=== PATIENT | female | born 1940 | race Caucasian/White ===

== ENCOUNTER 2018-03-27 13:47 | Emergency (ER) | payer OTHER ==
[2018-03-27 16:05] LABS: Urine Blood 3+ (NEG); Urine Glucose NEGATIVE (NEG); Urine Protein 2+ (NEG); Urine Specific Gravity 1.015 (1.005-1.030); Urine pH 6.5 (5.0-7.0)
[2018-03-27 16:10] LABS: Urine Bacteria 20-50 /HPF (<20)
[2018-03-27 16:11] LABS: Urine Amorphous Sediment 1+ /HPF (NONE SEEN); Urine Culture Reflex Order REFLEXED; Urine Mucus 1+ /HPF (NONE SEEN)
--- NOTE | 2018-03-27 16:11 | ER ---
Nurse's Notes [facility] Name: Francie Cota Age: 77 yrs Sex: Female : 1940 Arrival Date: 03/27/2018 Time: 13:51 Bed 30 Private MD: Todd Moore Diagnosis: Urinary tract infection, site not specified Presentation: 03/27 13:56 Presenting complaint: Patient states: Urinary frequency, urgency, and lower abdominal hb pain x 2 days. Pt reports incontinent episode x 1 and passed 2 small blood clots this morning. Transition of care: patient was not received from another setting of care. Onset of symptoms was March 26, 2018. Risk Assessment: Do you want to hurt yourself or someone else? Patient reports no desire to harm self or others. Care prior to arrival: Medication(s) given: Advil x 2 and Eure 1 hr REMODELER. 13:56 Method Of Arrival: Ambulatory hb 13:56 Acuity: CHAD 3 hb 15:38 Initial Sepsis Screen: Does the patient meet any 2 criteria? No. Patient's initial rk2 sepsis screen is negative. Does the patient have a suspected source of infection? Yes: Dysuria/Frequency/Urgency/UTI. Triage Assessment: 15:33 General: Appears in no apparent distress. well developed, well nourished, Behavior is rk2 calm, cooperative. Pain:. Neuro: Level of Consciousness is alert, obeys commands, Oriented to person, place, time, situation. Respiratory: Airway is patent Respiratory effort is even, unlabored, Respiratory pattern is regular, symmetrical. Derm: Skin is pink, warm \T\ dry. Historical: - Allergies: 13:59 Sulfa (Sulfonamide Antibiotics); hb 13:59 Tape; hb - PMHx: 13:59 Depression; Hyperlipidemia; Hypothyroidism; hb - PSHx: 13:59 Hysterectomy; hb - Immunization history:: Adult Immunizations up to date. - Social history:: Smoking status: Patient/guardian denies using tobacco. - Ebola Screening: : No symptoms or risks identified at this time. Screenin:32 Abuse screen: Denies threats or abuse. Nutritional screening: No deficits noted. rk2 Tuberculosis screening: No symptoms or risk factors identified. Fall Risk None identified. Vital Signs: 13:58 BP 157 / 86; Pulse 79; Resp 16; Temp 98.5; Pulse Ox 96% on R/A; Weight 81.65 kg (R); hb Height 5 ft. 2 in. (157.48 cm); Pain 2/10; 16:25 BP 156 / 77; Pulse 67; Resp 16; Pulse Ox 97% on R/A; rk2 13:58 Body Mass Index 32.92 (81.65 kg, 157.48 cm) hb ED Course: 13:51 Patient arrived in ED. mr 13:51 Todd Moore MD is Private Physician. mr 13:58 Triage completed. hb 13:58 Arm band placed on right wrist. hb 14:47 Patient's name was called from ER lobby. No response. hb 14:59 Amira Noonan, ABY is Primary Nurse. rk2 15:03 Natanael Butler PA is PHCP. [facility] 15:03 Franko Greer MD is Attending Physician. jmm 15:38 Patient has correct armband on for positive identification. Bed in low position. Call rk2 light in reach. 16:10 Todd Moore MD is Referral Physician. [facility] 16:26 No provider procedures requiring assistance completed. Patient did not have IV access rk2 during this emergency room visit. Administered Medications: No medications were administered Outcome: 16:10 Discharge ordered by MD. [facility] 16:26 Discharged to home ambulatory. rk2 16:26 Condition: good 16:26 Discharge instructions given to patient, Prescriptions given X 2. 16:27 Patient left the ED. rk2 Signatures: Natanael Butler PA PA jmm Rivera, Maria YuenIrene RN RN Amira Noonan RN RN rk2 Corrections: (The following items were deleted from the chart) 15:57 15:54 URINALYSIS+U.LAB.BRZ drawn and sent. rk2 EDMS
--- NOTE | 2018-03-27 16:11 | EDPHYS ---
Physician Documentation [facility] Name: Francie Cota Age: 77 yrs Sex: Female : 1940 Arrival Date: 03/27/2018 Time: 13:51 Bed 30 Private MD: Todd Moore ED Physician Franko Greer HPI: 03/27 15:13 This 77 yrs old Female presents to ER via Ambulatory with complaints of jmm Urinary Problem. 15:13 Onset: The symptoms/episode began/occurred gradually, today. Associated signs and jmm symptoms: Pertinent positives:. 15:13 The patient presents with urinary symptoms, dysuria. Onset: The symptoms/episode jmm began/occurred acutely. This is a 77 year old female with a history of HLP, depression that presents to the ED with dysuria, urinary frequency, hematuria beginning today. Patient denies fever or abdominal pain. . Historical: - Allergies: 13:59 Sulfa (Sulfonamide Antibiotics); hb 13:59 Tape; hb - PMHx: 13:59 Depression; Hyperlipidemia; Hypothyroidism; hb - PSHx: 13:59 Hysterectomy; hb - Immunization history:: Adult Immunizations up to date. - Social history:: Smoking status: Patient/guardian denies using tobacco. - Ebola Screening: : No symptoms or risks identified at this time. ROS: 15:13 Constitutional: Negative for fever, chills, and weight loss, Cardiovascular: Negative jmm for chest pain, palpitations, and edema, Respiratory: Negative for shortness of breath, cough, wheezing, and pleuritic chest pain, Abdomen/GI: Negative for abdominal pain, nausea, vomiting, diarrhea, and constipation. 15:13 MS/Extremity: Negative for injury and deformity, Skin: Negative for injury, rash, and discoloration, Neuro: Negative for headache, weakness, numbness, tingling, and seizure. 15:13 : Positive for urinary symptoms, urinary frequency, burning with urination. 15:13 All other systems are negative. Exam: 15:13 Head/Face: atraumatic. Cardiovascular: Regular rate and rhythm. No gallops, murmurs, jmm or rubs. Full/Equal distal pulses. Respiratory: Lungs have equal breath sounds bilaterally, clear to auscultation. No rales, rhonchi or wheezes noted. No increased work of breathing, no retractions or nasal flaring. Abdomen/GI: Soft, non-tender, with normal bowel sounds. No distension or tympany. No guarding or rebound. No evidence of tenderness throughout. 15:13 Constitutional: The patient appears in no acute distress, alert, awake. 15:13 Musculoskeletal/extremity: ROM: intact in all extremities. 15:13 Skin: Appearance: Color: normal in color. 15:13 Neuro: Orientation: is normal, Mentation: is normal, Memory: is normal, Gait: is steady. Vital Signs: 13:58 BP 157 / 86; Pulse 79; Resp 16; Temp 98.5; Pulse Ox 96% on R/A; Weight 81.65 kg (R); hb Height 5 ft. 2 in. (157.48 cm); Pain 2/10; 16:25 BP 156 / 77; Pulse 67; Resp 16; Pulse Ox 97% on R/A; rk2 13:58 Body Mass Index 32.92 (81.65 kg, 157.48 cm) hb MDM: 15:11 Patient medically screened. [facility] 15:13 Data reviewed: vital signs, nurses notes. [facility] 18:02 Differential diagnosis: hemorrhagic cystitis, UTI. Counseling: I had a detailed [facility] discussion with the patient and/or guardian regarding: the presence of at least one elevated blood pressure reading (>120/80) during this emergency department visit. ED course: Patient's abdomen is soft, patient is non toxic in appearance, afebrile. I do not currently suspect an acute intraabdominal process or urinary tract infection. Patient will be prescribed oral antibiotics and is advised to follow up with PCP. patient given strict return precautions. patient understood and agrees with the plan of care. . 03/27 14:58 Order name: Urine Dipstick--Ancillary (enter results); Complete Time: 16:19 bd 03/27 16:04 Order name: Urine Microscopic Only; Complete Time: 16:19 EDMS Administered Medications: No medications were administered Disposition: 03/27/18 16:10 Discharged to Home. Impression: Urinary tract infection, site not specified. - Condition is Stable. - Discharge Instructions: Urinary Tract Infection. - Prescriptions for Cephalexin 500 mg Oral Capsule - take 1 capsule by ORAL route every 12 hours for 10 days; 20 capsule. Pyridium 200 mg Oral Tablet - take 1 tablet by ORAL route every 8 hours for 3 days; 9 tablet. - Medication Reconciliation Form, Thank You Letter, Antibiotic Education, Prescription Opioid Use form. - Follow up: Todd Moore MD; When: 1 - 2 days; Reason: Continuance of care. - Notes: Please follow up with your primary care provider in 1 to 2 days for reevaluation. Please return to the ED if you develop vomiting, fever, back pain or any other concerning symptoms. Addendum: 03/29/2018 09:00 Co-signature as Attending Physician, Franko Greer MD I agree with the assessment and c shaffer plan of care. Signatures: Dispatcher [employer] [facility] Franko Greer MD MD cha Mickail, Joel, PA PA jmm Baxter, Heather, RN RN Amira Alex RN RN rk2 Corrections: (The following items were deleted from the chart) 03/27 15:57 15:24 URINALYSIS+U.LAB.BRZ ordered. [facility] 16:27 16:10 03/27/2018 16:10 Discharged to Home. Impression: Urinary tract infection, site rk2 not specified. Condition is Stable. Forms are Medication Reconciliation Form, Thank You Letter, Antibiotic Education, Prescription Opioid Use. Follow up: Todd Moore; When: 1 - 2 days; Reason: Continuance of care. geremias
== END 2018-03-27 16:27 | disposition home or self-care (01) ==
LOC: ER 13:47
DX: N39.0 Urinary tract infection, site not specified (principal); E78.5 Hyperlipidemia, unspecified; E03.9 Hypothyroidism, unspecified; Z88.2 Allergy status to sulfonamides; Z91.048 Other nonmedicinal substance allergy status
CPT/HCPCS: 81003; 81015; 99282

== ENCOUNTER 2018-08-14 09:26 | Emergency (ER) | payer OTHER ==
--- NOTE | 2018-08-14 11:31 | ER ---
Nurse's Notes [facility] Name: Francie Cota Age: 77 yrs Sex: Female : 1940 Arrival Date: 08/14/2018 Time: 09:30 Bed 14 Private MD: Todd Moore Diagnosis: Acute bronchitis Presentation: 08/14 09:54 Presenting complaint: Patient states: Cough and congestion for 6 days. Transition of aj care: patient was not received from another setting of care. Onset of symptoms was August 09, 2018. Risk Assessment: Do you want to hurt yourself or someone else? Patient reports no desire to harm self or others. Initial Sepsis Screen: Does the patient meet any 2 criteria? No. Patient's initial sepsis screen is negative. Does the patient have a suspected source of infection? No. Patient's initial sepsis screen is negative. Care prior to arrival: None. 09:54 Method Of Arrival: Ambulatory 09:54 Acuity: CHAD 3 aj Triage Assessment: 09:55 General: Appears in no apparent distress. comfortable, Behavior is calm, cooperative, aj appropriate for age. Pain: Denies pain. EENT: Reports nasal congestion nasal discharge. Neuro: Level of Consciousness is awake, alert, obeys commands, Oriented to person, place, time, situation, Appropriate for age. Respiratory: Reports cough that is productive. Derm: Skin is intact, is healthy with good turgor, Skin is pink, warm \T\ dry. normal. Historical: - Allergies: 09:55 Sulfa (Sulfonamide Antibiotics); aj 09:55 Tape; aj - PMHx: 09:55 Depression; Hyperlipidemia; Hypothyroidism; aj - PSHx: 09:55 Hysterectomy; aj - Immunization history:: Adult Immunizations up to date. - Social history:: Smoking status: Patient/guardian denies using tobacco. - Ebola Screening: : Patient negative for fever greater than or equal to 101.5 degrees Fahrenheit, and additional compatible Ebola Virus Disease symptoms Patient denies exposure to infectious person Patient denies travel to an Ebola-affected area in the 21 days before illness onset No symptoms or risks identified at this time. Screenin:20 Abuse screen: Denies threats or abuse. Nutritional screening: No deficits noted. em Tuberculosis screening: No symptoms or risk factors identified. Fall Risk None identified. Assessment: 10:30 General: Appears in no apparent distress. comfortable, Behavior is calm, cooperative, em Denies fever. Pain: Denies pain. Neuro: Level of Consciousness is awake, alert, obeys commands, Oriented to person, place, time, situation. Cardiovascular: Denies chest pain, Capillary refill < 3 seconds Patient's skin is warm and dry. Respiratory: Reports cough that is productive, pain with cough Airway is patent Respiratory effort is even, unlabored, Respiratory pattern is regular, symmetrical, Breath sounds are clear bilaterally. GI: Abdomen is flat. : No signs and/or symptoms were reported regarding the genitourinary system. EENT: No signs and/or symptoms were reported regarding the EENT system. Derm: Skin is intact, Skin is pink, warm \T\ dry. Musculoskeletal: Range of motion: intact in all extremities. 10:30 Reassessment: I agree with assessment completed by Go Estrada LVN . aa5 11:40 Reassessment: Patient appears in no apparent distress at this time. Patient and/or em family updated on plan of care and expected duration. Pain level reassessed. Patient is alert, oriented x 3, equal unlabored respirations, skin warm/dry/pink. Vital Signs: 09:55 BP 150 / 73; Pulse 94; Resp 19; Temp 98.2; Pulse Ox 96% on R/A; Weight 81.65 kg; Height aj 5 ft. 2 in. (157.48 cm); 11:42 BP 135 / 93; Pulse 81; Resp 18; Pulse Ox 98% on R/A; Pain 0/10; em 09:55 Body Mass Index 32.92 (81.65 kg, 157.48 cm) ED Course: 09:30 Patient arrived in ED. mr 09:30 Todd Moore MD is Private Physician. mr 09:54 Triage completed. aj 09:55 Arm band placed on right wrist. Patient placed in an exam room. aj 10:02 Natanael Butler PA is PHCP. [facility] 10:02 Rudy Winkler MD is Attending Physician. [facility] 10:03 Natanael Butler PA is PHCP. [facility] 10:03 Rudy Winkler MD is Attending Physician. [facility] 10:16 Influenza Screen (A Sent. [facility] 10:17 Influenza Screen (a \T\ B) Sent. [facility] 10:17 Flu and/or RSV swab sent to lab. [facility] 10:20 Go Estrada LVN is Primary Nurse. em 10:21 Patient has correct armband on for positive identification. Bed in low position. Call em light in reach. 10:26 Chest Pa And Lat (2 Views) XRAY In Process Unspecified. EDMS 11:30 Todd Moore MD is Referral Physician. [facility] 11:43 No provider procedures requiring assistance completed. Patient did not have IV access em during this emergency room visit. Administered Medications: No medications were administered Outcome: 11:30 Discharge ordered by MD. m 11:43 Discharged to home ambulatory. em 11:43 Condition: good 11:43 Discharge instructions given to patient, Instructed on discharge instructions, follow up and referral plans. medication usage, Demonstrated understanding of instructions, follow-up care, medications, Prescriptions given X 3. 11:43 Patient left the ED. em Signatures: Dispatcher [employer] EDMS Nayeli Llamas, Natanael Thomas RN, PA PA [facility] Francie Garcia mr Go Estrada LVN MARBLE RUBBER Arti Delatorre RN RN Deandra Day 1 Diane Cancino [facility] Corrections: (The following items were deleted from the chart) 10:21 07:30 Patient has correct armband on for positive identification. Placed in gown. Bed em in low position. Call light in reach. em 10:26 10:23 Patient moved to radiology via wheelchair. ag1 ag1 10:27 10:23 Patient moved to radiology via wheelchair. ag1 ag1
--- NOTE | 2018-08-14 11:31 | EDPHYS ---
Physician Documentation [facility] Name: Francie Cota Age: 77 yrs Sex: Female : 1940 Arrival Date: 08/14/2018 Time: 09:30 Bed 14 Private MD: Todd Moore ED Physician Rudy Winkler HPI: 08/14 10:11 This 77 yrs old Female presents to ER via Ambulatory with complaints of jmm Cough, Congestion. 10:11 The patient or guardian reports cough, that is constant. Onset: The symptoms/episode jmm began/occurred gradually, 6 day(s) ago. Associated signs and symptoms: Pertinent positives:. This is a 77 year old female with a history of HLP that presents to the ED with productive cough after returning from a trip to [place]. Patient also complains of sinus pressure. Denies fever. . Historical: - Allergies: 09:55 Sulfa (Sulfonamide Antibiotics); aj 09:55 Tape; aj - PMHx: 09:55 Depression; Hyperlipidemia; Hypothyroidism; aj - PSHx: 09:55 Hysterectomy; aj - Immunization history:: Adult Immunizations up to date. - Social history:: Smoking status: Patient/guardian denies using tobacco. - Ebola Screening: : Patient negative for fever greater than or equal to 101.5 degrees Fahrenheit, and additional compatible Ebola Virus Disease symptoms Patient denies exposure to infectious person Patient denies travel to an Ebola-affected area in the 21 days before illness onset No symptoms or risks identified at this time. ROS: 10:11 Eyes: Negative for injury, pain, redness, and discharge, ENT: Negative for injury, jmm pain, and discharge, Cardiovascular: Negative for chest pain, palpitations, and edema. 10:11 Abdomen/GI: Negative for abdominal pain, nausea, vomiting, diarrhea, and constipation, Back: Negative for injury and pain, MS/Extremity: Negative for injury and deformity, Skin: Negative for injury, rash, and discoloration, Neuro: Negative for headache, weakness, numbness, tingling, and seizure. 10:11 Constitutional: Positive for malaise. 10:11 Respiratory: Positive for cough, with green sputum. 10:11 All other systems are negative. Exam: 10:11 Head/Face: atraumatic. Chest/axilla: Normal chest wall appearance and motion. jmm Cardiovascular: Regular rate and rhythm. No edema appreciated Respiratory: Normal respirations, no respiratory distress appreciated 10:11 Abdomen/GI: Non distended, soft Back: Normal ROM Skin: General appearance color normal MS/ Extremity: Moves all extremities, no obvious deformities appreciated, no edema noted to the lower extremities Neuro: Awake and alert, normal gait Psych: Behavior is normal, Mood is normal, Patient is cooperative and pleasant 10:11 Constitutional: The patient appears in no acute distress, alert, awake. 10:11 ENT: TM's: are normal, Posterior pharynx: is normal. 10:11 Neck: ROM/movement: is normal. Vital Signs: 09:55 BP 150 / 73; Pulse 94; Resp 19; Temp 98.2; Pulse Ox 96% on R/A; Weight 81.65 kg; Height aj 5 ft. 2 in. (157.48 cm); 11:42 BP 135 / 93; Pulse 81; Resp 18; Pulse Ox 98% on R/A; Pain 0/10; em 09:55 Body Mass Index 32.92 (81.65 kg, 157.48 cm) aj MDM: 10:08 Patient medically screened. [facility] 10:11 Data reviewed: vital signs, nurses notes. Data interpreted: Pulse oximetry: on room air [facility] is 96 %. Interpretation: normal. Counseling: I had a detailed discussion with the patient and/or guardian regarding:. 11:30 Counseling: I had a detailed discussion with the patient and/or guardian regarding: the [facility] historical points, exam findings, and any diagnostic results supporting the discharge/admit diagnosis, lab results, radiology results, the need for outpatient follow up, to return to the emergency department if symptoms worsen or persist or if there are any questions or concerns that arise at home. 08/14 10:08 Order name: Influenza Screen (a \T\ B) [facility] 08/14 10:09 Order name: Influenza Screen (A ; Complete Time: 10:42 EDMS 08/14 10:08 Order name: Chest Pa And Lat (2 Views) XRAY [facility] Administered Medications: No medications were administered Disposition: 18:01 Co-signature as Attending Physician, Rudy Winkler MD. Disposition: 08/14/18 11:30 Discharged to Home. Impression: Acute bronchitis. - Condition is Stable. - Discharge Instructions: Acute Bronchitis, Adult. - Prescriptions for Prednisone 20 mg Oral Tablet - take 3 tablet by ORAL route once daily for 5 days; 15 tablet. Zithromax Z- Jerardo 250 mg Oral Tablet - take 1 tablet by ORAL route as directed for 5 days Day 1 - take two (2) tablets one time. Day 2, 3, 4 , 5 take one (1) tablet once daily.; 6 tablet. Albuterol Sulfate 90 mcg/actuation - inhale 1-2 puff by INHALATION route every 4-6 hours; 1 Inhaler. - Medication Reconciliation Form, Thank You Letter, Antibiotic Education, Prescription Opioid Use form. - Follow up: Todd Moore MD; When: 2 - 3 days; Reason: Recheck today's complaints, Continuance of care, Re-evaluation by your physician. Signatures: Dispatcher [employer] Nayeli Alcantara, Natanael Thomas RN, PA PA Go Diaz, SIGNAL CIRCUIT DESIGNER SIGNAL CIRCUIT DESIGNER em Rudy Winkler MD MD gs Corrections: (The following items were deleted from the chart) 11:43 11:30 08/14/2018 11:30 Discharged to Home. Impression: Acute bronchitis. Condition is em Stable. Forms are Medication Reconciliation Form, Thank You Letter, Antibiotic Education, Prescription Opioid Use. Follow up: Todd Moore; When: 2 - 3 days; Reason: Recheck today's complaints, Continuance of care, Re-evaluation by your physician. caroline
--- NOTE | 2018-08-14 12:32 | RAD REPORT ---
EXAM DESCRIPTION: Elmira Huerta (2 Views)08/14/2018 10:28 am CLINICAL HISTORY: Cough COMPARISON: 2017 FINDINGS: The lungs appear clear of acute infiltrate. The heart is normal size. A small to moderate hiatal hernia is seen. IMPRESSION: No acute abnormalities displayed
== END 2018-08-14 11:43 | disposition home or self-care (01) ==
LOC: ER 09:26
DX: J20.9 Acute bronchitis, unspecified (principal); Z88.2 Allergy status to sulfonamides; Z91.048 Other nonmedicinal substance allergy status
CPT/HCPCS: 71046; 87804; 99283

== ENCOUNTER 2019-03-16 15:38 | Emergency (ER) | payer OTHER ==
--- NOTE | 2019-03-16 17:24 | ER ---
Nurse's Notes [facility] Name: Francie Cota Age: 78 yrs Sex: Female : 1940 Arrival Date: 03/16/2019 Time: 15:39 Bed 4 Private MD: oTdd Moore Diagnosis: Superficial injury of head;Abrasion of unspecified part of head Presentation: 03/16 15:40 Presenting complaint: Patient states: "I lost balance trying to greens picker a rock and I aa5 went down the hill". Unknown LOC. Abrasions noted to left side of face. Pt also c/o numbness to right side of face and headache that began Thursday. Precision Devices Inspector/Tester are equal and no drift noted. 15:40 Transition of care: patient was not received from another setting of care. Onset of aa5 symptoms was March 16, 2019. Risk Assessment: Do you want to hurt yourself or someone else? Patient reports no desire to harm self or others. Care prior to arrival: None. 15:40 Acuity: CHAD 2 aa5 15:40 Method Of Arrival: Wheelchair aa5 Historical: - Allergies: 15:40 Sulfa (Sulfonamide Antibiotics); aa5 15:40 Tape; aa5 - PMHx: 15:40 Depression; Hyperlipidemia; Hypothyroidism; Broken skull to right frontral side; aa5 - PSHx: 15:40 Hysterectomy; back sx; aa5 - Ebola Screening: : No symptoms or risks identified at this time. Vital Signs: 15:40 BP 147 / 94; Pulse 77; Resp 18 S; Temp 97.5(TE); Pulse Ox 98% on R/A; aa5 ED Course: 15:39 Patient arrived in ED. rg4 15:39 Todd Moore MD is Private Physician. rg4 15:40 Arm band placed on Patient placed in an exam room, on a stretcher. aa5 15:47 Vikas Rodriguez, ABY is Primary Nurse. sg 15:49 Triage completed. aa5 15:50 Yovany Avalos PA is PHCP. jr8 15:50 Franko Greer MD is Attending Physician. jr8 16:27 CT Head Brain wo Cont In Process Unspecified. EDMS 17:23 Todd Moore MD is Referral Physician. jr8 Administered Medications: No medications were administered Outcome: 17:23 Discharge ordered by MD. العلي 17:57 Patient left the ED. iw Signatures: Dispatcher [employer] EDMS Vikas Rodriguez RN Brea Giang RN RN iw Calderon, Audri, RN RN aa5 Yovany Avalos PA PA jr8 Garcia, Rubi 4
--- NOTE | 2019-03-16 17:24 | EDPHYS ---
Physician Documentation [facility] Name: Francie Cota Age: 78 yrs Sex: Female : 1940 Arrival Date: 03/16/2019 Time: 15:39 Bed 4 Private MD: Todd Moore ED Physician Franko Greer HPI: 03/16 17:17 This 78 yrs old Female presents to ER via Wheelchair with complaints of Fall jr8 Injury. 17:17 Details of fall: The patient fell from an upright position, while standing. Onset: The jr8 symptoms/episode began/occurred acutely, today. Associated injuries: The patient sustained injury to the head, abrasion, hematoma, pain, tenderness. Severity of symptoms: At their worst the symptoms were moderate, in the emergency department the symptoms have improved. It is unknown whether or not the patient has had similar symptoms in the past. The patient has not recently seen a physician. Patient stated that she has also had a mild headache since this past Thursday and noted numbness to right side of face. Denies any other symptoms . 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 ROS: 17:17 Eyes: Negative for injury, pain, redness, and discharge, ENT: Negative for injury, jr8 pain, and discharge, Neck: Negative for injury, pain, and swelling, Cardiovascular: Negative for chest pain, palpitations, and edema, Respiratory: Negative for shortness of breath, cough, wheezing, and pleuritic chest pain, Abdomen/GI: Negative for abdominal pain, nausea, vomiting, diarrhea, and constipation, Back: Negative for injury and pain, MS/Extremity: Negative for injury and deformity. 17:17 Skin: Positive for avulsion, ecchymosis, hematoma, of the face. 17:17 Neuro: Positive for headache, numbness. Exam: 17:17 Eyes: Pupils equal round and reactive to light, extra-ocular motions intact. Lids and jr8 lashes normal. Conjunctiva and sclera are non-icteric and not injected. Cornea within normal limits. Periorbital areas with no swelling, redness, or edema. ENT: Nares patent. No nasal discharge, no septal abnormalities noted. Tympanic membranes are normal and external auditory canals are clear. Oropharynx with no redness, swelling, or masses, exudates, or evidence of obstruction, uvula midline. Mucous membranes moist. Neck: Trachea midline, no thyromegaly or masses palpated, and no cervical lymphadenopathy. Supple, full range of motion without nuchal rigidity, or vertebral point tenderness. No Meningismus. Cardiovascular: Regular rate and rhythm with a normal S1 and S2. No gallops, murmurs, or rubs. Normal PMI, no JVD. No pulse deficits. Respiratory: Lungs have equal breath sounds bilaterally, clear to auscultation and percussion. No rales, rhonchi or wheezes noted. No increased work of breathing, no retractions or nasal flaring. Abdomen/GI: Soft, non-tender, with normal bowel sounds. No distension or tympany. No guarding or rebound. No evidence of tenderness throughout. Back: No spinal tenderness. No costovertebral tenderness. Full range of motion. Skin: Warm, dry with normal turgor. Normal color with no rashes, no lesions, and no evidence of cellulitis. MS/ Extremity: Pulses equal, no cyanosis. Neurovascular intact. Full, normal range of motion. Neuro: Awake and alert, GCS 15, oriented to person, place, time, and situation. Cranial nerves II-XII grossly intact. Motor strength 5/5 in all extremities. Sensory grossly intact. Cerebellar exam normal. Normal gait. 17:17 Head/face: Noted is abrasion(s), that are mild, of the forehead and left cheek, hematoma, that is moderate, of the forehead left side just above and into supraorbital region . Vital Signs: 15:40 BP 147 / 94; Pulse 77; Resp 18 S; Temp 97.5(TE); Pulse Ox 98% on R/A; aa5 MDM: 15:56 Patient medically screened. jr8 17:17 Data reviewed: vital signs, nurses notes, radiologic studies, CT scan, and as a result, jr8 I will discharge patient. Data interpreted: Pulse oximetry: on room air is 98 %. Interpretation: normal. Counseling: I had a detailed discussion with the patient and/or guardian regarding: the historical points, exam findings, and any diagnostic results supporting the discharge/admit diagnosis, radiology results, the need for outpatient follow up, a family practitioner, to return to the emergency department if symptoms worsen or persist or if there are any questions or concerns that arise at home. ED course: Discussed with patient and family there there are no focal neurologic deficits on physical exam. CT does not reveal any ischemic lesion, mass, bleed, or cranial fracture. Would f/u with the headache and numbness. could be something else manifesting but has not presented itself yet such as zoster infection or carmichael's palsy. Migraines can also cause this. To monitor closely over the next couple of days. If worse to come back. Otherwise ice on/off for acute injury. Family and patient good with this . 03/16 16:01 Order name: CT Head Brain wo Cont jr8 Administered Medications: No medications were administered Disposition: 03/17 07:06 Co-signature as Attending Physician, Franko Greer MD I agree with the assessment and temo plan of care. Disposition: 03/16/19 17:23 Discharged to Home. Impression: Superficial injury of head, Abrasion of unspecified part of head. - Condition is Stable. - Discharge Instructions: Head Injury, Adult, Hematoma. - Medication Reconciliation Form, Thank You Letter, Antibiotic Education, Prescription Opioid Use form. - Follow up: Todd Moore MD; When: 2 - 3 days; Reason: Recheck today's complaints, Continuance of care, Re-evaluation by your physician. - Problem is new. - Symptoms have improved. Signatures: Dispatcher [employer] EDFranko Grace MD MD cha Williams, Irene RN Arti Quiñonez RN RN aa5 Yovany Avalos PA PA jr8 Corrections: (The following items were deleted from the chart) 03/16 17:57 17:23 03/16/2019 17:23 Discharged to Home. Impression: Superficial injury of head; iw Abrasion of unspecified part of head. Condition is Stable. Forms are Medication Reconciliation Form, Thank You Letter, Antibiotic Education, Prescription Opioid Use. Follow up: Todd Moore; When: 2 - 3 days; Reason: Recheck today's complaints, Continuance of care, Re-evaluation by your physician. Problem is new. Symptoms have improved. jr8
--- NOTE | 2019-03-17 12:08 | RAD REPORT ---
EXAM DESCRIPTION: CT - Head Brain Wo Cont - 03/17/2019 11:34 am CLINICAL HISTORY: Head injury status post fall COMPARISON: None. TECHNIQUE: Computed axial tomography of the head was obtained. IV contrast was not requested. All CT scans are performed using dose optimization technique as appropriate and may include automated exposure control or mA/KV adjustment according to patient size. FINDINGS: Left frontal scalp hematoma. An intracranial bleed is not seen . The ventricles are normal in caliber. No extra-axial fluid collection is noted. Moderate bilateral low-density areas within periventricular , deep and subcortical white matter probably ischemic changes secondary to small vessel disease Fluid within the sinuses/ mastoids is not seen. IMPRESSION: No acute intracranial abnormality is seen. If patient's symptoms persist MRI of the bra in would be recommended.
== END 2019-03-16 17:57 | disposition home or self-care (01) ==
LOC: ER 15:38
DX: S00.91XA Abrasion of unspecified part of head, initial encounter (principal); S00.90XA Unspecified superficial injury of unspecified part of head, initial encounter; W18.30XA Fall on same level, unspecified, initial encounter; F32.9 Major depressive disorder, single episode, unspecified; E78.5 Hyperlipidemia, unspecified; E03.9 Hypothyroidism, unspecified; Z88.2 Allergy status to sulfonamides
CPT/HCPCS: 70450; 99282

== ENCOUNTER 2019-07-28 10:51 | Emergency (ER) | payer OTHER ==
[2019-07-28 12:17] LABS: Absolute Lymphocytes (CBC) 3.3 K/uL (0.7-4.9); Basophils % 0.4 % (0-1.3); MPV 10.2 fL (7.6-11.3); RBC Red Blood Cell Count 4.31 M/uL (3.86-4.86)
[2019-07-28 12:37] LABS: Albumin 4.3 g/dL (3.4-5.0); Bilirubin Direct 0.2 mg/dL (0-0.2); Bilirubin Total 0.5 mg/dL (0.2-1.0)
--- NOTE | 2019-07-28 13:35 | RAD REPORT ---
EXAM DESCRIPTION: CTAbdomen Pelvis W Contrast - 07/28/2019 1:24 pm CLINICAL HISTORY: Abdominal pain. left sided abdominal pain COMPARISON: No comparisons TECHNIQUE: Biphasic CT imaging of the abdomen and pelvis was performed with 100 ml non-ionic IV cont rast. All CT scans are performed using dose optimization technique as appropriate and may include automated exposure control or mA/KV adjustment according to patient size. FINDINGS: The lung bases are clear. Moderate axial hiatal hernia. The liver, spleen, pancreas, adrenal glands and kidneys are within normal limits. No bowel obstruction, free air, free fluid or abscess. Scattered colonic diverticula. The appendix is normal. No evidence of significant lymphadenopathy. Postsurgical changes lower lumbar spine with hardware in place. IMPRESSION: No acute intra-abdominal or pelvic finding. Moderate spondylosis lower lumbar spine with hardware in place. Moderate axial hiatal hernia.
[2019-07-28 15:49] LABS: Urine Bacteria <20 /HPF (<20); Urine Culture Reflex Order NOT NEEDED
--- NOTE | 2019-07-28 15:55 | EDPHYS ---
Physician Documentation [facility] Name: Francie Cota Age: 78 yrs Sex: Female : 1940 Arrival Date: 07/28/2019 Time: 10:54 Bed 14 Private MD: Todd Moore ED Physician Rudy Winkler HPI: 07/28 11:40 This 78 yrs old Female presents to ER via Ambulatory with complaints of Back jmm Pain. 11:40 The patient presents with pain that is acute. The symptoms are located in the left jmm flank and right flank. Onset: The symptoms/episode began/occurred gradually, 1 week(s) ago. The pain radiates to the abdomen. Associated signs and symptoms: Pertinent positives: abdominal pain, Pertinent negatives:. This is a 78 year old female with a history of HTN, HLP that presents to the ED with complaints of bilaterally flank pain beginning 1 week ago. patient has taken Macrobid without relief. also complains of left sided abdominal pain. Denies vomiting or diarrhea. Complains of subjective fever. . 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 - Social history:: Smoking status: Patient/guardian denies using tobacco, Patient/guardian denies using alcohol, street drugs. - Ebola Screening: : Patient negative for fever greater than or equal to 101.5 degrees Fahrenheit, and additional compatible Ebola Virus Disease symptoms Patient denies exposure to infectious person Patient denies travel to an Ebola-affected area in the 21 days before illness onset No symptoms or risks identified at this time. ROS: 11:40 Cardiovascular: Negative for chest pain, palpitations, and edema, Respiratory: Negative jmm for shortness of breath, cough, wheezing, and pleuritic chest pain. 11:40 Constitutional: Positive for body aches, chills, malaise. 11:40 Abdomen/GI: Positive for abdominal pain. 11:40 Back: Positive for flank pain, bilaterally. 11:40 MS/extremity: Positive for 11:40 Skin: 11:40 All other systems are negative. Exam: 11:40 Constitutional: This is a well developed, well nourished patient who is awake, alert, jmm and in no acute distress. Head/Face: atraumatic. Eyes: EOMI, no conjunctival erythema appreciated ENT: Moist Mucus Membranes Neck: Trachea midline, Supple Chest/axilla: Normal chest wall appearance and motion. Cardiovascular: Regular rate and rhythm. No edema appreciated Respiratory: Normal respirations, no respiratory distress appreciated 11:40 Abdomen/GI: Inspection: abdomen appears normal, Bowel sounds: normal, Palpation: soft, moderate abdominal tenderness, in the left lower quadrant. 11:40 : CVA tenderness, noted bilaterally. 11:40 Musculoskeletal/extremity: ROM: intact in all extremities. 11:40 Skin: Appearance: Color: normal in color. 11:40 Neuro: Orientation: is normal, Mentation: is normal, Memory: is normal. 11:40 Psych: Behavior/mood is pleasant, cooperative. Vital Signs: 11:13 BP 128 / 91; Pulse 91; Resp 16; Temp 98.3; Pulse Ox 99% on R/A; Weight 83.91 kg; Height ch 5 ft. 2 in. (157.48 cm); Pain 8/10; 12:13 BP 132 / 75; Pulse 74; Resp 17; Pulse Ox 96% on R/A; Pain 8/10; rb1 13:30 BP 126 / 85; Pulse 77; Resp 16; Pulse Ox 98% on R/A; rb1 14:30 BP 166 / 68; Pulse 74; Resp 16; Pulse Ox 99% on R/A; rb1 15:30 BP 155 / 86; Pulse 85; Resp 17; Pulse Ox 98% on R/A; Pain 6/10; rb1 11:13 Body Mass Index 33.84 (83.91 kg, 157.48 cm) ch 13:[address] rb1 MDM: 11:30 Patient medically screened. [facility] 15:53 Data reviewed: vital signs, nurses notes. Counseling: I had a detailed discussion with caroline the patient and/or guardian regarding: the historical points, exam findings, and any diagnostic results supporting the discharge/admit diagnosis, lab results, radiology results, the need for outpatient follow up, to return to the emergency department if symptoms worsen or persist or if there are any questions or concerns that arise at home. ED course: Patient is alert and non toxic in appearance in the ED. Patient advised to follow up with Urology or PCP for reevaluation. Patient is otherwise given strict return precautions. Patient understood and agrees with the plan of care. . 07/28 11:37 Order name: Basic Metabolic Panel; Complete Time: 12:57 [facility] 07/28 11:37 Order name: CBC with Diff; Complete Time: 12:57 [facility] 07/28 11:37 Order name: Creatinine for Radiology; Complete Time: 12:57 [facility] 07/28 11:37 Order name: Hepatic Function; Complete Time: 12:57 [facility] 07/28 11:37 Order name: Lipase; Complete Time: 12:57 [facility] 07/28 11:37 Order name: Lactate; Complete Time: 12:57 [facility] 07/28 11:37 Order name: IV Saline Lock; Complete Time: 12:13 [facility] 07/28 11:37 Order name: Labs collected and sent; Complete Time: 12:13 [facility] 07/28 11:37 Order name: Blood Culture Adult (2) [facility] 07/28 11:37 Order name: Procalcitonin; Complete Time: 14:08 [facility] 07/28 11:40 Order name: CT Abd/Pelvis - IV Contrast Only; Complete Time: 13:42 [facility] 07/28 13:43 Order name: Urine Dipstick-Ancillary (obtain specimen); Complete Time: 15:30 [facility] 07/28 13:43 Order name: Urine Culture [facility] 07/28 13:43 Order name: Urine Microscopic Only; Complete Time: 15:52 jmm Administered Medications: No medications were administered Disposition: 17:25 Co-signature as Attending Physician, Rudy Winkler MD. Disposition: 07/28/19 15:54 Discharged to Home. Impression: Urinary tract infection, site not specified. - Condition is Stable. - Discharge Instructions: Urinary Tract Infection, Adult. - Prescriptions for Cephalexin 500 mg Oral Capsule - take 1 capsule by ORAL route every 12 hours for 10 days; 20 capsule. - Medication Reconciliation Form, Thank You Letter, Antibiotic Education, Prescription Opioid Use form. - Follow up: Joan Sage MD; When: 2 - 3 days; Reason: Recheck today's complaints, Continuance of care, Re-evaluation by your physician. Signatures: Dispatcher [employer] EDMS Carina James, RN RN ch Natanael Butler PA PA jmm Barber, Rebecca, RN RN rb1 Rudy Winkler MD MD gs Corrections: (The following items were deleted from the chart) 16:09 15:54 07/28/2019 15:54 Discharged to Home. Impression: Urinary tract infection, site rb1 not specified. Condition is Stable. Forms are Medication Reconciliation Form, Thank You Letter, Antibiotic Education, Prescription Opioid Use. Follow up: Joan Sage; When: 2 - 3 days; Reason: Recheck today's complaints, Continuance of care, Re-evaluation by your physician. caroline
--- NOTE | 2019-07-28 15:55 | ER ---
Nurse's Notes [facility] Name: Francie Cota Age: 78 yrs Sex: Female : 1940 Arrival Date: 07/28/2019 Time: 10:54 Bed 14 Private MD: Todd Moore Diagnosis: Urinary tract infection, site not specified Presentation: 07/28 11:11 Presenting complaint: Patient states: lower back R side pain. being treated for UTI ch since 07/20, took macrobid but still feeling bad. Transition of care: patient was not received from another setting of care. Onset of symptoms was July 19, 2019. Risk Assessment: Do you want to hurt yourself or someone else? Patient reports no desire to harm self or others. Initial Sepsis Screen: Does the patient meet any 2 criteria? No. Patient's initial sepsis screen is negative. Does the patient have a suspected source of infection? No. Patient's initial sepsis screen is negative. 11:11 Method Of Arrival: Ambulatory 11:11 Acuity: CHAD 3 11:20 Care prior to arrival: None. rb1 Triage Assessment: 11:13 General: Appears in no apparent distress. uncomfortable, Behavior is calm, cooperative, ch appropriate for age. Pain: Complains of pain in low back area and right low back Pain currently is 8 out of 10 on a pain scale. Respiratory: No deficits noted. Musculoskeletal: Circulation, motion, and sensation intact. Capillary refill < 3 seconds. 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 - Social history:: Smoking status: Patient/guardian denies using tobacco, Patient/guardian denies using alcohol, street drugs. - Ebola Screening: : Patient negative for fever greater than or equal to 101.5 degrees Fahrenheit, and additional compatible Ebola Virus Disease symptoms Patient denies exposure to infectious person Patient denies travel to an Ebola-affected area in the 21 days before illness onset No symptoms or risks identified at this time. Screenin:20 Abuse screen: Denies threats or abuse. Nutritional screening: No deficits noted. rb1 Tuberculosis screening: No symptoms or risk factors identified. Fall Risk None identified. Assessment: 11:20 General: Appears uncomfortable, Behavior is calm, cooperative, Denies fever. Pain: rb1 Complains of pain in right low back Pain currently is 8 out of 10 on a pain scale. Pain began 1 day ago. Neuro: Level of Consciousness is awake, alert, obeys commands, Oriented to person, place, time, situation. Cardiovascular: Capillary refill < 3 seconds is brisk in bilateral fingers. Respiratory: Airway is patent Respiratory effort is even, unlabored, Respiratory pattern is regular, symmetrical. GI: No signs and/or symptoms were reported involving the gastrointestinal system. : No signs and/or symptoms were reported regarding the genitourinary system. Derm: Skin is pink, warm \T\ dry. Musculoskeletal: Range of motion: intact in all extremities. 12:20 Reassessment: Patient appears in no apparent distress at this time. No changes from rb1 previously documented assessment. 13:11 Reassessment: Pt. went to CT. rb1 13:31 Reassessment: Patient appears in no apparent distress at this time. Patient and/or rb1 family updated on plan of care and expected duration. Pain level reassessed. Patient is alert, oriented x 3, equal unlabored respirations, skin warm/dry/pink. 14:27 Reassessment: Patient appears in no apparent distress at this time. No changes from rb1 previously documented assessment. 15:27 Reassessment: Patient appears in no apparent distress at this time. Patient and/or rb1 family updated on plan of care and expected duration. Pain level reassessed. Patient is alert, oriented x 3, equal unlabored respirations, skin warm/dry/pink. Provider at bedside. Vital Signs: 11:13 BP 128 / 91; Pulse 91; Resp 16; Temp 98.3; Pulse Ox 99% on R/A; Weight 83.91 kg; Height ch 5 ft. 2 in. (157.48 cm); Pain 8/10; 12:13 BP 132 / 75; Pulse 74; Resp 17; Pulse Ox 96% on R/A; Pain 8/10; rb1 13:30 BP 126 / 85; Pulse 77; Resp 16; Pulse Ox 98% on R/A; rb1 14:30 BP 166 / 68; Pulse 74; Resp 16; Pulse Ox 99% on R/A; rb1 15:30 BP 155 / 86; Pulse 85; Resp 17; Pulse Ox 98% on R/A; Pain 6/10; rb1 11:13 Body Mass Index 33.84 (83.91 kg, 157.48 cm) 13:[address] rb1 ED Course: 10:54 Patient arrived in ED. as 10:55 Todd Moore MD is Private Physician. as 11:12 Triage completed. 11:13 Arm band placed on left wrist. Patient placed in an exam room, on a stretcher. 11:19 Sylvia Workman, RN is Primary Nurse. rb1 11:20 Patient has correct armband on for positive identification. Bed in low position. Call [facility] light in reach. Side rails up X 1. Pulse ox on. NIBP on. Warm blanket given. 11:25 Natanael Butler PA is PHCP. [facility] 11:25 Rudy Winkler MD is Attending Physician. [facility] 11:55 Inserted saline lock: 22 gauge in right antecubital area, using aseptic technique. rb1 Blood collected. 12:26 Second set of blood cultures drawn by wi. kj1 13:24 CT Abd/Pelvis - IV Contrast Only In Process Unspecified. EDMS 15:54 Joan Sage MD is Referral Physician. [facility] 16:08 No provider procedures requiring assistance completed. IV discontinued, intact, rb1 bleeding controlled, No redness/swelling at site. Pressure dressing applied. Administered Medications: No medications were administered Outcome: 15:54 Discharge ordered by . [facility] 16:08 Discharged to home ambulatory. [facility] 16:08 Condition: stable 16:08 Discharge instructions given to patient, Instructed on discharge instructions, follow up and referral plans. medication usage, Demonstrated understanding of instructions, follow-up care, medications, Prescriptions given X 1. 16:09 Patient left the ED. rb1 Addendum: 07/31/2019 08:25 Addendum: Culture Results: Positive urine culture. No further action required. Bacteria i w sensitive to prescribed antibiotic. Signatures: Dispatcher [employer] EDMS Carina James, RN ABY Natanael Butler PA PA Tamara Stanton as Brea Anderson RN RN Sylvia Workman, ABY RN [facility] Ana Elizondo kj1
[2019-07-28 17:26] VITALS: TEMP 98.3
[2019-07-28 17:31] VITALS: BP 155/86; O2SAT 98
== END 2019-07-28 16:09 | disposition home or self-care (01) ==
LOC: ER 10:51
DX: N39.0 Urinary tract infection, site not specified (principal); I10 Essential (primary) hypertension; Z88.2 Allergy status to sulfonamides; Z91.048 Other nonmedicinal substance allergy status
CPT/HCPCS: 87040 ×2; 87088; 85025; 87086; 80048; 36415; 80076; 83605; 87077; 87186; 81015; 83690; 84145; 74177; 99284; Q9967

== ENCOUNTER 2019-11-19 12:57 | Emergency (ER) | payer OTHER ==
--- NOTE | 2019-11-19 14:18 | ER ---
Nurse's Notes [facility] Name: Francie Cota Age: 79 yrs Sex: Female : 1940 Arrival Date: 11/19/2019 Time: 13:00 Bed 16 Private MD: Diagnosis: Left distal fibula fracture;Sprain of ankle Presentation: 11/19 13:01 Presenting complaint: Right ankle pain after mechanical fall from standing 1 week ago. hb Transition of care: patient was not received from another setting of care. Onset of symptoms was November 13, 2019. Risk Assessment: Do you want to hurt yourself or someone else? Patient reports no desire to harm self or others. Initial Sepsis Screen: Does the patient meet any 2 criteria? No. Patient's initial sepsis screen is negative. Does the patient have a suspected source of infection? No. Patient's initial sepsis screen is negative. Care prior to arrival: None. 13:01 Method Of Arrival: Ambulatory hb 13:01 Acuity: CHAD 4 hb Historical: - Allergies: 13:03 Sulfa (Sulfonamide Antibiotics); hb 13:03 Tape; hb - PMHx: 13:03 Broken skull to right frontral side; Depression; Hyperlipidemia; Hypothyroidism; hb - PSHx: 13:03 Hysterectomy; hb - Immunization history:: Adult Immunizations up to date. - Coronavirus screen:: The patient has NOT traveled to [place], [place], or [place] in the past 14 days. The patient has NOT had contact with known/suspected case of Coronavirus? Proceed with normal triage procedures. - Social history:: Smoking status: Patient denies any tobacco usage or history of. - Ebola Screening: : No symptoms or risks identified at this time. Screenin:16 Abuse screen: Denies threats or abuse. Denies injuries from another. Nutritional aj1 screening: No deficits noted. Tuberculosis screening: No symptoms or risk factors identified. 15:01 Fall Risk None identified. aj1 Assessment: 13:16 General: Appears in no apparent distress. comfortable, Behavior is calm, cooperative, aj1 appropriate for age. Pain: Complains of pain in right ankle. Neuro: Level of Consciousness is awake, alert, obeys commands, Oriented to person, place, time, situation. Cardiovascular: Patient's skin is warm and dry. Respiratory: Airway is patent Respiratory effort is even, unlabored, Respiratory pattern is regular, symmetrical. GI: No signs and/or symptoms were reported involving the gastrointestinal system. : No signs and/or symptoms were reported regarding the genitourinary system. EENT: No signs and/or symptoms were reported regarding the EENT system. Derm: No signs and/or symptoms reported regarding the dermatologic system. Skin is pink, warm \T\ dry. normal. Musculoskeletal: Range of motion: limited in right ankle. 14:15 Reassessment: Patient appears in no apparent distress at this time. No changes from aj1 previously documented assessment. Patient and/or family updated on plan of care and expected duration. Pain level reassessed. Patient is alert, oriented x 3, equal unlabored respirations, skin warm/dry/pink. Vital Signs: 13:03 BP 127 / 97; Pulse 81; Resp 16; Temp 97.2; Pulse Ox 96% on R/A; Weight 81.65 kg; Height hb 5 ft. 2 in. (157.48 cm); Pain 5/10; 15:00 BP 122 / 85; Pulse 78; Resp 18; Pulse Ox 97% on R/A; aj1 13:03 Body Mass Index 32.92 (81.65 kg, 157.48 cm) ED Course: 13:00 Patient arrived in ED. mr 13:02 Triage completed. hb 13:03 Arm band placed on. hb 13:04 Natanael Butler PA is PHCP. [facility] 13:04 Franko Greer MD is Attending Physician. [facility] 13:13 PHCP role handed off by Natanael Butler PA sn 13:13 Maral Roberts FNP-C is PHCP. snw 13:16 Emerald Sosa, ABY is Primary Nurse. aj1 13:16 Patient has correct armband on for positive identification. Bed in low position. Call aj1 light in reach. 13:16 No provider procedures requiring assistance completed. aj1 13:55 Ankle Right 3 View XRAY In Process Unspecified. EDMS 15:00 Patient did not have IV access during this emergency room visit. aj1 15:01 walking boot applied per orders. aj1 Administered Medications: No medications were administered Outcome: 14:17 Discharge ordered by . snw 15:01 Discharged to home ambulatory, via wheelchair. aj1 15:01 Condition: good 15:01 Discharge instructions given to patient, Instructed on discharge instructions, follow up and referral plans. medication usage, Demonstrated understanding of instructions, follow-up care, medications, Prescriptions given X 1. 15:02 Patient left the ED. aj1 Signatures: Dispatcher [employer] Emerald Constantino, ABY RN aj1 Maral Roberts, DAYCARE PROVIDER-C DAYCARE PROVIDER-Csnw Natanael Butler PA PA jmm Rivera, Mary mr Baxter, Heather, RN RN
--- NOTE | 2019-11-19 14:18 | EDPHYS ---
Physician Documentation [facility] Name: Francie Cota Age: 79 yrs Sex: Female : 1940 Arrival Date: 11/19/2019 Time: 13:00 Bed 16 Private MD: LAURA Physician Franko Greer HPI: 11/19 13:38 This 79 yrs old Female presents to ER via Ambulatory with complaints of Ankle snw Injury. 13:38 The patient presents with pain, that is acute. The complaints affect the right ankle. snw Onset: The symptoms/episode began/occurred suddenly, 1 week(s) ago, and became persistent. Context: The problem was sustained at home, resulted from a mis-step by the patient, on a carpet edge, The mechanism of injury is unknown. The patient can partially bear weight on the affected extremity. the patient is able to ambulate. Associated signs and symptoms: The patient has no apparent associated signs or symptoms. Severity of symptoms: At their worst the symptoms were moderate. It is unknown whether or not the patient has had similar symptoms in the past. The patient has not recently seen a physician. Historical: - Allergies: 13:03 Sulfa (Sulfonamide Antibiotics); hb 13:03 Tape; hb - PMHx: 13:03 Broken skull to right frontral side; Depression; Hyperlipidemia; Hypothyroidism; hb - PSHx: 13:03 Hysterectomy; hb - Immunization history:: Adult Immunizations up to date. - Coronavirus screen:: The patient has NOT traveled to [place], [place], or [place] in the past 14 days. The patient has NOT had contact with known/suspected case of Coronavirus? Proceed with normal triage procedures. - Social history:: Smoking status: Patient denies any tobacco usage or history of. - Ebola Screening: : No symptoms or risks identified at this time. ROS: 13:38 Constitutional: Negative for fever, chills, and weight loss, Eyes: Negative for injury, snw pain, redness, and discharge, ENT: Negative for injury, pain, and discharge, Neck: Negative for injury, pain, and swelling, Cardiovascular: Negative for chest pain, palpitations, and edema, Respiratory: Negative for shortness of breath, cough, wheezing, and pleuritic chest pain, Abdomen/GI: Negative for abdominal pain, nausea, vomiting, diarrhea, and constipation, Back: Negative for injury and pain, : Negative for injury, bleeding, discharge, and swelling, Skin: Negative for injury, rash, and discoloration, Neuro: Negative for headache, weakness, numbness, tingling, and seizure, Psych: Negative for depression, anxiety, suicide ideation, homicidal ideation, and hallucinations, Allergy/Immunology: Negative for hives, rash, and allergies. 13:38 MS/extremity: Positive for injury or acute deformity, tenderness, of the right ankle. Exam: 13:36 Constitutional: This is a well developed, well nourished patient who is awake, alert, snw and in no acute distress. Head/Face: Normocephalic, atraumatic. Eyes: Pupils equal round and reactive to light, extra-ocular motions intact. Lids and lashes normal. Conjunctiva and sclera are non-icteric and not injected. Cornea within normal limits. Periorbital areas with no swelling, redness, or edema. ENT: Nares patent. No nasal discharge, no septal abnormalities noted. Tympanic membranes are normal and external auditory canals are clear. Oropharynx with no redness, swelling, or masses, exudates, or evidence of obstruction, uvula midline. Mucous membranes moist. Neck: Trachea midline, no thyromegaly or masses palpated, and no cervical lymphadenopathy. Supple, full range of motion without nuchal rigidity, or vertebral point tenderness. No Meningismus. Chest/axilla: Normal chest wall appearance and motion. Nontender with no deformity. No lesions are appreciated. Cardiovascular: Regular rate and rhythm with a normal S1 and S2. No gallops, murmurs, or rubs. Normal PMI, no JVD. No pulse deficits. Respiratory: Lungs have equal breath sounds bilaterally, clear to auscultation and percussion. No rales, rhonchi or wheezes noted. No increased work of breathing, no retractions or nasal flaring. Abdomen/GI: Soft, non-tender, with normal bowel sounds. No distension or tympany. No guarding or rebound. No evidence of tenderness throughout. Back: No spinal tenderness. No costovertebral tenderness. Full range of motion. Neuro: Awake and alert, GCS 15, oriented to person, place, time, and situation. Cranial nerves II-XII grossly intact. Motor strength 5/5 in all extremities. Sensory grossly intact. Cerebellar exam normal. Normal gait. Psych: Awake, alert, with orientation to person, place and time. Behavior, mood, and affect are within normal limits. 13:36 Musculoskeletal/extremity: Extremities: grossly normal except: noted in the right ankle: tenderness, ecchymosis, ROM: no acute changes, Circulation is intact in all extremities. Sensation intact. 13:36 Skin: yellowed ecchymosis to right lateral ankle and foot. Vital Signs: 13:03 BP 127 / 97; Pulse 81; Resp 16; Temp 97.2; Pulse Ox 96% on R/A; Weight 81.65 kg; Height hb 5 ft. 2 in. (157.48 cm); Pain 5/10; 15:00 BP 122 / 85; Pulse 78; Resp 18; Pulse Ox 97% on R/A; aj1 13:03 Body Mass Index 32.92 (81.65 kg, 157.48 cm) hb MDM: 13:08 Patient medically screened. [facility] 14:19 Data reviewed: vital signs, nurses notes. Data interpreted: Pulse oximetry: on room air snw is 96 %. Interpretation: acceptable. Counseling: I had a detailed discussion with the patient and/or guardian regarding: the historical points, exam findings, and any diagnostic results supporting the discharge/admit diagnosis, radiology results, the need for outpatient follow up, to return to the emergency department if symptoms worsen or persist or if there are any questions or concerns that arise at home. Special discussion: I have referred the patient to see his PCP for further evaluation of high blood pressure. Based on the history and exam findings, there is no indication for further emergent testing or inpatient evaluation. I discussed with the patient/guardian the need to see the orthopedic surgeon for further evaluation of the symptoms. I discussed with the patient/guardian the need to see the primary care provider for further evaluation of the symptoms. 11/19 13:10 Order name: Ankle Right 3 View XRAY; Complete Time: 14:47 snw 11/19 14:15 Order name: Walking boot; Complete Time: 14:50 snw Administered Medications: No medications were administered Disposition: 11/19/19 14:17 Discharged to Home. Impression: Left distal fibula fracture, Sprain of ankle. - Condition is Stable. - Discharge Instructions: Ankle Sprain, RICE for Routine Care of Injuries, Cryotherapy, Heat Therapy, Walking Boot. - Prescriptions for Mobic 7.5 mg Oral Tablet - take 1 tablet by ORAL route once daily take with food; 20 tablet. - Medication Reconciliation Form, Thank You Letter, Antibiotic Education, Prescription Opioid Use form. - Follow up: Emergency Department; When: As needed; Reason: Worsening of condition. Follow up: Private Physician; When: 2 - 3 days; Reason: Recheck today's complaints, Continuance of care, Re-evaluation by your physician. Addendum: 11/21/2019 07:09 Co-signature as Attending Physician, Franko Gerer MD I agree with the assessment and c shaffer plan of care. Signatures: Dispatcher [employer] EDEmerald Zhang RN RN aj1 Franko Greer MD MD cha Therrien, Shelly, GABRIEL-C DATASTAGE CONSULTANT-Csnw Irene Yuen, RN RN Corrections: (The following items were deleted from the chart) 11/19 15:02 14:17 11/19/2019 14:17 Discharged to Home. Impression: Left distal fibula fracture; aj1 Sprain of ankle. Condition is Stable. Forms are Medication Reconciliation Form, Thank You Letter, Antibiotic Education, Prescription Opioid Use. Follow up: Emergency Department; When: As needed; Reason: Worsening of condition. Follow up: Private Physician; When: 2 - 3 days; Reason: Recheck today's complaints, Continuance of care, Re-evaluation by your physician. snw
--- NOTE | 2019-11-19 14:45 | RAD REPORT ---
EXAM DESCRIPTION: RAD - Ankle Right 3 View - 11/19/2019 1:54 pm CLINICAL HISTORY: PAIN COMPARISON: Ankle Left 3 View dated 01/12/2015 FINDINGS: Mild soft tissue swelling is seen about the ankle. Nondisplaced oblique lucency is suspect ed in the distal fibula likely representing a fracture. Mild osteoarthritis is present. IMPRESSION: Nondisplaced fracture of the distal fibula suspected.
[2019-11-19 15:10] VITALS: TEMP 97.2
[2019-11-19 15:11] VITALS: BP 122/85; O2SAT 97
== END 2019-11-19 15:02 | disposition home or self-care (01) ==
LOC: ER 12:57
DX: S82.832A Other fracture of upper and lower end of left fibula, initial encounter for closed fracture (principal); S93.402A Sprain of unspecified ligament of left ankle, initial encounter; W18.09XA Striking against other object with subsequent fall, initial encounter; Y93.89 Activity, other specified; Y92.009 Unspecified place in unspecified non-institutional (private) residence as the place of occurrence of the external cause; Z88.2 Allergy status to sulfonamides; Z91.048 Other nonmedicinal substance allergy status
CPT/HCPCS: 99283

== ENCOUNTER 2022-11-17 10:26 | Emergency (ER) | payer OTHER ==
--- OUTSIDE RECORDS SUMMARY | 2022-11-17 10:29 | XMS REPORT | Continuity of Care Document ---
:1940 Author Organization [facility] t Address [address] [place] [address] Care Team Providers Name Role Phone TIMSHERLY CarterLUCINA Primary Care Physician Unavailable ANU VILLANUEVA Attending Clinician Unavailable Anu Villanueva PA-C Attending Clinician Doctor Unassigned, [place] Attending Clinician Unavailable ANU VILLANUEVA Admitting Clinician Unavailable Payers Payer Name Policy Type Policy Number Effective Date Expiration Date S ource HUMANA 53 [id number] [facility] HUMANA CHOICE [id number] 2021 00:00:00 Problems Condition Condition Condition Status Onset Resolution Last Treating Co mments Source Name Details Category Date Date Treatment Clinician Date [id number] Lower Problem Common urinary Spirit tract - [facility] symptoms (LUTS) [facility] [id number] Incomplete Problem Co mmon emptying Spirit of bladder [facility] [id number] 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 stricture Medical type [place] [id number] Urinary Problem Commo n incontinen Spirit ce, - [facility] unspecifie [facility] [id number] Mixed Problem Common incontinen Spirit ce [facility] [id number] Recurrent Problem Com mon UTI [facility] [id number] Pyuria Problem Common [facility] Allergies, Adverse Reactions, Alerts Allergy Allergy Status Severity Reaction(s) Onset Inactive Treating Comm ents Source Name Type Date Date Clinician ADHESIVE DRUG Active Other-Cmnt Univ ers TAPE-GHULAM 7-25 ity of ICONES 00:00: [place] 00 Medical Branch PENICILL Drug Active Rash Univers INS Class 7-25 ity of 00:00: [place] 00 Medical Branch SULFA Drug Active Rash Univers (SULFONA Class 7-25 ity of MIDE 00:00: [place] ANTIBIOT 00 Medical ICS) Branch Adhesive Propensi Active Other - See Breaks U nivers Tape-Ghulam ty to comments 7-25 skin ity of icones adverse 00:00: [place] reaction 00 Medical s Branch Penicill Propensi Active Rash Univer s ins ty to 7-25 ity of adverse 00:00: [place] reaction Medical s Branch Sulfa Propensi Active Rash Univers (Sulfona ty to 7-25 ity of mide adverse 00:00: [place] Antibiot reaction 00 Medica l ics) s Branch Social History Social Habit Start Date Stop Date Quantity Comments Source History of [facility] - Tobacco Use [facility] Alcohol intake 2018-05-14 2018-05-14 Current University of 00:00:00 00:00:00 non-drinker of [facility] alcohol (finding) [place] Tobacco use and 2018-05-12 2018-05-12 Smokeless tobacco Un iversity of exposure 00:00:00 00:00:00 non-user [facility] Sex Assigned At [birth year] Universit y of 00:00:00 00:00:00 [facility] Smoking Status Start Date Stop Date Source Never Smoker [facility] - [facility] Medications Ordered Filled Start Stop Current Ordering Indication Dosage Frequency Signature Comments Components Source Medication Medication Date Date Medication? Clinician (SIG) Name Name Alfuzosin Alfuzosin 2021-10- No 1{table QD Alfuzosin HCl ER 10 HCl ER 10 12-16 t_at_be HCl ER 10 MG MG 00:00: 00:00 dtime} MG 00 :00 Clotrimazol Clotrimazol 2021-10- No 1{appli BID Clotrimazo e-Betametha e-Betametha 12-16 03-22 cation} le-Betamet sone 1-0.05 sone 1-0.05 00:00: 00:00 hasone % % 00 :00 1-0.05 % Nitrofurant Nitrofurant 2021-10- No QD Nitrofuran oin oin 12-16 toin Macrocrysta Macrocrysta 00:00: 00:00 Macrocryst l 50 MG l 50 MG 00 :00 al 50 MG Cephalexin Cephalexin 2021-10- No 1{capsu TID Cephalexin 250 MG 250 MG 11-30 le} 250 MG 00:00: 00:00 00 :00 levothyroxi Yes 50ug Take 50 Uni vers ne 50 mcg 7-26 mcg by ity of tablet 13:30: mouth [place] 25 every Medical morning. Branch escitalopra Yes 10mg Take 10 mg Univers m oxalate 7-26 by mouth ity of 10 mg 13:30: daily. [place] tablet 25 Medical Branch buPROPion Yes 150mg Take 150 Uni vers SR 150 mg 7-26 mg by ity of SR tablet 13:30: mouth [place] 25 daily. Medical Branch omeprazole Yes 40mg Take 40 mg U nivers 40 mg 7-26 by mouth ity of capsule 13:30: daily. [place] [address] Medical Branch diclofenac Yes 1{dose} Apply 1 U nivers sodium 7-26 Dose to ity of (DICLO GEL) 13:30: area(s) 4 [place] 1 % Kit 25 (four) Medical times Branch daily as needed. rosuvastati Yes 40mg Take 40 mg Univers n 40 mg 7-26 by mouth ity of tablet 13:30: at [place] [address] bedtime. Medical Branch temazepam Yes 15mg Take 15 mg Un stef (RESTORIL) 7-26 by mouth ity o f 15 mg 13:30: daily. [place] capsule 25 Medical Branch HYDROcodone Yes 2{tbl} Take 2 Un stef -acetaminop 7-26 tablets by it y of hen 7.5-325 13:30: mouth [place] mg per 25 every 6 Medical tablet (six) Branch hours as needed for Pain. diphenhydrA Yes 25mg Take 25 mg Univers MINE 7-26 by mouth ity of (BENADRYL 13:30: at [place] ALLERGY) 25 25 bedtime. Medi [place] mg tablet Branch cetirizine Yes 10mg Take 10 mg U nivers (ZYRTEC) 10 7-26 by mouth ity of mg tablet 13:30: daily. [place] [address] Medical Branch levothyroxi Yes 50ug Take 50 Uni vers ne 50 mcg 7-26 mcg by ity of tablet 13:30: mouth [place] 25 every Medical morning. Branch escitalopra Yes 10mg Take 10 mg Univers m oxalate 7-26 by mouth ity of 10 mg 13:30: daily. [place] tablet Medical Branch buPROPion Yes 150mg Take 150 Uni vers SR 150 mg 7-26 mg by ity of SR tablet 13:30: mouth [place] 25 daily. Medical Branch omeprazole Yes 40mg Take 40 mg U nivers 40 mg 7-26 by mouth ity of capsule 13:30: daily. [place] [address] Medical Branch diclofenac Yes 1{dose} Apply 1 U nivers sodium 7-26 Dose to ity of (DICLO GEL) 13:30: area(s) 4 [place] 1 % Kit 25 (four) Medical times Branch daily as needed. rosuvastati Yes 40mg Take 40 mg Univers n 40 mg 7-26 by mouth ity of tablet 13:30: at [place] [address] bedtime. Medical Branch temazepam Yes 15mg Take 15 mg Un stef (RESTORIL) 7-26 by mouth ity o f 15 mg 13:30: daily. [place] capsule [address] [place] [address] HYDROcodone Yes 2{tbl} Take 2 Un stef -acetaminop 7-26 tablets by it y of hen 7.5-325 13:30: mouth [place] mg per 25 every 6 Medical tablet (six) Branch hours as needed for Pain. diphenhydrA Yes 25mg Take 25 mg Univers MINE 7-26 by mouth ity of (BENADRYL 13:30: at [place] ALLERGY) 25 bedtime. Medi [place]sey mg tablet Branch cetirizine Yes 10mg Take 10 mg U nivers (ZYRTEC) 10 7-26 by mouth ity of mg tablet 13:30: daily. [place] [address] Medical [place] Temazepam Temazepam No Temazepam Levothyroxi Levothyroxi No Levothyrox ne Sodium ne Sodium ine Sodium Omeprazole Omeprazole No Omeprazole Rosuvastati Rosuvastati No Rosuvastat n Calcium n Calcium in Calcium Benadryl Benadryl No Benadryl [place] No [place] buPROPion buPROPion No buPROPion HCl HCl HCl Ezetimibe Ezetimibe No Ezetimibe Temazepam Temazepam No Temazepam Rosuvastati Rosuvastati No Rosuvastat n Calcium n Calcium in Calcium Omeprazole Omeprazole No Omeprazole buPROPion buPROPion No buPROPion HCl HCl HCl Ezetimibe Ezetimibe No Ezetimibe Benadryl Benadryl No Benadryl [place] No [place] Levothyroxi Levothyroxi No Levothyrox ne Sodium ne Sodium ine Sodium Omeprazole Omeprazole No Omeprazole Temazepam Temazepam No Temazepam [place] No [place] Benadryl Benadryl No Benadryl buPROPion buPROPion No buPROPion HCl HCl HCl Levothyroxi Levothyroxi No Levothyrox ne Sodium ne Sodium ine Sodium Ezetimibe Ezetimibe No Ezetimibe Rosuvastati Rosuvastati No Rosuvastat n Calcium n Calcium in Calcium Vital Signs Vital Name Observation Time Observation Value Comments Source height 2022-10-15 15:45:00 62 [in_i] [facility] weight 2022-10-15 15:45:00 198 [lb_av] [facility] temperature 2022-10-15 15:45:00 97.3 [degF] [facility] bmi 2022-10-15 15:45:00 36.21 kg/m2 [facility] oximetry 2022-10-15 15:45:00 96 % [facility] blood pressure 2022-10-15 15:45:00 140 mm[Hg] [facility] - systolic [facility] blood pressure 2022-10-15 15:45:00 86 mm[Hg] [facility] - diastolic [facility] height 2022-09-24 16:45:00 62 [in_i] Common S pirit [facility] weight 2022-09-24 16:45:00 197.4 [lb_av] Common [facility] temperature 2022-09-24 16:45:00 97.2 [degF] [facility] bmi 2022-09-24 16:45:00 36.1 kg/m2 [facility] oximetry 2022-09-24 16:45:00 97 % [facility] respiratory rate 2022-09-24 16:45:00 18 /min Comm on [facility] blood pressure 2022-09-24 16:45:00 139 mm[Hg] Common [facility] systolic [facility] blood pressure 2022-09-24 16:45:00 62 mm[Hg] Common [facility] diastolic [facility] Procedures Procedure Date / Time Performed Performing Clinician Sourc e XR HIPS 2 VW LEFT 2022-10-06 18:32:14 Anu Villanueva [facility] ASSIGNMENT OF BENEFITS 2022-10-06 17:45:53 Doctor Unassigned, No [facility] Encounters Start End Encounter Admission Attending Care Care Encounter Source Date/Time Date/Time Type Type Clinicians Facility Department ID 2022-09-24 Outpatient STLMLC STLMLC [id number] Common 16:00:03 15930 [facility] 2022-10-15 2022-10-15 OFFICE STLMLC STLMLC [id number] Co mmon 00:00:00 00:00:00 VISIT [facility] PT [facility] LEVEL 4 [facility] 2022-10-06 2022-10-06 Outpatient R ANU VILLANUEVA [facility] [id number] Univers 11:47:42 23:59:00 ity of [facility] 2022-10-06 2022-10-06 [facility] Anu Villanueva [facility] [id number] Univers 11:45:00 23:59:00 Encounter [place] [id number] ity [facility] [id number] [facility] [id number] [facility] 807 Branch 2022-10-062022-10-06 Orders Doctor FERDINAND [id number] Univers 00:00:00 00:00:00 Only Unassigned, JUNE [id number] ity of [place] [facility] [id number] Hammad as [id number] [place] [address] Branch 2022-09-30 2022-09-30 (TEL) STLMLC STLMLC [id number] Co mmon 00:00:00 00:00:00 [facility] 2022-09-24 2022-09-24 OFFICE STLC STLMLC [id number] Co mmon 00:00:00 00:00:00 VISIT [facility] it PT LEVEL 3 - [facility] Results This patient has no known results.
--- NOTE | 2022-11-17 11:31 | RAD REPORT ---
EXAM DESCRIPTION: RAD - Chest Single View - 11/17/2022 11:20 am CLINICAL HISTORY: cough, fever Chest pain. COMPARISON: Chest Pa And Lat (2 Views) dated 08/01/2021; Chest Pa And Lat (2 Views) dated 08/14/2018 ; Chest Pa And Lat (2 Views) dated 12/10/2016; Chest Single View dated 10/16/2016 FINDINGS: Portable technique limits examination quality. The lungs are grossly clear. The heart is normal in size. No displaced fractures.Moderate hiatal hanh ia. IMPRESSION: No acute intrathoracic process suspected.
[2022-11-17 12:32] LABS: SARS-COV-2 RT PCR POSITIVE (NEGATIVE)
--- NOTE | 2022-11-17 13:10 | ER ---
Nurse's Notes [facility] Name: Francie Cota Age: 82 yrs Sex: Female : 1940 Arrival Date: 11/17/2022 Time: 10:29 Bed 11 Private MD: Michael Finch Diagnosis: Coronavirus infection, unspecified Presentation: 11/17 10:47 Acuity: CHAD 3 jl7 11:17 Chief complaint: Patient states: nausea, body aches and cough since Thursday evening, kr3 pain in lungs since after choking on Chicken. Coronavirus screen: Vaccine status: Patient reports receiving the 2nd dose of the covid vaccine. Ebola Screen: Patient denies travel to an Ebola-affected area in the 21 days before illness onset. Initial Sepsis Screen: Does the patient meet any 2 criteria? No. Patient's initial sepsis screen is negative. Does the patient have a suspected source of infection? No. Patient's initial sepsis screen is negative. Risk Assessment: Do you want to hurt yourself or someone else? Patient reports no desire to harm self or others. Onset of symptoms was November 15, 2022. 11:17 Method Of Arrival: Wheelchair kr3 Triage Assessment: 11:21 General: Appears in no apparent distress. comfortable, Behavior is calm, cooperative, kr3 appropriate for age. Pain: Complains of pain in chest. Historical: - Allergies: 11:20 Sulfa (Sulfonamide Antibiotics); kr3 11:20 Tape; kr3 - PMHx: 11:20 Broken skull to right frontral side; Depression; Hyperlipidemia; Hypothyroidism; kr3 - Immunization history:: Adult Immunizations up to date. - Social history:: Smoking status: Patient denies any tobacco usage or history of. Screenin:24 Abuse screen: Denies threats or abuse. Nutritional screening: No deficits noted. ap3 Tuberculosis screening: No symptoms or risk factors identified. 13:16 [facility] ED Fall Risk Assessment (Adult) History of falling in the last 3 months, ap3 including since admission No falls in past 3 months (0 pts) Confusion or Disorientation No (0 pts) Intoxicated or Sedated No (0 pts) Impaired Gait Yes (1 pt) Mobility Assist Device Used No (0 pt) Altered Elimination No (0 pt) Score/Fall Risk Level 0 - 2 = Low Risk. Vital Signs: 11:17 BP 121 / 70; Pulse 80; Resp 18; Temp 98.8; Pulse Ox 98% on R/A; Weight 88 kg; Height 5 kr3 ft. 2 in. (157.48 cm); Pain 4/10; 11:17 Body Mass Index 35.48 (88.00 kg, 157.48 cm) kr3 ED Course: 10:29 Patient arrived in ED. as 10:29 Michael Finch is Private Physician. as 10: Natanael Butler PA is PHCP. [facility] 10:31 Ja Merino MD is Attending Physician. [facility] 10:49 Triage completed. jl7 11:14 Ani Hansen, RN is Primary Nurse. kr3 11:21 Arm band placed on right wrist. Patient placed in an exam room, on a stretcher. kr3 11:22 Chest Single View XRAY In Process Unspecified. EDMS 11:36 COVID-19/FLU A+B Sent. kr3 12:05 Primary Nurse role handed off by Ani Hansen, ABY ap3 12:05 Nayeli Dean, ABY is Primary Nurse. ap3 12:24 Patient has correct armband on for positive identification. Bed in low position. Call ap3 light in reach. Side rails up X 1. Adult w/ patient. Pulse ox on. NIBP on. Door closed. Noise minimized. 13:16 No provider procedures requiring assistance completed. Patient did not have IV access ap3 during this emergency room visit. Administered Medications: No medications were administered Medication: 12:24 VIS not applicable for this client. ap3 Outcome: 13:10 Discharge ordered by . [facility] 13:16 Discharged to home via wheelchair. ap3 13:16 Condition: good 13:16 Discharge instructions given to patient, family, Instructed on discharge instructions, follow up and referral plans. medication usage, Demonstrated understanding of instructions, follow-up care, medications, Prescriptions given X 2. 13:17 Patient left the ED. ap3 Signatures: Dispatcher [employer] EDMS Natanael Butler PA PA jmm Martinez, Amelia as Leal, Jahala, RN RN jl7 Nayeli Dean RN RN ap3 Ani Hansen RN RN kr3 Corrections: (The following items were deleted from the chart) 10:53 10:47 Chief complaint: Patient states: N/V/D x 1 week [place] [id number] 10:47 Coronavirus screen: Vaccine status: Patient reports receiving the 2nd dose of the [facility] covid vaccine. diarrhea, nausea, vomiting. Client presents with at least one sign or symptom that may indicate coronavirus-19. [facility] 10:47 Ebola Screen: No symptoms or risks identified at this time. [place] [address] 10:47 Initial Sepsis Screen: Does the patient meet any 2 criteria? No. Patient's [facility] initial sepsis screen is negative. Does the patient have a suspected source of infection? No. Patient's initial sepsis screen is negative. [facility] 10:47 Risk Assessment: Do you want to hurt yourself or someone else? Patient reports no [facility] desire to harm self or others. [facility] 10:47 Onset of symptoms was November 10, 2022 [place] [address] 10:47 Method Of Arrival: Wheelchair [place] [address] 10:47 BP 110 / 65; Pulse 84bpm; Resp 17bpm; Spontaneous; Pulse Ox 99% RA; Temp 97.4F [facility] Oral; 63.96 kg Reported; Height 5 ft. 7 in.; BMI: 22.0; Pain 0/10; [facility]
--- NOTE | 2022-11-17 13:10 | EDPHYS ---
Physician Documentation [facility] Name: Francie Cota Age: 82 yrs Sex: Female : 1940 Arrival Date: 11/17/2022 Time: 10:29 Bed 11 Private MD: Michael Finch ED Physician Ja Merino HPI: 11/17 11:04 This 82 yrs old Female presents to ER via Wheelchair with complaints of Flu Symptoms, jmm lung pain. 11:04 The patient has shortness of breath at rest. Onset: The symptoms/episode began/occurred jmm gradually, 4 day(s) ago. Duration: The symptoms are continuous, and are steadily getting worse. Is an 82-year-old female that presents emerged part with complaints of cough, pleuritic chest pain beginning this past . Daughter states that she has similar symptoms. Seen in urgent care and advised to go to the ED due to to concerns for chest pain.. Historical: - Allergies: 11:20 Sulfa (Sulfonamide Antibiotics); kr3 11:20 Tape; kr3 - PMHx: 11:20 Broken skull to right frontral side; Depression; Hyperlipidemia; Hypothyroidism; kr3 - Immunization history:: Adult Immunizations up to date. - Social history:: Smoking status: Patient denies any tobacco usage or history of. ROS: 11:04 Constitutional: Positive for body aches, chills. jmm 11:04 Cardiovascular: Positive for chest pain, with cough. 11:04 Respiratory: Positive for cough. 11:04 All other systems are negative. Exam: 11:04 Constitutional: This is a well developed, well nourished patient who is awake, alert, jmm and in no acute distress. Head/Face: atraumatic. Eyes: EOMI, no conjunctival erythema appreciated ENT: Moist Mucus Membranes Neck: Trachea midline, Supple Chest/axilla: Normal chest wall appearance and motion. Cardiovascular: Regular rate and rhythm. No edema appreciated Respiratory: Normal respirations, no respiratory distress appreciated Abdomen/GI: Non distended Back: Normal ROM Skin: General appearance color normal MS/ Extremity: Moves all extremities, no obvious deformities appreciated, no edema noted to the lower extremities Neuro: Awake and alert Psych: Behavior is normal, Mood is normal, Patient is cooperative and pleasant Vital Signs: 11:17 BP 121 / 70; Pulse 80; Resp 18; Temp 98.8; Pulse Ox 98% on R/A; Weight 88 kg; Height 5 kr3 ft. 2 in. (157.48 cm); Pain 4/10; 11:17 Body Mass Index 35.48 (88.00 kg, 157.48 cm) kr3 MDM: 11:04 Patient medically screened. [facility] 11:08 Data reviewed: vital signs, nurses notes. [facility] 13:08 Differential diagnosis: Pneumonia, coronavirus, influenza, viral syndrome. ED course: [facility] Patient is alert nontoxic in appearance in the ED. No signs respiratory distress. Chest x-ray was negative. Patient vies follow-up PCP and otherwise given strict return precautions. Patient understood agrees plan of care.. 11/17 11:04 Order name: COVID-19/FLU A+B; Complete Time: 12:35 [facility] 11/17 11:04 Order name: Chest Single View XRAY; Complete Time: 11:34 [facility] Administered Medications: No medications were administered Disposition: 16:25 Co-signature as Attending Physician, Ja Merino MD. rn Disposition Summary: 11/17/22 13:10 Discharge Ordered Location: Home [facility] Condition: Stable [facility] Diagnosis - Coronavirus infection, unspecified [facility] Followup: [facility] - With: Private Physician - When: 2 - 3 days - Reason: Recheck today's complaints, Continuance of care, Re-evaluation by your physician Discharge Instructions: - Discharge Summary Sheet [facility] - COVID-19 [facility] Forms: - Medication Reconciliation Form [facility] - Thank You Letter [facility] - Antibiotic Education [facility] - Prescription Opioid Use [facility] Prescriptions: - albuterol sulfate 90 mcg/actuation Inhalation HFA aerosol inhaler - inhale 2 puff by INHALATION route every 4 hours; 1 Pump; Refills: 0, Product [facility] Selection Permitted - Zithromax Z-Jerardo 250 mg Oral Tablet - take 1 tablet by ORAL route as directed for 5 days Day 1 - take two (2) tablets [facility] one time. Day 2, 3, 4 , 5 take one (1) tablet once daily.; 6 tablet; Refills: 0, Product Selection Permitted Signatures: Dispatcher [employer] EDMS Mickail, Natanael, PA PA jmm Merino, Ja, MD MD rn Tyrone, Ani, RN RN kr3
[2022-11-17 13:27] VITALS: BP 121/70; TEMP 98.8; O2SAT 98
== END 2022-11-17 13:17 | disposition home or self-care (01) ==
LOC: ER 10:26
DX: U07.1 COVID-19 (principal); Z88.2 Allergy status to sulfonamides; Z91.048 Other nonmedicinal substance allergy status
CPT/HCPCS: 0240U; 71045; 99284

== ENCOUNTER 2023-08-24 10:08 | Emergency (ER) | payer OTHER ==
--- OUTSIDE RECORDS SUMMARY | 2023-08-24 10:11 | XMS REPORT | Continuity of Care Document ---
:1940 Author Organization [facility] t Address [address] [facility] [address] [place] [address] Care Team Providers Name Role Phone MENDEZ DUMONT Primary Care Physician Unavailable Ashok Fontana Attending Clinician Unavailable Eleno Sheridan Attending Clinician Unavailable SONU BORRERO Attending Clinician Unavailable MARIAA GALVEZ Attending Clinician Unavailable ANU CULVER Attending Clinician Unavailable Anu Culver PA-C Attending Clinician Doctor Unassigned, [place] Attending Clinician Unavailable ANU CULVER Admitting Clinician Unavailable Payers Payer Name Policy Type Policy Number Effective Date Expiration Date S martin HUMANA 53 [id number] [facility] HUMANA CHOICE [id number] 2021 00:00:00 Problems Condition Condition Condition Status Onset Resolution Last Treating Co mments Source Name Details Category Date Date Treatment Clinician Date [id number] Lower Problem Common urinary [facility] tract - [facility] symptoms [facility] ([facility] [id number] Incomplete Problem Co mmon emptying Spirit of bladder - [facility] [id number] 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 [facility] [id number] 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, - [facility] unspecifie [facility] stricture Medical type Center [id number] Urinary Problem Commo n incontinen Spirit ce, - [facility] unspecifie [facility] [id number] Mixed Problem Common incontinen Spirit ce - [facility] [id number] Recurrent Problem Com mon UTI Spirit - [facility] [id number] Pyuria Problem [facility] Allergies, Adverse Reactions, Alerts Allergy Allergy Status [...] Start Date Stop Date Quantity Comments Source Sexual orientation [facility] History of Tobacco [facility] - Use [facility] Alcohol intake 2018-05-14 2018-05-14 Current University of 00:00:00 00:00:00 non-drinker of [facility] alcohol Branch (finding) Tobacco use and 2018-05-12 2018-05-12 Smokeless Universit y of exposure 00:00:00 00:00:00 tobacco non-user [facility] dical [place] Sex Assigned At [birth year] [employer] 00:00:00 00:00:00 Hospital Smoking Status Start Date Stop Date Source Tobacco smoking consumption [facility] unknown Never Smoker [facility] Medications Ordered Filled Start Stop Current Ordering Indication Dosage Frequency Signature Comments Components Source Medication Medication Date Date Medication? Clinician (SIG) Name Name Alfuzosin Alfuzosin 2021-10- No 1{table QD Alfuzosin HCl ER 10 HCl ER 10 12-16 t_at_be HCl ER 10 MG MG 00:00: 00:00 dtime} MG 00 :00 Clotrimazol Clotrimazol 2021-10- No 1{appli BID Clotrimazo e-Betametha e-Betametha 12-16 cation} le-Betamet sone 1-0.05 sone 1-0.05 00:00: 00:00 hasone % % 00 :00 1-0.05 % Nitrofurant Nitrofurant 2021-10- No QD Nitrofuran oin oin 12-16 toin Macrocrysta Macrocrysta 00:00: 00:00 Macrocryst l 50 MG l 50 MG 00 :00 al 50 MG Cephalexin Cephalexin 2021-10- No 1{capsu TID Cephalexin 250 MG 250 MG 11-30 le} 250 MG 00:00: 00:00 00 :00 diclofenac Yes 1{dose} Apply 1 U nivers sodium 7-26 Dose to ity of (DICLO GEL) 13:30: area(s) 4 [place] 1 % Kit 25 (four) Medical times Branch daily as needed. rosuvastati Yes 40mg Take 40 mg Univers n 40 mg 7-26 by mouth ity of tablet 13:30: at [place] [address] bedtime. Medical Branch temazepam Yes 15mg Take 15 mg Un stef (RESTORIL) 7-26 by mouth ity o f 15 mg 13:30: daily. [place] capsule Medical Branch HYDROcodone Yes 2{tbl} Take 2 Un stef -acetaminop 7-26 tablets by it y of hen 7.5-325 13:30: mouth [place] mg per 25 every 6 Medical tablet (six) Branch hours as needed for Pain. diphenhydrA Yes 25mg Take 25 mg Univers MINE 7-26 by mouth ity of (BENADRYL 13:30: at [place] ALLERGY) [facility] bedtime. Medi kinsey mg tablet Branch cetirizine Yes 10mg Take 10 mg U nivers (ZYRTEC) 10 7-26 by mouth ity of mg tablet 13:30: daily. [place] [address] Medical Branch levothyroxi Yes 50ug Take 50 Uni vers ne 50 mcg 7-26 mcg by ity of tablet 13:30: mouth [place] [address] every Medical morning. Branch escitalopra Yes 10mg Take 10 mg Univers m oxalate 7- by mouth ity of 10 mg 13:30: daily. [place] tablet Medical Branch buPROPion Yes 150mg Take 150 Uni vers SR 150 mg 7-26 mg by ity of SR tablet 13:30: mouth [place] 25 daily. Medical Branch omeprazole Yes 40mg Take 40 mg U nivers 40 mg 7-26 by mouth ity of capsule 13:30: daily. [place] [address] Medical Branch diclofenac Yes 1{dose} Apply 1 U nivers sodium 7-26 Dose to ity of (DICLO GEL) 13:30: area(s) 4 [place] 1 % Kit 25 (four) Medical times Branch daily as needed. rosuvastati Yes 40mg Take 40 mg Univers n 40 mg 7-26 by mouth ity of tablet 13:30: at [place] [address] bedtime. Medical Branch temazepam Yes 15mg Take 15 mg Un stef (RESTORIL) 7-26 by mouth ity o f 15 mg 13:30: daily. [place] capsule Medical Branch HYDROcodone Yes 2{tbl} Take 2 Un stef -acetaminop 7-26 tablets by it y of hen 7.5-325 13:30: mouth [place] mg per 25 every 6 Medical tablet (six) Branch hours as needed for Pain. diphenhydrA Yes 25mg Take 25 mg Univers MINE - by mouth ity of (BENADRYL 13:30: at [place] ALLERGY) 25 bedtime. Medi kinsey mg tablet Branch cetirizine Yes 10mg Take 10 mg U nivers (ZYRTEC) 10 7-26 by mouth ity of mg tablet 13:30: daily. [place] [address] Medical Branch levothyroxi Yes 50ug Take 50 Uni vers ne 50 mcg 7-26 mcg by ity of tablet 13:30: mouth [place] [address] every Medical morning. Branch escitalopra Yes 10mg Take 10 mg Univers m oxalate 7-26 by mouth ity of 10 mg 13:30: daily. [place] tablet Medical Branch buPROPion Yes 150mg Take 150 Uni vers SR 150 mg 7-26 mg by ity of SR tablet 13:30: mouth [place] 25 daily. Medical Branch omeprazole 2018-0 Yes 40mg Take 40 mg U nivers 40 mg 7-26 by mouth ity of capsule 13:30: daily. [address] Temazepam Temazepam No Temazepam Levothyroxi Levothyroxi No Levothyrox ne Sodium ne Sodium ine Sodium Omeprazole Omeprazole No Omeprazole Rosuvastati Rosuvastati No Rosuvastat n Calcium n Calcium in Calcium Benadryl Benadryl No Benadryl [place] buPROPion buPROPion No buPROPion HCl HCl HCl Ezetimibe Ezetimibe No Ezetimibe Temazepam Temazepam No Temazepam Rosuvastati Rosuvastati No Rosuvastat n Calcium n Calcium in Calcium Omeprazole Omeprazole No Omeprazole buPROPion buPROPion No buPROPion HCl HCl HCl Ezetimibe Ezetimibe No Ezetimibe Benadryl Benadryl No Benadryl [place] No [place] Levothyroxi Levothyroxi No Levothyrox ne Sodium ne Sodium ine Sodium Omeprazole Omeprazole No Omeprazole Temazepam Temazepam No Temazepam [place] No [place] Benadryl Benadryl No Benadryl buPROPion buPROPion No buPROPion HCl HCl HCl Levothyroxi Levothyroxi No Levothyrox ne Sodium ne Sodium ine Sodium Ezetimibe Ezetimibe No Ezetimibe Rosuvastati Rosuvastati No Rosuvastat n Calcium n Calcium in Calcium Vital Signs Vital Name Observation Time Observation Value Comments Source height 2022-10-15 15:45:00 62 [in_i] [facility] weight 2022-10-15 15:45:00 198 [lb_av] [facility] temperature 2022-10-15 15:45:00 97.3 [degF] [facility] bmi 2022-10-15 15:45:00 36.21 kg/m2 [facility] oximetry 2022-10-15 15:45:00 96 % [facility] blood pressure 2022-10-15 15:45:00 140 mm[Hg] [facility] - systolic [facility] blood pressure 2022-10-15 15:45:00 86 mm[Hg] [facility] - diastolic [facility] height 2022-09-24 16:45:00 62 [in_i] [facility] weight 2022-09-24 16:45:00 197.4 [lb_av] [facility] temperature 2022-09-24 16:45:00 97.2 [degF] [facility] bmi 2022-09-24 16:45:00 36.1 kg/m2 [facility] oximetry 2022-09-24 16:45:00 97 % [facility] respiratory rate 2022-09-24 16:45:00 18 /min Comm on [facility] blood pressure 2022-09-24 16:45:00 139 mm[Hg] [facility] - systolic [facility] blood pressure 2022-09-24 16:45:00 62 mm[Hg] [facility] diastolic [facility] Procedures Procedure Date / Time Performed Performing Clinician [facility] e MRI LUMBAR SPINE WO 2023-04-28 12:45:00 Sonu Borrero [facility] CONTRAST Martinez XR HIPS 2 VW LEFT 2022-10-06 18:32:14 Anu Culver [facility] ASSIGNMENT OF BENEFITS 2022-10-06 17:45:53 Doctor Unassigned, No [facility] Plan of Care Planned Activity Planned Date Details Comments Source Future Scheduled 2023-08-13 INFLUENZA VACCINE (#1) M [facility] Test 18:17:24 [code = INFLUENZA VACCINE (#1)] Future Scheduled 2023-08-13 COVID-19 VACCINE (#1) Me [facility] Test 18:17:24 [code = COVID-19 VACCINE (#1)] Future Scheduled 2023-08-13 SHINGLES VACCINES (1 Met [facility] Test 18:17:24 of 2) [code = SHINGLES VACCINES (1 of 2)] Future Scheduled 2023-08-13 65+ PNEUMOCOCCAL [facility] Test 18:17:24 VACCINE (1 - PCV) [code = 65+ PNEUMOCOCCAL VACCINE (1 - PCV)] Encounters Start End Encounter Admission Attending Care Care Encounter Source Date/Time Date/Time Type Type Clinicians Facility Department ID 2023-03-23 Outpatient Ashok Fontana [facility] [id number] - Common 14:39:01 [id number] [facility] 2023-03-20 Outpatient Arvin [facility] [id number] Common 11:41:01 [facility] [id number] [facility] 2022-12-04 Outpatient Arvin [facility] [id number] Common 10:49:02 [facility] [id number] [facility] 2022-09-24 Outpatient STNATHALIELC ST[facility] [id number] Common 16:00:03 [id number] [facility] 2023-04-28 2023-04-28 Outpatient GISSELL, [facility] [id number] [place] 00:00:00 00:00:00 SONU [address] 2023-04-22 2023-04-22 Transcribe Gissell [id number] Methodi 00:00:00 00:00:00 Orders Sonu [id number] [place] [id number] Hospit [id number] l .8 2022-12-10 2022-12-10 Outpatient GAYLA GALVEZ [id number] Gayla 14:30:00 14:30:00 MARIAA gilliland 2022-10-15 2022-10-15 [facility] [id number] Co mmon 00:00:00 00:00:00 VISIT [facility] LEVEL 4 [facility] 2022-10-06 2022-10-06 Outpatient ANU WEBBER [facility] [id number] Univers 11:47:42 23:59:00 ity [facility] 2022-10-06 2022-10-06 [facility] Anu Culver [facility] [id number] Univers 11:45:00 23:59:00 Encounter BENJAMÍN [id number] ity [facility] [id number] [facility] [id number] [facility] 807 Branch 2022-10-06 2022-10-06 Orders Doctor FERDINAND [id number] Univers 00:00:00 00:00:00 Only Unassigned, JUNE [id number] ity of [place] [facility] [id number] Hammad [id number] [facility] 009 Branch 2022-09-30 2022-09-30 (TEL) [facility] [id number] Co mmon 00:00:00 00:00:00 [facility] 2022-09-24 2022-09-24 [facility] [id number] Co mmon 00:00:00 00:00:00 VISIT [facility] PT LEVEL 3 [facility] Results This patient has no known results.
[2023-08-24 10:46] LABS: Absolute Lymphocytes (CBC) 2.9 K/uL (0.7-4.9); Lymphocytes % 34.7 % (15.3-44.8); MCV 78.7 fL (80-100); MPV 9.2 fL (7.6-11.3); Platelets 241 thou/uL (152-406); RBC Red Blood Cell Count 4.07 M/uL (3.86-4.86)
[2023-08-24 10:50] LABS: Specific Gravity 1.016 (1.005-1.030); Transitional Epithelial <5 /HPF (None Seen); Urine Bacteria >50 /HPF (<20); Urine Bilirubin NEGATIVE (Negative); Urine Blood Negative (Negative); Urine Clarity Extremely Turbid (Clear); Urine Color Yellow (Yellow); Urine Glucose NEGATIVE (Negative); Urine Mucus 1+ /HPF (None Seen); Urine Protein TRACE (Negative); Urine Urobilinogen Normal (Normal); Urine pH 5.5 (5.0-7.0)
[2023-08-24 11:02] LABS: Bilirubin Total 0.4 mg/dL (0.2-1.0); Potassium 4.1 mEq/L (3.5-5.1); Protein, Total 7.6 g/dL (6.4-8.2); Troponin High Sensitivity 7.2 pg/mL (<58.9)
--- NOTE | 2023-08-24 11:29 | RAD REPORT ---
EXAM DESCRIPTION: RAD - Chest Pa And Lat (2 Views) - 08/24/2023 11:18 am CLINICAL HISTORY: left flank/LUQ pain Chest pain. COMPARISON: Chest Single View dated 11/17/2022; Chest Pa And Lat (2 Views) dated 08/01/2021; Chest Pa And Lat (2 Views) dated 08/14/2018; Chest Pa And Lat (2 Views) dated 12/10/2016; Abdomen Pelvis W C ontrast dated 08/24/2023 FINDINGS: The lungs are clear. The heart is normal in size. No displaced fractures. Moderate hiatal hernia. IMPRESSION: Moderate hiatal hernia.
--- NOTE | 2023-08-24 12:02 | RAD REPORT ---
EXAM DESCRIPTION: CTAbdomen Pelvis W Contrast - 08/24/2023 11:11 am CLINICAL HISTORY: Abdominal pain. LUQ abd pain, flank pain COMPARISON: Abdomen Pelvis W Contrast dated 07/28/2019 TECHNIQUE: Biphasic CT imaging of the abdomen and pelvis was performed with 100 ml non-ionic IV cont rast. All CT scans are performed using dose optimization technique as appropriate and may include automated exposure control or mA/KV adjustment according to patient size. FINDINGS: The lung bases are clear.There is a moderate axial hiatal hernia. The liver demonstrates mild fatty infiltration. Spleen, pancreas, adrenal glands and kidneys are with in normal limits. Small gallstone seen in the gallbladder. No bowel obstruction, free air, free fluid or abscess. Mild sigmoid diverticulosis coli without diver ticulitis. The appendix is normal. No evidence of significant lymphadenopathy. Lower lumbar degenerative changes with hardware in place. IMPRESSION: No acute intra-abdominal or pelvic finding. Cholelithiasis. Moderate hiatal hernia. Lower lumbar degenerative changes with hardware in place.
--- NOTE | 2023-08-24 12:26 | EDPHYS ---
Physician Documentation [facility] Name: Francie Cota Age: 82 yrs Sex: Female : 1940 Arrival Date: 08/24/2023 Time: 10:08 Bed 8 Private MD: ED Physician Ja Merino HPI: 08/24 10:22 This 82 yrs old Female presents to ER via Unassigned with complaints of Under rib pain, rn Low Back Pain. 10:22 The patient presents with abdominal pain in the left upper quadrant. Onset: The rn symptoms/episode began/occurred 3 week(s) ago. The symptoms do not radiate. Associated signs and symptoms: Pertinent negatives: nausea and vomiting, anorexia, blood in stools, chest pain, constipation, diarrhea, dysuria, fever, headache, hematuria, nausea, palpitations, shortness of breath, vaginal discharge, vomiting, vomiting blood. The symptoms are described as dull. Modifying factors: The symptoms are alleviated by nothing, the symptoms are aggravated by nothing. Severity of pain: At its worst the pain was moderate in the emergency department the pain is unchanged. The patient has not experienced similar symptoms in the past. Patient reports 3 weeks of left upper quadrant and left back pain. No injury. No fall. No rash. No fever. No vomiting or diarrhea. No chest pain or shortness of breath. No cough. Not any worse with deep inspiration. No history of DVT or PE.. 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 - Family history:: not pertinent. - Social history:: Smoking status: Patient denies any tobacco usage or history of. - Hospitalizations: : No recent hospitalization is reported. ROS: 10:22 Constitutional: Negative for fever, chills, and weight loss, Eyes: Negative for injury, rn pain, redness, and discharge, Cardiovascular: Positive for left-sided chest pain Respiratory: Negative for shortness of breath, cough, wheezing, and pleuritic chest pain, Abdomen/GI: Positive for left upper quadrant abdominal pain Back: Positive for left back pain MS/Extremity: Negative for injury and deformity, Skin: Negative for injury, rash, and discoloration, Neuro: Negative for headache, weakness, numbness, tingling, and seizure, Exam: 10:22 Constitutional: This is a well developed, well nourished patient who is awake, alert, rn and in no acute distress. Ambulatory to the room without difficulty or assistance Head/Face: Normocephalic, atraumatic. Cardiovascular: Regular rate and rhythm. No pulse deficits. Respiratory: No increased work of breathing, no retractions or nasal flaring. Abdomen/GI: Soft, tender left upper quadrant at the costal margin. No rib tenderness. No rash or lesions. No distention. Skin: Warm, dry MS/ Extremity: Pulses equal, no cyanosis. Neuro: Awake and alert, GCS 15 15:53 ECG was reviewed by the Attending Physician. rn Vital Signs: 10:21 BP 138 / 100; Pulse 90; Resp 16; Temp 98.4; Pulse Ox 98% on R/A; iw 11:36 BP 140 / 86; Pulse 75; Resp 18; Pulse Ox 97% on R/A; mb9 12:24 BP 148 / 92; Pulse 72; Resp 16; Pulse Ox 99% on R/A; mb9 MDM: 10:17 Patient medically screened. rn 12:23 Differential diagnosis: bowel obstruction, cholecystitis, Cholelithiasis, rn diverticulitis, gastritis, gastroesophageal reflux disease, non-specific abd pain, pancreatitis, Peptic Ulcer Disease, Perf. Duodenal Ulcer, Perf. Gastric Ulcer, Ureterolithiasis, urinary tract infection. Data reviewed: vital signs, nurses notes, lab test result(s), radiologic studies, CT scan, and as a result, I will discharge patient. Independent interpretation of the following test(s) in the Emergency Department X-Ray: My interpretation is Chest x-ray images negative for pneumonia or pulmonary edema per my interpretation. Counseling: I had a detailed discussion with the patient and/or guardian regarding the historical points, exam findings, and any diagnostic results supporting the discharge/admit diagnosis, lab results, radiology results, the need for outpatient follow up, to return to the emergency department if symptoms worsen or persist or if there are any questions or concerns that arise at home. Special discussion: I discussed with the patient/guardian in detail that at this point there is no indication for admission to the hospital. It is understood, however, that if the symptoms persist or worsen the patient needs to return immediately for re-evaluation. Based on the history and exam findings, there is no indication for further emergent testing or inpatient evaluation. 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 ED course: I have personally reviewed all of the results, including but not limited to blood tests and imaging deemed necessary to safely discharge this patient at this time. All results given to and printed out for patient. I personally went over all the results with the patient and answered all questions. Patient will follow-up with PCP and or specialist as discussed. Return precautions given and understood.. 08/24 10:22 Order name: CBC with Diff; Complete Time: 11:40 rn 08/24 10:22 Order name: CMP; Complete Time: 11:40 rn 08/24 10:22 Order name: Lipase; Complete Time: 11:40 rn 08/24 10:22 Order name: Urinalysis w/ reflexes; Complete Time: 11:40 rn 08/24 10:22 Order name: Troponin High Sensitivity; Complete Time: 11:40 rn 08/24 10:53 Order name: Urine Culture EDWY 08/24 10:22 Order name: CT Abd/Pelvis - IV Contrast Only; Complete Time: 12:06 rn 08/24 10:22 Order name: XRAY Chest Pa And Lat (2 Views); Complete Time: 11:40 rn 08/24 10:22 Order name: IV Saline Lock; Complete Time: 10:41 rn 08/24 10:22 Order name: Labs collected and sent; Complete Time: 10:41 rn 08/24 10:22 Order name: EKG - Nurse/Tech; Complete Time: 10:41 rn EC:53 Rate is 87 beats/min. Rhythm is regular. QRS [place] is Normal. ND interval is normal. QRS rn interval is normal. QT interval is normal. No Q waves. T waves are Normal. No ST changes noted. Clinical impression: NSR w/ Non-specific ST/T Changes. Interpreted by me. Reviewed by me. Administered Medications: No medications were administered Disposition Summary: 08/24/23 12:26 Discharge Ordered Notes: Location: Home rn Problem: an ongoing problem rn Symptoms: have improved rn Condition: Stable rn Diagnosis - Abdominal pain, unspecified rn - Hiatal Hernia rn - Other cholelithiasis without obstruction rn Followup: rn - With: Private Physician - When: As needed - Reason: Recheck today's complaints, Re-evaluation by your physician Discharge Instructions: - Discharge Summary Sheet rn - Abdominal Pain, Adult rn - Hiatal Hernia rn - Urinary Tract Infection, Adult rn - Cholelithiasis rn Forms: - Medication Reconciliation Form rn - Thank You Letter rn - 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
--- NOTE | 2023-08-24 12:26 | ER ---
Nurse's Notes [facility] Name: Francie Cota Age: 82 yrs Sex: Female : 1940 Arrival Date: 08/24/2023 Time: 10:08 Bed 8 Private MD: Diagnosis: Abdominal pain, unspecified;Hiatal Hernia;Other cholelithiasis without obstruction Presentation: 08/24 10:21 Chief complaint: Patient states: 3 weeks mid back pain, radiates to mid abdomen, worse iw last night. Coronavirus screen: At this time, the client does not indicate any symptoms associated with coronavirus-19. Ebola Screen: Patient negative for fever greater than or equal to 101.5 degrees Fahrenheit, and additional compatible Ebola Virus Disease symptoms Patient denies exposure to infectious person. Patient denies travel to an Ebola-affected area in the 21 days before illness onset. No symptoms or risks identified at this time. Initial Sepsis Screen: Does the patient meet any 2 criteria? No. Patient's initial sepsis screen is negative. Does the patient have a suspected source of infection? No. Patient's initial sepsis screen is negative. Risk Assessment: Do you want to hurt yourself or someone else? Patient reports no desire to harm self or others. Onset of symptoms was October 07, 2023. 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 - Family history:: not pertinent. - Social history:: Smoking status: Patient denies any tobacco usage or history of. - Hospitalizations: : No recent hospitalization is reported. Screenin:24 [facility] ED Fall Risk Assessment (Adult) History of falling in the last 3 months, mb9 including since admission No falls in past 3 months (0 pts) Confusion or Disorientation No (0 pts) Intoxicated or Sedated No (0 pts) Impaired Gait No (0 pts) Mobility Assist Device Used No (0 pt) Altered Elimination No (0 pt) Score/Fall Risk Level 0 - 2 = Low Risk Oriented to surroundings, Maintained a safe environment, Educated pt \T\ family on fall prevention, incl call for assistance when getting out of bed. Abuse screen: Denies threats or abuse. Nutritional screening: No deficits noted. Tuberculosis screening: No symptoms or risk factors identified. Assessment: 10:23 General: Appears in no apparent distress. Behavior is calm, cooperative, appropriate mb9 for age. Pain: Complains of pain in back Pain radiates to LLQ Quality of pain is described as aching, dull, Pain began 2-3 weeks ago Is intermittent. Neuro: Singh Agitation-Sedation Scale (RASS): 0 - Alert and Calm Level of Consciousness is awake, alert, obeys commands, Oriented to person, place, time, situation, Appropriate for age. Cardiovascular: Heart tones S1 S2 present Patient's skin is warm and dry. Respiratory: Airway is patent Respiratory effort is even, unlabored, Respiratory pattern is regular, symmetrical, Breath sounds are clear bilaterally. GI: Abdomen is round non-distended, Bowel sounds present X 4 quads. Abd is soft Abdomen is tender to palpation in left upper quadrant and left lower quadrant Patient currently denies diarrhea, nausea, vomiting. : Denies burning with urination. EENT: No signs and/or symptoms were reported regarding the EENT system. Derm: Skin is pink, warm \T\ dry. Musculoskeletal: Range of motion: intact in all extremities. 11:37 Reassessment: No changes from previously documented assessment. Patient and/or family mb9 updated on plan of care and expected duration. Pain level reassessed. Patient is alert, oriented x 3, equal unlabored respirations, skin warm/dry/pink. 12:24 Reassessment: Patient and/or family updated on plan of care and expected duration. Pain mb9 level reassessed. Patient is alert, oriented x 3, equal unlabored respirations, skin warm/dry/pink. Patient states feeling better. Patient states symptoms have improved. Vital Signs: 10:21 BP 138 / 100; Pulse 90; Resp 16; Temp 98.4; Pulse Ox 98% on R/A; iw 11:36 BP 140 / 86; Pulse 75; Resp 18; Pulse Ox 97% on R/A; mb9 12:24 BP 148 / 92; Pulse 72; Resp 16; Pulse Ox 99% on R/A; mb9 ED Course: 10:11 Patient arrived in ED. im 10:16 Breneman, Adia, RN is Primary Nurse. mb9 10:17 Ja Merino MD is Attending Physician. rn 10:22 Triage completed. iw 10:22 Arm band placed on. iw 10:24 Placed in gown. Bed in low position. Call light in reach. Side rails up X 1. Client mb9 placed on continuous cardiac and pulse oximetry monitoring. NIBP monitoring applied. 10:41 EKG done, by ED staff, reviewed by Ja Merino MD. Inserted saline lock: 22 gauge in mb9 right forearm, using aseptic technique. 10:41 Troponin High Sensitivity Sent. mb9 10:41 CBC with Diff Sent. mb9 10:41 CMP Sent. mb9 10:42 Lipase Sent. mb9 10:42 Urinalysis w/ reflexes Sent. mb9 11:13 CT Abd/Pelvis - IV Contrast Only In Process Unspecified. EDMS 11:20 XRAY Chest Pa And Lat (2 Views) In Process Unspecified. EDMS 12:24 No provider procedures requiring assistance completed. IV discontinued, intact, mb9 bleeding controlled, No redness/swelling at site. Pressure dressing applied. Administered Medications: No medications were administered Medication: 10:25 VIS not applicable for this client. mb9 Outcome: 12:26 Discharge ordered by . rn 12:34 Discharged to home ambulatory, with family, mb9 12:34 Condition: stable 12:34 Discharge instructions given to patient, family, Instructed on discharge instructions, follow up and referral plans. Demonstrated understanding of instructions, follow-up care, medications, Prescriptions given X 1, 12:35 Patient left the ED. mb9 Addendum: 08/27/2023 10:53 Addendum: Culture Results: Positive urine culture. No further action required. Other: j l7 highly sensitive bacteria, per YAHAIRA Pedroza. Signatures: Dispatcher [employer] EDMS Brea Anderson RN RN iw Ja Merino MD MD rn Leal, Jahala, RN RN jl7 Breneman, Mary Beth, RN RN [id number] Guillermina Ramírez
[2023-08-24 12:43] VITALS: TEMP 98.4
[2023-08-24 12:55] VITALS: BP 148/92; O2SAT 99
--- NOTE | 2023-08-29 14:33 | EKG ---
Test Date: 2023-08-24 Test Time: 10:30:29 Lamination Technician: MB MEASUREMENT RESULTS: Intervals: Rate: 87 OH: 164 QRSD: 132 QT: 390 QTc: 469 [place]: P: 42 OH: 164 QRS: 61 T: 25 INTERPRETIVE STATEMENTS: Normal sinus rhythm Right bundle branch block Abnormal ECG Compared to ECG 10/16/2016 16:02:22 Sinus tachycardia no longer present T-wave abnormality no longer present Possible ischemia no longer present Electronically Signed On 08-29-23 14:17:56 COMPETITIVE INTELLIGENCE ANALYST by Pineda Steen
== END 2023-08-24 12:35 | disposition home or self-care (01) ==
LOC: ER 10:08
DX: K44.9 Diaphragmatic hernia without obstruction or gangrene (principal); K80.80 Other cholelithiasis without obstruction; Z88.2 Allergy status to sulfonamides; Z91.048 Other nonmedicinal substance allergy status
CPT/HCPCS: 93005; 87088; 85025; 81001; 87086; 36415; 87077; 87186; 84484; 83690; 80053; 74177; 71046; 99284; Q9967

== ENCOUNTER 2023-12-23 17:32 | Inpatient (IN) | payer OTHER ==
--- NOTE | 2023-12-23 19:12 | RAD REPORT ---
EXAM DESCRIPTION: [place] Single View12/23/2023 6:11 pm CLINICAL HISTORY: Cough COMPARISON: 2022 FINDINGS: Mild right basilar opacity. The left lung appears clear of acute infiltrate. The heart is normal size IMPRESSION: Mild right basilar opacity may be a mild pneumonia
[2023-12-23 20:19] LABS: Specific Gravity 1.021 (1.005-1.030); Sqamous Epithelial <5 /HPF (None Seen); Urine Bacteria >50 /HPF (<20); Urine Bilirubin NEGATIVE (Negative); Urine Blood 3+ (Negative); Urine Clarity Extremely Turbid (Clear); Urine Color Yellow (Yellow); Urine Culture Reflex Order REFLEXED; Urine Glucose NEGATIVE (Negative); Urine Ketones NEGATIVE (Negative); Urine Microscopic Reflex YN ORDER UMIC; Urine Mucus 4+ /HPF (None Seen); Urine Nitrite 1+ (Negative); Urine Protein 1+ (Negative); Urine Urobilinogen Normal (Normal); Urine Yeast (Budding) Trace /HPF (None Seen); Urine pH 5.5 (5.0-7.0)
[2023-12-23 20:33] LABS: Absolute Eosinophils 0.1 K/uL (0-0.5); Absolute Lymphocytes (CBC) 1.6 K/uL (0.7-4.9); Absolute Monocytes 1.8 K/uL (0.1-1.3); Absolute Neutrophil 9.8 K/uL (1.8-8.0); Basophils % 0.3 % (0-1.3); Eosinophils % 0.4 % (0-4.4); Hematocrit 31.7 % (36.0-45.0); Hemoglobin 10.1 g/dL (12.0-15.0); Lymphocytes % 12.1 % (15.3-44.8); MCH 22.2 pg (27.0-35.0); MCHC 31.8 g/dL (32.0-36.0); MCV 69.9 fL (80-100); MPV 9.8 fL (7.6-11.3); Monocytes % 13.6 % (3.3-12.3); Neutrophils % 73.6 % (41.7-73.7); Nucleated Red Blood Cells % 0.1 % (0-0); Platelets 244 thou/uL (152-406); RBC Red Blood Cell Count 4.53 M/uL (3.86-4.86); Red Cell Distribution Width 19.9 % (12.1-15.2)
[2023-12-23] MEDS ORDERED: AZITHROMYCIN 500 MG INJ IVPB ONE (20:42)
[2023-12-23] MEDS ORDERED: CEFTRIAXONE 1000 MG/VIAL ONE (20:42)
[2023-12-23] MEDS ORDERED: NA CHLORIDE 0.9% 250 ML ONE (20:42)
[2023-12-23 20:43] LABS: PT Prothrombin Time 12.1 SECONDS (9.5-12.5); PTT, Activated Partial Thromb 25.4 SECONDS (24.3-36.9); Protime INR 1.1
[2023-12-23] MEDS ORDERED: ONDANSETRON 4 MG/2 ML VIAL ONE (20:52)
[2023-12-23 20:55] LABS: Anion Gap 12.7 mEq/L (5.0-15.0); Bilirubin Total 0.6 mg/dL (0.2-1.0); Globulin 3.9 g/dL (2.3-3.5); Potassium 3.7 mEq/L (3.5-5.1); Protein, Total 7.9 g/dL (6.4-8.2)
[2023-12-23 21:13] LABS: Blood Morphology Comment NOTED (NOT SEEN); Platelet Estimate ADEQ; White Blood Cell Scan OK (OK)
[2023-12-23 21:14] LABS: Microcytosis 1+
--- NOTE | 2023-12-23 21:27 | EDPHYS ---
Physician Documentation [facility] Name: Francie Cota Age: 83 yrs Sex: Female : 1940 Arrival Date: 12/23/2023 Time: 17:32 Bed 16 Private MD: ED Physician Ja Merino HPI: 12/22 21:56 This 83 yrs old Female presents to ER via Ambulatory with complaints of Flu Symptoms. kb 21:57 Pt is an 83 year old female who presents for cough, congestion, fever, lightheadedness kb and shortness of breath for 3 days. Denies chest pain, n/v/d. . 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 - Social history:: Smoking status: Patient denies any tobacco usage or history of. ROS: 21:56 Abdomen/GI: Negative for abdominal pain, nausea, vomiting, diarrhea, and constipation, kb 21:56 Constitutional: Positive for chills, fatigue, fever, malaise, 21:56 ENT: Positive for sinus congestion, 21:56 Respiratory: Positive for cough, shortness of breath, 21:56 Neuro: Positive for lightheaded, 21:56 All other systems are negative, Exam: 21:56 Constitutional: This is a well developed, well nourished patient who is awake, alert, kb and in no acute distress. Head/Face: Normocephalic, atraumatic. ENT: Moist Mucous membranes Cardiovascular: Regular rate Respiratory: Respirations even and unlabored. No increased work of breathing. Talking in full sentences Abdomen/GI: Soft, non-tender. No distention Skin: Warm, dry with normal turgor. Normal color. MS/ Extremity: Pulses equal, no cyanosis. Neurovascular intact. Full, normal range of motion. Neuro: Awake and alert, GCS 15, oriented to person, place, time, and situation. Moves all extremities. Normal gait. Vital Signs: 18:00 BP 110 / 93; Pulse 104; Resp 16; Temp 99.2; Pulse Ox 96% on R/A; Weight 86.18 kg; tl4 Height 5 ft. 2 in. ; Pain 4/10; 19:20 BP 160 / 87; Pulse 105; Resp 20 S; Pulse Ox 98% on R/A; ha1 20:20 BP 152 / 90; Pulse 102; Resp 18 S; Pulse Ox 98% on R/A; ha1 21:20 BP 154 / 97; Pulse 98; Resp 18 S; Temp 99.2(O); Pulse Ox 97% on R/A; ha1 22:30 BP 150 / 95; Pulse 92; Resp 17 S; Pulse Ox 97% on R/A; ha1 23:05 BP 153 / 131; Pulse 93; Resp 15; Pulse Ox 93% on R/A; Pain 0/10; pf1 12/23 00:00 BP 126 / 106; Pulse 93; Resp 19; Temp 98; Pulse Ox 96% on R/A; Pain 0/10; pf1 01:00 BP 140 / 88; Pulse 91; Resp 22; Pulse Ox 97% on 2 lpm NC; Pain 0/10; pf1 02:00 BP 132 / 66; Pulse 87; Resp 23; Temp 98.2; Pulse Ox 98% on 2 lpm NC; Pain 0/10; pf1 12/22 18:00 Body Mass Index 34.75 (86.18 kg, 157.48 cm) tl4 03 18:00 Pain Scale: Adult tl4 23:05 Pain Scale: Adult pf1 12/23 00:00 Pain Scale: Adult pf1 01:00 Pain Scale: Adult pf1 02:00 Pain Scale: Adult pf1 MDM: 12/22 17:49 Patient medically screened. kb 21:57 Differential Diagnosis: Bronchitis Influenza Upper Respiratory Infection Pneumonia. kb Data reviewed: vital signs, nurses notes. Consideration of Admission/Observation Patient was admitted/placed on observation. Escalation of care including admission/observation considered. Management of patient was discussed with the following: Hospitalist: Dr Craft accepts pt for admission. Historians other than the Patient: Daughter/Son: daughter. Counseling: I had a detailed discussion with the patient and/or guardian regarding the historical points, exam findings, and any diagnostic results supporting the discharge/admit diagnosis, lab results, radiology results, the need for further work-up and treatment in the hospital. 12/22 17:58 Order name: Flu; Complete Time: 20:05 kb 12/22 17:58 Order name: COVID-19 SARS RT PCR; Complete Time: 20:30 kb 12/22 17:59 Order name: Urinalysis w/ reflexes; Complete Time: 20:30 kb 12/22 19:14 Order name: Blood Culture Adult (2) kb 12/22 19:14 Order name: CBC with Diff; Complete Time: 21:21 kb 12/22 19:14 Order name: CMP; Complete Time: 21:21 kb 12/22 19:14 Order name: Lactate w/ 2H reflex if indic.; Complete Time: 21:21 kb 12/22 19:14 Order name: Protime (+inr); Complete Time: 21:21 kb 12/22 19:14 Order name: Ptt, Activated; Complete Time: 21:21 kb 12/22 20:25 Order name: Urine Culture EDMS 12/22 21:14 Order name: CBC Smear Scan; Complete Time: 21:21 EDMS 12/22 21:33 Order name: CBC with Automated Diff EDMS / 21:33 Order name: CBC with Automated Diff EDMS 12/22 21:33 Order name: CBC with Automated Diff EDMS / 21:33 Order name: CBC with Automated Diff EDMS / 21:33 Order name: Comprehensive Metabolic Panel EDMS 12/22 21:33 Order name: Comprehensive Metabolic Panel EDMS / 21:33 Order name: Comprehensive Metabolic Panel EDMS / 21:33 Order name: Comprehensive Metabolic Panel EDMS 12/23 05:40 Order name: Transferrin Sat/Iron Binding EDMS 12/23 05:40 Order name: Ferritin EDMS 12/22 17:58 Order name: Chest Single View XRAY; Complete Time: 19:14 kb 12/22 19:14 Order name: EKG; Complete Time: 19:15 kb 12/22 19:14 Order name: Accucheck; Complete Time: 20:22 kb 12/22 19:14 Order name: Cardiac monitoring; Complete Time: 20:22 kb 12/22 19:14 Order name: EKG - Nurse/Tech; Complete Time: 20:22 kb 12/22 19:14 Order name: IV Saline Lock - Large Bore; Complete Time: 20:22 kb 12/22 19:14 Order name: Labs collected and sent; Complete Time: 20:22 kb 12/22 19:14 Order name: O2 Per Protocol; Complete Time: 20:22 kb 12/22 19:14 Order name: O2 Sat Monitoring; Complete Time: 20:22 kb 12/22 19:14 Order name: Vital Signs; Complete Time: 20:22 kb Administered Medications: 20:40 Drug: Rocephin IV 1 grams IV at calculated rate once; Given slow IV push per pharmacy ha1 instructions Route: IV; Rate: calculated rate; Site: right antecubital; 21:10 Follow up: Response: No adverse reaction; Marked relief of symptoms; IV Status: pf1 Completed infusion; IV Intake: 10ml 20:48 Drug: Zithromax IVPB 500 mg IVPB once over 1 hrs; mix in 250 mL NS Route: IVPB; Infused ha1 Over: 1 hrs; Site: right antecubital; 21:40 Follow up: Response: No adverse reaction; IV Status: Completed infusion; IV Intake: pf1 250ml 22:00 Follow up: Response: No adverse reaction; IV Status: Completed infusion; IV Intake: ha1 250ml 20:50 Drug: Ondansetron IVP 4 mg IVP once; over 2 minutes Route: IVP; Site: right antecubital;ha1 21:10 Follow up: Response: No adverse reaction; Marked relief of symptoms pf1 21:15 Follow up: Response: No adverse reaction; Marked relief of symptoms ha1 22:00 Drug: Acetaminophen PO 650 mg PO once Route: PO; ha1 23:00 Follow up: Response: No adverse reaction; Marked relief of symptoms; Temperature is pf1 decreased Disposition Summary: 12/23/23 21:26 Hospitalization Ordered Notes: Hospitalization Status: Inpatient Admission kb Provider: Hugh Craft Condition: Stable kb Problem: new kb Symptoms: are unchanged kb Bed/Room Type: Standard kb Location: Telemetry/MedSurg (Inpatient)(12/24/23 11:51) eb Room Assignment: 406(12/24/23 11:51) eb Diagnosis - Pneumonia, unspecified organism kb - UTI/ Urinary tract infection, site not specified kb - Sepsis, unspecified organism kb Forms: - Medication Reconciliation Form kb - SBAR form kb - Leadership Thank You Letter kb Addendum: 12/28/2023 09:48 Co-signature as Attending Physician, Ja Merino MD I reviewed the patient's care r n provided by the Advanced Practice Provider and agree with the diagnosis and treatment plan. Signatures: Dispatcher [employer] Supriya Hutton, ATTENDING UROLOGIST-C ATTENDING UROLOGIST-Ckb Ja Merino MD MD rn Botello, Elizabeth eb Calcote, Vanessa RN RN vc1 Sanam Schulte RN RN ha1 Rick Escobar RN RN tl4 Miri Jean RN pf1 Corrections: (The following items were deleted from the chart) 12/23 02:12/22 21:26 Telemetry/MedSurg (Inpatient) kb 1 12/23 02:03 03 21:26 kb 1 12/23 11:51 02:03 [facility] ER HOLD vc1 eb 11:51 02:03 ERHOLD- vc1 eb
--- NOTE | 2023-12-23 21:27 | ER ---
Nurse's Notes [facility] Name: Francie Cota Age: 83 yrs Sex: Female : 1940 Arrival Date: 12/23/2023 Time: 17:32 Bed 16 Private MD: Diagnosis: Pneumonia, unspecified organism;UTI/ Urinary tract infection, site not specified;Sepsis, unspecified organism Presentation: 12/22 17:57 Chief complaint: Patient states: Pt c/o fever, cough, congestion, and feeling very tl4 lightheaded x 3 days. Coronavirus screen: congestion, cough unrelated to allergies, fever. 17:57 Method Of Arrival: Ambulatory tl4 18:00 Ebola Screen: No symptoms or risks identified at this time. Initial Sepsis Screen: Does tl4 the patient meet any 2 criteria? No. Patient's initial sepsis screen is negative. Does the patient have a suspected source of infection? No. Patient's initial sepsis screen is negative. Risk Assessment: Do you want to hurt yourself or someone else? Patient reports no desire to harm self or others. Onset of symptoms was December 20, 2023. 18:00 Acuity: CHAD 3 tl4 Triage Assessment: 18:02 General: Appears distressed, uncomfortable, Behavior is cooperative. Pain: Complains of tl4 pain in abdomen. EENT: Reports nasal congestion nasal discharge. Neuro: Reports dizziness. Cardiovascular: No deficits noted. Respiratory: Reports cough that is. GI: No deficits noted. No signs and/or symptoms were reported involving the gastrointestinal system. : No deficits noted. No signs and/or symptoms were reported regarding the genitourinary system. Derm: No deficits noted. No signs and/or symptoms reported regarding the dermatologic system. Musculoskeletal: No deficits noted. No signs and/or symptoms reported regarding the musculoskeletal system. 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 - Social history:: Smoking status: Patient denies any tobacco usage or history of. Screenin:34 Abuse screen: Denies threats or abuse. Denies injuries from another. Nutritional ha1 screening: No deficits noted. Tuberculosis screening: No symptoms or risk factors identified. 23:04 [facility] ED Fall Risk Assessment (Adult) History of falling in the last 3 months, pf1 including since admission No falls in past 3 months (0 pts) Confusion or Disorientation No (0 pts) Intoxicated or Sedated No (0 pts) Impaired Gait No (0 pts) Mobility Assist Device Used No (0 pt) Altered Elimination No (0 pt) Score/Fall Risk Level 0 - 2 = Low Risk Oriented to surroundings, Maintained a safe environment, Educated pt \T\ family on fall prevention, incl call for assistance when getting out of bed, Assessed \T\ reinforced patient's understanding of fall precautions, Provided non-skid footwear, Hourly rounding (assess needs \T\ fall precautionary measures) done, Used ambulatory aids as needed (educated on \T\ assisted with), Used gait belt as appropriate. Assessment: 19:15 General: Appears uncomfortable, Behavior is calm, cooperative. Pain: Complains of pain ha1 in abdomen Pain does not radiate. Pain currently is 7 out of 10 on a pain scale. Quality of pain is described as crampy, Pain began 2-3 days ago. Neuro: Level of Consciousness is awake, alert, obeys commands, Oriented to person, place, time, situation. Cardiovascular: Capillary refill < 3 seconds Patient's skin is warm and dry. Respiratory: Reports shortness of breath at rest cough that is productive, persistent Airway is patent Respiratory effort is even, unlabored, Respiratory pattern is regular, symmetrical, Breath sounds with wheezes bilaterally. Derm: Skin is pink, warm \T\ dry. Musculoskeletal: Circulation, motion, and sensation intact. 20:15 Reassessment: Patient and/or family updated on plan of care and expected duration. Pain ha1 level reassessed. Patient is alert, oriented x 3, equal unlabored respirations, skin warm/dry/pink. 21:15 Reassessment: Patient and/or family updated on plan of care and expected duration. Pain ha1 level reassessed. Patient is alert, oriented x 3, equal unlabored respirations, skin warm/dry/pink. 21:55 Reassessment: Patient and/or family updated on plan of care and expected duration. Pain ha1 level reassessed. Patient is alert, oriented x 3, equal unlabored respirations, skin warm/dry/pink. patient reports headache. Notified care provider. 22:50 Reassessment: Patient and/or family updated on plan of care and expected duration. Pain ha1 level reassessed. Patient is alert, oriented x 3, equal unlabored respirations, skin warm/dry/pink. 23:05 General: Appears in no apparent distress. comfortable, well groomed, well developed, pf1 Behavior is calm, cooperative, appropriate for age, quiet. 23:05 Pain: Denies pain. Neuro: No deficits noted. Level of Consciousness is awake, alert, pf1 obeys commands, Oriented to person, place, time, situation. Cardiovascular: Reports shortness of breath, Capillary refill < 3 seconds Patient's skin is warm and dry. Respiratory: Reports shortness of breath cough that is Airway is patent Respiratory effort is even, unlabored, Respiratory pattern is regular, symmetrical. GI: No deficits noted. No signs and/or symptoms were reported involving the gastrointestinal system. : No deficits noted. No signs and/or symptoms were reported regarding the genitourinary system. EENT: No deficits noted. No signs and/or symptoms were reported regarding the EENT system. 12/23 00:00 Reassessment: Patient appears in no apparent distress at this time. Patient and/or pf1 family updated on plan of care and expected duration. Pain level reassessed. Patient is alert, oriented x 3, equal unlabored respirations, skin warm/dry/pink. Patient states symptoms have improved. 01:00 Reassessment: Patient appears in no apparent distress at this time. Patient and/or pf1 family updated on plan of care and expected duration. Pain level reassessed. Patient is alert, oriented x 3, equal unlabored respirations, skin warm/dry/pink. Patient states feeling better. Patient states symptoms have improved. 02:00 Reassessment: Patient appears in no apparent distress at this time. Patient and/or pf1 family updated on plan of care and expected duration. Pain level reassessed. Patient is alert, oriented x 3, equal unlabored respirations, skin warm/dry/pink. Patient states feeling better. Patient states symptoms have improved. Vital Signs: 12/22 18:00 BP 110 / 93; Pulse 104; Resp 16; Temp 99.2; Pulse Ox 96% on R/A; Weight 86.18 kg; tl4 Height 5 ft. 2 in. ; Pain 4/10; 19:20 BP 160 / 87; Pulse 105; Resp 20 S; Pulse Ox 98% on R/A; ha1 20:20 BP 152 / 90; Pulse 102; Resp 18 S; Pulse Ox 98% on R/A; ha1 21:20 BP 154 / 97; Pulse 98; Resp 18 S; Temp 99.2(O); Pulse Ox 97% on R/A; ha1 22:30 BP 150 / 95; Pulse 92; Resp 17 S; Pulse Ox 97% on R/A; ha1 23:05 BP 153 / 131; Pulse 93; Resp 15; Pulse Ox 93% on R/A; Pain 0/10; pf1 12/23 00:00 BP 126 / 106; Pulse 93; Resp 19; Temp 98; Pulse Ox 96% on R/A; Pain 0/10; pf1 01:00 BP 140 / 88; Pulse 91; Resp 22; Pulse Ox 97% on 2 lpm NC; Pain 0/10; pf1 02:00 BP 132 / 66; Pulse 87; Resp 23; Temp 98.2; Pulse Ox 98% on 2 lpm NC; Pain 0/10; pf1 03 18:00 Body Mass Index 34.75 (86.18 kg, 157.48 cm) tl4 03 18:00 Pain Scale: Adult tl4 23:05 Pain Scale: Adult pf1 03 00:00 Pain Scale: Adult pf1 01:00 Pain Scale: Adult pf1 02:00 Pain Scale: Adult pf1 ED Course: 12/22 17:36 Patient arrived in ED. im 17:46 Supriya Elizondo FNP-C is PHCP. kb 17:47 Ja Merino MD is Attending Physician. kb 18:01 Triage completed. tl4 18:02 Arm band placed on right wrist. tl4 18:13 Chest Single View XRAY In Process Unspecified. EDMS 19:09 Patient has correct armband on for positive identification. Placed in gown. Bed in low ha1 position. Side rails up X 1. Adult w/ patient. 19:09 Client placed on continuous cardiac and pulse oximetry monitoring. NIBP monitoring ha1 applied. Door closed. Noise minimized. Lights dimmed. Warm blanket given. Pillow given. 20:00 Inserted saline lock: 22 gauge in right antecubital area, using aseptic technique. ha1 Blood collected. 20:22 Blood Culture Adult (2) Sent. wm 20:22 CBC with Diff Sent. wm 20:22 CMP Sent. wm 20:22 Lactate w/ 2H reflex if indic. Sent. wm 20:22 Protime (+inr) Sent. wm 20:22 Ptt, Activated Sent. wm 20:57 Sanam Schulte RN is Primary Nurse. ha1 21:26 Hugh Craft MD is Hospitalizing Provider. kb 23:04 No provider procedures requiring assistance completed. pf1 23:04 Patient admitted, IV remains in place. pf1 12/23 02:03 Provided Education on: need for admit. pf1 07:28 Primary Nurse role handed off by Sanam Schulte RN eb Administered Medications: 12/22 20:40 Drug: Rocephin IV 1 grams IV at calculated rate once; Given slow IV push per pharmacy ha1 instructions Route: IV; Rate: calculated rate; Site: right antecubital; 21:10 Follow up: Response: No adverse reaction; Marked relief of symptoms; IV Status: pf1 Completed infusion; IV Intake: 10ml 20:48 Drug: Zithromax IVPB 500 mg IVPB once over 1 hrs; mix in 250 mL NS Route: IVPB; Infused ha1 Over: 1 hrs; Site: right antecubital; 21:40 Follow up: Response: No adverse reaction; IV Status: Completed infusion; IV Intake: pf1 250ml 22:00 Follow up: Response: No adverse reaction; IV Status: Completed infusion; IV Intake: ha1 250ml 20:50 Drug: Ondansetron IVP 4 mg IVP once; over 2 minutes Route: IVP; Site: right antecubital;ha1 21:10 Follow up: Response: No adverse reaction; Marked relief of symptoms pf1 21:15 Follow up: Response: No adverse reaction; Marked relief of symptoms ha1 22:00 Drug: Acetaminophen PO 650 mg PO once Route: PO; ha1 23:00 Follow up: Response: No adverse reaction; Marked relief of symptoms; Temperature is pf1 decreased Medication: 21:49 VIS not applicable for this client. ha1 Intake: 21:10 IV: 10ml; Total: 10ml. pf1 21:40 IV: 250ml; Total: 260ml. pf1 22:00 IV: 250ml; Total: 510ml. ha1 Outcome: 21:26 Decision to Hospitalize by Provider. kb 12/23 02:03 Admitted to ER Hold. Please see [facility] for further documentation. pf1 Condition: stable 02:03 Instructed on the need for admit, Demonstrated understanding of instructions, pf1 12:01 Admitted to Tele accompanied by tech, Report called to Taryn hernandez 12:23 Patient left the ED. eb Signatures: Dispatcher [employer] EDMS Supriya Elizondo, AXLE INSPECTOR-C AXLE INSPECTOR-CkAyala Silveira Wendy wm Ayala, Heidy, RN RN ha1 Miri Jena RN RN pf1 Guillermina Ramírez Christina cp4 Rick Escobar RN RN tl4 Corrections: (The following items were deleted from the chart) 06:02 06:00 Condition: stable pf1 pf1 06:02 06:00 Admitted to ER Hold. Please see [facility] for further documentation. pf1 pf1
[2023-12-23] MEDS ORDERED: ONDANSETRON 4 MG/2 ML VIAL IV PRN (21:29)
--- NOTE | 2023-12-23 21:32 | P.HP ---
Certification for Inpatient Patient admitted to: Inpatient With expected LOS: >2 Midnights Practitioner: I am a practitioner with admitting privileges, knowledge of patient current condition, hospital course, and medical plan of care. Services: Services provided to patient in accordance with Admission requirements found in Title 42 Section 412.3 of the Code of Federal Regulations Patient History Date of Service: 12/24/23 Reason for admission: Urinary tract infection History of Present Illness: 84-year-old female patient was evaluated in the ED for episode of extreme lethargy weakness and cough productive of sputum. She has a medical history significant for hyperlipidemia, hypothyroidism. She had a UA that was significantly concerning for urinary tract infection and she was found to have anemia with low MCV. She was started on broad-spectrum antibiotic therapy of Rocephin and was admitted for inpatient care. She did report night sweats and lethargy but she denied overt episode of burning urination. She has a history of recurrent urinary tract infection as per family members at bedside. Allergies adhesive tape Allergy (Verified 10/16/16 22:48) Itching/Hives/Rash Sulfa (Sulfonamide Antibiotics) Allergy (Verified 10/16/16 22:48) Unknown Home Medications: Bupropion HCl [Bupropion HCl Sr] 1 tab PO DAILY 10/16/16 Escitalopram Oxalate 1 tab PO DAILY 10/16/16 Ezetimibe [Zetia*] 1 tab PO DAILY 10/16/16 Hydrocodone/Acetaminophen [Hydrocodone-Acetamin 10-325 mg] 1 each PO PRN PRN 10/16/16 Levothyroxine [Synthroid*] 1 tab PO DAILY 10/16/16 Rosuvastatin Calcium [Crestor] 1 tab PO DAILY 10/16/16 Temazepam [Restoril*] 1 cap PO DAILY 10/16/16 Pantoprazole Sodium [Protonix] 40 mg PO DAILY #30 tablet. 10/17/16 levoFLOXacin [Levaquin] 500 mg PO DAILY #14 tab 10/17/16 - Past Medical/Surgical History -: hyperlipedemia -: hypothyroidism -: depression -: back fusion -: hysterectomy - Social History Alcohol use: No CD- Drugs: No Caffeine use: No Review of Systems General: Chills, Weakness, Malaise Eyes: Unremarkable ENT: Unremarkable Respiratory: Unremarkable Cardiovascular: Unremarkable Gastrointestinal: Unremarkable Genitourinary: Unremarkable Musculoskeletal: Unremarkable Integumentary: Unremarkable Neurological: Unremarkable Lymphatics: Unremarkable Physical Examination - Physical Exam General: Alert, Oriented x3 HEENT: Atraumatic Neck: Supple Respiratory: Normal air movement Cardiovascular: Regular rate/rhythm, Normal S1 S2 Gastrointestinal: Soft and benign Musculoskeletal: No swelling Neurological: Normal speech, Normal strength at 5/5 x4 extr - Studies Laboratory Data (last 24 hrs) 12/23/23 12/23/23 12/23/23 20:15 20:15 20:15 WBC 13.20 H Hgb 10.1 L Hct 31.7 L Plt Count 244 PT 12.1 INR 1.10 APTT 25.4 Sodium 133 L Potassium 3.7 BUN 15 Creatinine 0.68 Glucose 155 H Total Bilirubin 0.6 AST 22 ALT 23 Alkaline Phosphatase 90 Microbiology Data (last 24 hrs): 12/23/23 19:36 Nasopharnyx Influenza Type A Antigen Screen - Final 12/23/23 19:36 Nasopharnyx Influenza Type B Antigen Screen - Final Assessment and Plan - Plan Urinary tract infection: UA is significantly concerning. Will continue empiric antibiotic therapy with Rocephin pending urine culture finalization. Continue other supportive care Pneumonia: Clinical symptomatology is concerning. Continue Rocephin and add azithromycin for better coverage. Will follow symptoms closely. Hypothyroidism: Continue levothyroxine. Hyperlipidemia: Continue statin therapy. Depression: Will continue antidepressant medications. Anemia: Hemoglobin of 9.0 noted. Low MCV noted. Will obtain iron studies. Will start iron repletion as needed. Prophylaxis: Lovenox for DVT prophylaxis. CODE STATUS: Full code. Disposition: We will treat her multiple multiple medical issues and she will be discharged once cleared for outpatient therapy. - Advance Directives Does patient have a Living Will: No Does patient have a Durable POA for Healthcare: No
[2023-12-23] MEDS: NA CHLORIDE 0.9% 1,000 ML IV SCH (22:00)
[2023-12-24] MEDS ORDERED: NA CHLORIDE 0.9% 1,000 ML ONE ×2 (00:52→07:41)
[2023-12-24 03:00] LABS: Absolute Basophils 0.1 K/uL (0-0.5); Absolute Lymphocytes (CBC) 1.9 K/uL (0.7-4.9); Absolute Monocytes 1.6 K/uL (0.1-1.3); Absolute Neutrophil 6.8 K/uL (1.8-8.0); Basophils % 0.5 % (0-1.3); Eosinophils % 0.5 % (0-4.4); Hematocrit 27.8 % (36.0-45.0); Lymphocytes % 18.5 % (15.3-44.8); MCH 22.5 pg (27.0-35.0); MCHC 32.6 g/dL (32.0-36.0); MPV 9.8 fL (7.6-11.3); Monocytes % 15.1 % (3.3-12.3); Neutrophils % 65.4 % (41.7-73.7); Platelets 227 thou/uL (152-406); RBC Red Blood Cell Count 4.02 M/uL (3.86-4.86); Red Cell Distribution Width 19.6 % (12.1-15.2)
[2023-12-24 03:08] LABS: MCV 69.1 fL (80-100)
[2023-12-24 03:21] LABS: Albumin 3.5 g/dL (3.4-5.0); Anion Gap 10.4 mEq/L (5.0-15.0); Bilirubin Total 0.5 mg/dL (0.2-1.0); Globulin 3.5 g/dL (2.3-3.5); Potassium 3.4 mEq/L (3.5-5.1)
[2023-12-24 05:40] LABS: Ferritin 16.3 ng/mL (8-388)
[2023-12-24] MEDS ORDERED: ACETAMINOPHEN 325 MG TABLET ONE (05:52)
[2023-12-24] MEDS: ACETAMINOPHEN 325 MG TABLET PO PRN (05:55)
[2023-12-24 06:37] VITALS: BMI 34.7
[2023-12-24] MEDS ORDERED: CEFTRIAXONE 1000 MG/VIAL ONE (07:40)
[2023-12-24] MEDS ORDERED: ENOXAPARIN 40 MG/0.4 ML SQ ONE (07:41)
[2023-12-24] MEDS: PNEUMOCOCCAL VACCINE 0.5 ML IMVAC ONE ×2 (08:00→14:00)
[2023-12-24] MEDS: ENOXAPARIN 40 MG/0.4 ML SQ SCH (08:42)
[2023-12-24] MEDS: CEFTRIAXONE 1,000 MG in NA CHLORIDE 0.9% 50 ML IVPB SCH (08:42)
--- NOTE | 2023-12-24 10:46 | P.PN ---
Subjective Date of Service: 12/24/23 Chief Complaint: Urinary tract infection 2 l N/C for support, Pt respirations are even and unlabored. On IV antibiotics for pneumonia, acute cystitis - Physical Exam General: Alert, Oriented x3 HEENT: Atraumatic Neck: Supple Respiratory: Normal air movement Cardiovascular: Regular rate/rhythm, Normal S1 S2 Gastrointestinal: Soft and benign Musculoskeletal: No swelling Neurological: Normal speech, Normal strength at 5/5 x4 extr <Nano Bolton - Last Filed: 12/24/23 18:38> Date of Service: 12/24/23 <Kalin Lara - Last Filed: 12/25/23 16:02> Review of Systems per HPI <Nano Bolton - Last Filed: 12/24/23 18:38> Physical Examination - Vital Signs Temperature: 98.0 F Blood Pressure: 144/70 Pulse: 88 Respirations: 18 Pulse Ox (%): 97 - Studies Laboratory Data (last 24 hrs) 12/23/23 12/23/23 12/23/23 20:15 20:15 20:15 WBC 13.20 H Hgb 10.1 L Hct 31.7 L Plt Count 244 PT 12.1 INR 1.10 APTT 25.4 Sodium 133 L Potassium 3.7 BUN 15 Creatinine 0.68 Glucose 155 H Total Bilirubin 0.6 AST 22 ALT 23 Alkaline Phosphatase 90 Microbiology Data (last 24 hrs): 12/23/23 20:15 Blood - Blood Anaerobic Blood Culture - Final 12/23/23 19:36 Nasopharnyx Influenza Type A Antigen Screen - Final 12/23/23 19:36 Nasopharnyx Influenza Type B Antigen Screen - Final <Nano Bolton - Last Filed: 12/24/23 18:38> - Studies Microbiology Data (last 24 hrs): 12/23/23 20:15 Blood - Blood Anaerobic Blood Culture - Final <Kalin Lara - Last Filed: 12/25/23 16:02> Assessment And Plan - Plan - Plan Acute cystitis with hematuria Urinary tract infection: UA is significantly concerning. Will continue empiric antibiotic therapy with Rocephin pending urine culture finalization. Continue other supportive care Acute hypoxic respiratory failure secondary to pneumonia Pneumonia: Clinical symptomatology is concerning. Continue Rocephin and add azithromycin for better coverage. Will follow symptoms closely. Hypothyroidism: Continue levothyroxine. Hyperlipidemia: Continue statin therapy. Depression: Will continue antidepressant medications. Anemia: Hemoglobin of 9.0 noted. Low MCV noted. Will obtain iron studies. Will start iron repletion as needed. Prophylaxis: Lovenox for DVT prophylaxis. CODE STATUS: Full code. Disposition: We will treat her multiple multiple medical issues and she will be discharged once cleared for outpatient therapy. Discharge Plan: Home - Code Status/Comfort Care Code Status: Full Code Critical Care: No Time Spent Managing PTS Care (In Minutes): 35 <Nano Bolton - Last Filed: 12/24/23 18:38> Date of Service: 12/24/23 Patient seen and examined. Patient clinically doing well. Patient respiratory status is stable. Continue with antibiotics. Patient respiratory status is improved and we will wean off of patient's oxygen. <Kalin Lara - Last Filed: 12/25/23 16:02>
--- NOTE | 2023-12-24 14:14 | EKG ---
Test Date: 2023-12-23 Test Time: 19:48:47 [employer]: ANA MEASUREMENT RESULTS: Intervals: Rate: 97 FL: 176 QRSD: 138 QT: 386 QTc: 490 [place]: P: 44 FL: 176 QRS: 71 T: 20 INTERPRETIVE STATEMENTS: Normal sinus rhythm Right bundle branch block Abnormal ECG Compared to ECG 08/24/2023 10:30:29 No significant changes Electronically Signed On 12-24-23 14:12:40 SUPERVISOR COMPONENT ASSEMBLER by Pineda Steen
[2023-12-24 23:57] VITALS: O2SAT 96
[2023-12-25 04:43] LABS: Absolute Eosinophils 0.4 K/uL (0-0.5); Absolute Lymphocytes (CBC) 2.2 K/uL (0.7-4.9); Absolute Neutrophil 6.3 K/uL (1.8-8.0); Basophils % 0.4 % (0-1.3); Eosinophils % 3.3 % (0-4.4); Hematocrit 27.9 % (36.0-45.0); Hemoglobin 9.1 g/dL (12.0-15.0); Lymphocytes % 20.2 % (15.3-44.8); MCH 22.8 pg (27.0-35.0); MCHC 32.7 g/dL (32.0-36.0); MCV 69.6 fL (80-100); MPV 9.6 fL (7.6-11.3); Monocytes % 18.2 % (3.3-12.3); Neutrophils % 57.9 % (41.7-73.7); Platelets 202 thou/uL (152-406); RBC Red Blood Cell Count 4.01 M/uL (3.86-4.86); Red Cell Distribution Width 19.7 % (12.1-15.2)
[2023-12-25 04:50] LABS: Albumin 3.2 g/dL (3.4-5.0); Albumin/Globulin Ratio 0.9 (1.1-1.8); Anion Gap 9.6 mEq/L (5.0-15.0); Bilirubin Total 0.3 mg/dL (0.2-1.0); Globulin 3.6 g/dL (2.3-3.5); Potassium 3.6 mEq/L (3.5-5.1); Protein, Total 6.8 g/dL (6.4-8.2)
[2023-12-25 05:12] LABS: White Blood Cell Scan OK (OK)
[2023-12-25 05:13] LABS: Blood Morphology Comment NOT SEEN (NOT SEEN); Hypochromasia 1+; Macrocytosis 1+; Microcytosis 1+; Platelet Estimate ADEQ; Teardrop Cell 1+
[2023-12-25] MEDS: LEVOTHYROXINE SOD 0.05 MG TABLET PO SCH (07:33)
--- NOTE | 2023-12-25 08:15 | P.PN ---
Subjective Date of Service: 12/25/23 Chief Complaint: Urinary tract infection 2 l N/C for support, Pt respirations are even and unlabored. On IV antibiotics for pneumonia, acute cystitis - Physical Exam General: Alert, Oriented x3 HEENT: Atraumatic Neck: Supple Respiratory: Normal air movement Cardiovascular: Regular rate/rhythm, Normal S1 S2 Gastrointestinal: Soft and benign Musculoskeletal: No swelling Neurological: Normal speech, Normal strength at 5/5 x4 extr Physical Examination - Vital Signs Temperature: 97.4 F Blood Pressure: 173/91 Pulse: 90 Respirations: 20 Pulse Ox (%): 97 - Studies Microbiology Data (last 24 hrs): 12/23/23 20:15 Blood - Blood Anaerobic Blood Culture - Final Assessment And Plan - Plan - Plan Acute cystitis with hematuria improving Urinary tract infection: UA is significantly concerning. IV ceftriaxone Will continue empiric antibiotic therapy with Rocephin pending urine culture finalization. Continue other supportive care Uncontrolled hypertensive Resume home meds, as needed antihypertensive Blood pressure 173/90,, Coreg 6. 3 5 ordered twice daily Acute hypoxic respiratory failure secondary to pneumonia Pneumonia: Clinical symptomatology is concerning. Continue Rocephin and add azithromycin for better coverage. Will follow symptoms closely. O2 96% on 2 L Hypothyroidism: Continue levothyroxine. Hyperlipidemia: Continue statin therapy. Depression: Will continue antidepressant medications. Anemia: Hemoglobin of 9.0 noted. Low MCV noted. Will obtain iron studies. Will start iron repletion as needed. Prophylaxis: Lovenox for DVT prophylaxis. CODE STATUS: Full code. Disposition: We will treat her multiple multiple medical issues and she will be discharged once cleared for outpatient therapy. - Code Status/Comfort Care Code Status: Full Code Time Spent Managing PTS Care (In Minutes): 35
--- NOTE | 2023-12-25 08:46 | P.CNS ---
Date of Consult: 12/25/23 Reason for Consult: pneumonia, uti Chief Complaint: Urinary tract infection History of Present Illness: "84-year-old female patient was evaluated in the ED for episode of extreme lethargy weakness and cough productive of sputum. She has a medical history sig nificant for hyperlipidemia, hypothyroidism. She had a UA that was significantly concerning for urinary tract infection and she was found to have anemia with low MCV. She was started on broad-spectrum antibiotic therapy of Rocephin and was admitted for inpatient care. She did report night sweats and lethargy but she denied overt episode of burning urination. She has a history of recurrent urinary tract infection as per family members at bedside." Allergies adhesive tape Allergy (Verified 10/16/16 22:48) Itching/Hives/Rash Sulfa (Sulfonamide Antibiotics) Allergy (Verified 10/16/16 22:48) Unknown Home medications list reviewed: Yes Home Medications: Escitalopram Oxalate 1 tab PO DAILY 10/16/16 Ezetimibe [Zetia*] 1 tab PO DAILY 10/16/16 Hydrocodone/Acetaminophen [Hydrocodone-Acetamin 10-325 mg] 1 each PO PRN PRN 10/16/16 Levothyroxine [Synthroid*] 1 tab PO DAILY 10/16/16 Rosuvastatin Calcium [Crestor] 1 tab PO DAILY 10/16/16 Temazepam [Restoril*] 1 cap PO BEDTIME 10/16/16 Pantoprazole Sodium [Protonix] 40 mg PO DAILY #30 tablet. 10/17/16 Ascorbic Acid/Ascorbate Sodium [Vitamin C 500 mg Tablet Chew] 1,000 tab PO DAILY 12/24/23 Diphenhydramine [Benadryl Tab/Cap] 50 mg PO BEDTIME 12/24/23 Mv-Mn/Iron/Folic Acid/Herb 190 [Vitamin D3 Complete Caplet] PO 12/24/23 - Past Medical/Surgical History -: hyperlipedemia -: hypothyroidism -: depression -: back fusion -: hysterectomy - Social History Smoking Status: Never smoker Alcohol use: No CD- Drugs: No Caffeine use: No Place of Residence: Home Review of Systems 10-point ROS is otherwise unremarkable General: Weakness Physical Examination Temp Pulse Resp BP Pulse Ox 97.4 F 90 20 173/91 H 97 12/25/23 08:15 12/25/23 08:15 12/25/23 08:15 12/25/23 08:15 12/25/23 08:15 General: Alert, In no apparent distress, Oriented x3 HEENT: Atraumatic, Normocephalic Respiratory: Normal air movement, Diminished (at bases), Other (unlabored respirations on room air) Cardiovascular: No edema, Regular rate/rhythm Gastrointestinal: Normal bowel sounds, Soft and benign Integumentary: No rashes Neurological: Normal speech Laboratory Data - Reviewed Microbiology Data - Reviewed Imagings Data: - Reviewed Conclusions/Impression: Problem List Acute Cystitis Acute hypoxic respiratory failure secondary to pneumonia hypothyroidism depression anemia Acute Cystitis - Urinalysis suggestive of UTI - Urine culture 12/22: mixed judith; <10,000 CFU/mL - Currently on Rocephin (started 12/22) Acute Hypoxic Respiratory Failure Secondary to Pneumonia - XR Chest 12/22: " Mild right basilar opacity may be a mild pneumonia" -Negative Influenza -Negative Covid - Currently on Rocephin Blood cultures 12/22: no growth to date Leukocytosis improved (WBC 13.2 -> 10.9) Afebrile 24 hours Recommendations - Pneumonia: Continue antibiotic therapy for 5 days (12/22-12/27). Consider switch to Levaquin PO to complete remainder of antibiotic course. - Urine culture with less than 10k CFU/mL, mixed judith. On abx for pneumonia. - Continue supportive care - Follow up with PCP as outpatient in 1-2 weeks. - Recommend also seeing a urologist as outpatient, given reported recurrent urinary tract infections Plan of care discussed with patient and daughter at bedside. Case discussed with Amalia Meraz
[2023-12-25] MEDS: carvediloL 3.125 MG TAB PO SCH (09:11)
[2023-12-25] MEDS: PANTOPRAZOLE 40MG TABLET PO SCH (09:12)
[2023-12-25] MEDS: EZETIMIBE 10 MG TAB PO SCH (09:13)
[2023-12-25 13:12] VITALS: BP 120/60; TEMP 97.7
--- NOTE | 2023-12-25 16:07 | P.DS ---
Discharge Date: 12/25/23 Disposition: ROUTINE DISCHARGE Discharge Condition: GOOD Reason for Admission: Urinary tract infection Brief History of Present Illness: 84-year-old female patient was evaluated in the ED for episode of extreme lethargy weakness and cough productive of sputum. She has a medical history significant for hyperlipidemia, hypothyroidism. She had a UA that was significantly concerning for urinary tract infection and she was found to have anemia with low MCV. She was started on broad-spectrum antibiotic therapy of Rocephin and was admitted for inpatient care. She did report night sweats and lethargy but she denied overt episode of burning urination. She has a history of recurrent urinary tract infection as per family members at bedside. Hospital Course: Patient clinically is improving. Continue with antibiotic therapy. Patient's weaned down to room air. At this time patient will be ambulated and if patient does well then anticipate discharge in the morning. Outpatient follow-up with PCP or res counselor. Vital Signs/Physical Exam: Temp Pulse Resp BP Pulse Ox 97.7 F 73 16 120/60 91 12/25/23 12:00 12/25/23 12:00 12/25/23 12:00 12/25/23 12:00 12/25/23 12:00 General: Alert, In no apparent distress, Oriented x3 Laboratory Data at Discharge: WBC 10.90 thou/uL (4.3-10.9) 12/25/23 04:07 Hgb 9.1 g/dL (12.0-15.0) L 12/25/23 04:07 Hct 27.9 % (36.0-45.0) L 12/25/23 04:07 Plt Count 202 thou/uL (152-406) 12/25/23 04:07 PT 12.1 SECONDS (9.5-12.5) 12/23/23 20:15 INR 1.10 12/23/23 20:15 APTT 25.4 SECONDS (24.3-36.9) 12/23/23 20:15 Sodium 139 mEq/L (136-145) 12/25/23 04:07 Potassium 3.6 mEq/L (3.5-5.1) 12/25/23 04:07 BUN 10 mg/dL (7-18) 12/25/23 04:07 Creatinine 0.57 mg/dL (0.55-1.02) 12/25/23 04:07 Glucose 126 mg/dL (74-106) H 12/25/23 04:07 Total Bilirubin 0.3 mg/dL (0.2-1.0) 12/25/23 04:07 AST 16 U/L (15-37) 12/25/23 04:07 ALT 20 U/L (13-56) 12/25/23 04:07 Alkaline Phosphatase 78 U/L (45-117) 12/25/23 04:07 Home Medications: Escitalopram Oxalate 1 tab PO DAILY 10/16/16 Ezetimibe [Zetia*] 1 tab PO DAILY 10/16/16 Hydrocodone/Acetaminophen [Hydrocodone-Acetamin 10-325 mg] 1 each PO PRN PRN 10/16/16 Levothyroxine [Synthroid*] 1 tab PO DAILY 10/16/16 Rosuvastatin Calcium [Crestor] 1 tab PO DAILY 10/16/16 Temazepam [Restoril*] 1 cap PO BEDTIME 10/16/16 Pantoprazole Sodium [Protonix] 40 mg PO DAILY #30 tablet. 10/17/16 Ascorbic Acid/Ascorbate Sodium [Vitamin C 500 mg Tablet Chew] 1,000 tab PO DAILY 12/24/23 Diphenhydramine [Benadryl*] 50 mg PO BEDTIME 12/24/23 Mv-Mn/Iron/Folic Acid/Herb 190 [Vitamin D3 Complete Caplet] PO 12/24/23 Cefdinir [Cefdinir*] 300 mg PO BID #14 cap 12/25/23 Doxycycline Hyclate 100 mg PO BID #14 tab 12/25/23 Ferrous Gluconate 324 mg PO BID #60 tab 12/25/23 carvediloL [Coreg*] 3.125 mg PO BID 6AM 6PM #60 tab 12/25/23 predniSONE [Deltasone] 20 mg PO DAILY #5 tab 12/25/23 New Medications: Cefdinir [Cefdinir*] 300 mg PO BID #14 cap carvediloL [Coreg*] 3.125 mg PO BID 6AM 6PM #60 tab Doxycycline Hyclate 100 mg PO BID #14 tab Ferrous Gluconate 324 mg PO BID #60 tab predniSONE [Deltasone] 20 mg PO DAILY #5 tab Physician Discharge Instructions: -DC IV and DC home -Follow-up with PCP in 1 to 2 weeks -Follow-up with Pulmonary in 1 to 2 weeks -Please call Dr. Lara at [phone] if any questions regarding hospital stay -Please call nursing station at [phone] if any nursing or medication questions -Return to the emergency room if symptoms worsen Diet: AHA Activity: Fall precautions Followup: Chris Goncalves MD [ACTIVE - CAN ADMIT] - 1-2 Weeks Valeria Smith [Primary Care Provider] - 1-2 Weeks Time spent managing pt's care (in minutes): 35
[2023-12-25] MEDS ORDERED: DIPHENHYDRAMINE 25 MG TAB/CAP PO SCH (21:00)
== END 2023-12-25 16:32 | disposition home or self-care (01) | DRG 871 ==
LOC: ER 17:32 → ERHOLD 21:28 → 4TH 12-24 12:11
PROVIDERS: ADMIT Internal Medicine Nephrology; ATTEND Hospitalist
DX: A41.9 Sepsis, unspecified organism (principal); J18.9 Pneumonia, unspecified organism; J96.01 Acute respiratory failure with hypoxia; N30.01 Acute cystitis with hematuria; E03.9 Hypothyroidism, unspecified; E78.5 Hyperlipidemia, unspecified; F32.A Depression, unspecified; D64.9 Anemia, unspecified; Z88.2 Allergy status to sulfonamides; Z11.52 Encounter for screening for COVID-19; Z91.048 Other nonmedicinal substance allergy status; Z79.890 Hormone replacement therapy; Z79.899 Other long term (current) drug therapy; Z90.710 Acquired absence of both cervix and uterus
CPT/HCPCS: 36415; 71045; 80053; 81001; 82728; 82947; 83540; 83605; 84466; 85025; 85610; 85730; 87040; 87086; 87088; 87635; 87804; 93005; 96365; 96375; 99285; J0696; J1650; J2405; J7030; J7050

== ENCOUNTER 2024-06-26 11:57 | Inpatient (IN) | payer OTHER ==
[2024-06-26] MEDS ORDERED: NA CHLORIDE 0.9% 1,000 ML ONE (13:27)
[2024-06-26] MEDS ORDERED: CEFTRIAXONE 2000 MG/VIAL ONE (13:27)
[2024-06-26 13:28] LABS: Specific Gravity 1.016 (1.005-1.030); Sqamous Epithelial None Seen /HPF (None Seen); Transitional Epithelial <5 /HPF (None Seen); Urine Bacteria >50 /HPF (<20); Urine Bilirubin NEGATIVE (Negative); Urine Blood 2+ (Negative); Urine Clarity Extremely Turbid (Clear); Urine Color Yellow (Yellow); Urine Culture Reflex Order REFLEXED; Urine Glucose NEGATIVE (Negative); Urine Ketones NEGATIVE (Negative); Urine Microscopic Reflex YN ORDER UMIC; Urine Mucus Slight /HPF (None Seen); Urine Nitrite NEGATIVE (Negative); Urine Protein 2+ (Negative); Urine RBC 21-50 /HPF (None Seen); Urine Urobilinogen Normal (Normal); Urine WBC >50 /HPF (<5)
[2024-06-26] MEDS ORDERED: NA CHLORIDE 0.9% 100 ML ONE (13:28)
[2024-06-26 13:32] LABS: Absolute Basophils 0.1 K/uL (0-0.5); Absolute Lymphocytes (CBC) 1.3 K/uL (0.7-4.9); Absolute Monocytes 1.5 K/uL (0.1-1.3); Absolute Neutrophil 10.5 K/uL (1.8-8.0); Basophils % 0.6 % (0-1.3); Eosinophils % 0.3 % (0-4.4); Hematocrit 38.7 % (36.0-45.0); Hemoglobin 12.8 g/dL (12.0-15.0); Lymphocytes % 9.4 % (15.3-44.8); MCH 28.9 pg (27.0-35.0); MCHC 33.1 g/dL (32.0-36.0); MCV 87.3 fL (80-100); MPV 9.6 fL (7.6-11.3); Neutrophils % 78.7 % (41.7-73.7); Nucleated Red Blood Cells % 0.1 % (0-0); Platelets 179 thou/uL (152-406); RBC Red Blood Cell Count 4.43 M/uL (3.86-4.86); Red Cell Distribution Width 16.2 % (12.1-15.2)
[2024-06-26 13:46] LABS: PT Prothrombin Time 12.4 SECONDS (9.4-12.5); PTT, Activated Partial Thromb 26.4 SECONDS (24.3-36.9); Protime INR 1.11
[2024-06-26 13:50] LABS: Albumin 3.6 g/dL (3.4-5.0); Albumin/Globulin Ratio 0.8 (1.1-1.8); Anion Gap 11.8 mEq/L (5.0-15.0); Bilirubin Total 1.1 mg/dL (0.2-1.0); Globulin 4.4 g/dL (2.3-3.5); Potassium 3.8 mEq/L (3.5-5.1)
[2024-06-26] MEDS ORDERED: ONDANSETRON 4 MG/2 ML VIAL ONE (14:28)
[2024-06-26] MEDS ORDERED: DIPHENHYDRAMINE 50 MG/ML VIAL ONE (15:00)
[2024-06-26] MEDS ORDERED: ACETAMINOPHEN 500 MG TAB ONE (15:07)
--- NOTE | 2024-06-26 15:44 | RAD REPORT ---
EXAM DESCRIPTION: CT - Head Brain Wo Cont - 06/26/2024 3:36 pm CLINICAL HISTORY: confusion Headache, drowsiness COMPARISON: Head Brain Wo Cont dated 03/16/2019; Abdomen Pelvis W Contrast dated 06/26/2024 TECHNIQUE: All CT scans are performed using dose optimization technique as appropriate and may inclu de automated exposure control or mA/KV adjustment according to patient size. FINDINGS: No intracranial hemorrhage, hydrocephalus or extra-axial fluid collection.Moderate general ized brain atrophy is present with moderate to advanced periventricular and deep white matter chronic microvascular ischemic changes.No areas of brain edema or evidence of midline shift. The paranasal sinuses and mastoids are clear. The calvarium is intact. IMPRESSION: No acute intracranial abnormality.
--- NOTE | 2024-06-26 15:45 | RAD REPORT ---
EXAM DESCRIPTION: CTAbdomen Pelvis W Contrast - 06/26/2024 3:36 pm CLINICAL HISTORY: Abdominal pain. ABD PAIN COMPARISON: Abdomen Pelvis W Contrast dated 08/24/2023; Abdomen Pelvis W Contrast dated 9 TECHNIQUE: Venous phase CT imaging of the abdomen and pelvis was performed with 100 ml non-ionic IV contrast. All CT scans are performed using dose optimization technique as appropriate and may include automated exposure control or mA/KV adjustment according to patient size. FINDINGS: The lung bases are clear.Large hiatal hernia. The liver, spleen, pancreas, adrenal glands and left kidney are within normal limits. Subtle edematou s appearance to the inferior right kidney with mild perinephric fat stranding. This suggests possible early right-sided pyelonephritis. No bowel obstruction, free air, free fluid or abscess. Sigmoid diverticulosis coli without diverticul itis. The appendix is normal. No evidence of significant lymphadenopathy. Lower lumbar spine orthopedic hardware and postsurgical changes. IMPRESSION: Early pyelonephritis is possible on the right. Large hiatal hernia.
--- NOTE | 2024-06-26 16:40 | EDPHYS ---
Physician Documentation [facility] Name: Francie Cota Age: 83 yrs Sex: Female : 1940 Arrival Date: 06/26/2024 Time: 11:57 Bed 15 Private MD: ED Physician Avery Moyer HPI: 06/26 18:58 This 83 yrs old Female presents to ER via Ambulatory with complaints of Urinary Problem.rt 18:58 Patient presents to the ED with dysuria, urinary frequency, nausea since May. rt Patient states that she was concern for UTI, however, did not receive urinalysis. Reports chills today. Denies other acute complaints, symptoms are moderate in severity, no other aggravating or elevating factors.. 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 - Infectious Disease History:: Denies. - Social history:: Smoking status: Patient denies any tobacco usage or history of. Patient uses alcohol, occasionally. - Family history:: not pertinent. ROS: 18:58 Constitutional: Negative for fever, chills, and weight loss, Cardiovascular: Negative rt for chest pain, palpitations, and edema, Respiratory: Negative for shortness of breath, cough, wheezing, and pleuritic chest pain, MS/Extremity: Negative for injury and deformity, Skin: Negative for injury, rash, and discoloration, 18:58 Abdomen/GI: Positive for abdominal pain, nausea, 18:58 : Positive for burning with urination, Cloudy urine, Exam: 18:58 Constitutional: This is a well developed, well nourished patient who is awake, alert, rt and in no acute distress. Head/Face: Normocephalic, atraumatic. Chest/axilla: Normal chest wall appearance and motion. Nontender with no deformity. No lesions are appreciated. Cardiovascular: Regular rate and rhythm with a normal S1 and S2. No gallops, murmurs, or rubs. Normal PMI, no JVD. No pulse deficits. Respiratory: Lungs have equal breath sounds bilaterally, clear to auscultation and percussion. No rales, rhonchi or wheezes noted. No increased work of breathing, no retractions or nasal flaring. Abdomen/GI: Soft, non-tender, with normal bowel sounds. No distension or tympany. No guarding or rebound. No evidence of tenderness throughout. Skin: Warm, dry with normal turgor. Normal color with no rashes, no lesions, and no evidence of cellulitis. MS/ Extremity: Pulses equal, no cyanosis. Neurovascular intact. Full, normal range of motion. 18:58 ECG was reviewed by the Attending Physician. Vital Signs: 12:11 BP 118 / 71; Pulse 97; Resp 19; Temp 98(O); Pulse Ox 95% on R/A; Weight 83.91 kg; tm6 Height 5 ft. 1 in. ; Pain 8/10; 12:32 BP 156 / 72; Pulse 98; Resp 16; Pulse Ox 96% ; me1 13:15 BP 127 / 87; Pulse 92; Resp 19; Pulse Ox 98% on R/A; me1 14:00 BP 130 / 86; Pulse 97; Resp 16; Pulse Ox 97% ; me1 15:00 BP 140 / 90; Pulse 115; Resp 19; Pulse Ox 95% on R/A; me1 15:09 Temp 102.5(O); me1 16:00 BP 130 / 73; Pulse 125; Resp 24; Pulse Ox 95% ; me1 16:46 Temp 101.2(O); me1 17:00 BP 123 / 59; Pulse 120; Resp 24; Pulse Ox 93% ; me1 17:30 BP 113 / 70; Pulse 116; Resp 18; Pulse Ox 100% on R/A; me1 18:30 BP 105 / 59; Pulse 109; Resp 19; Temp 99; Pulse Ox 96% on R/A; me1 12:11 Body Mass Index 34.96 (83.91 kg, 154.94 cm) tm6 12:11 Pain Scale: Adult tm6 MDM: 12:25 Patient medically screened. rt 18:58 Differential Diagnosis UTI, pyelonephritis, sepsis. Data reviewed: vital signs, nurses rt notes, lab test result(s), EKG, radiologic studies. Consideration of Admission/Observation Patient was admitted/placed on observation. Management of patient was discussed with the following: Hospitalist: Agrees to admit. I considered the following discharge prescriptions or medication management in the emergency department Medications were administered in the Emergency Department. See MAR. Independent interpretation of the following test(s) in the Emergency Department CT Scan: My interpretation is No ureteral stone seen on interpretation of CT scan images. Counseling: I had a detailed discussion with the patient and/or guardian regarding the historical points, exam findings, and any diagnostic results supporting the discharge/admit diagnosis, lab results, radiology results, the need for further work-up and treatment in the hospital. Response to treatment: the patient's symptoms have mildly improved after treatment. 06/26 12:44 Order name: CBC with Diff; Complete Time: 14:30 rt 06/26 12:44 Order name: CMP; Complete Time: 14:30 rt 06/26 12:44 Order name: Lipase; Complete Time: 14:30 rt 06/26 12:44 Order name: Urinalysis w/ reflexes; Complete Time: 14:30 rt 06/26 12:44 Order name: Blood Culture Adult (2) rt 06/26 12:44 Order name: Lactate w/ 2H reflex if indic.; Complete Time: 14:30 rt 06/26 12:44 Order name: Protime (+inr); Complete Time: 14:30 rt 06/26 12:44 Order name: Ptt, Activated; Complete Time: 14:30 rt 06/26 13:33 Order name: Urine Culture EDMN 06/26 17:11 Order name: CBC with Automated Diff EDMS 06/26 17:11 Order name: CBC with Automated Diff EDMN 06/26 17:11 Order name: Comprehensive Metabolic Panel EDMN 06/26 17:11 Order name: Comprehensive Metabolic Panel EDMN 06/26 17:11 Order name: Protime (+INR) EDMS 06/26 17:11 Order name: Protime (+INR) EDMN 06/26 17:11 Order name: PTT, Activated Partial Thromb EDMS 06/26 17:12 Order name: PTT, Activated Partial Thromb EDMS 06/26 12:44 Order name: CT Abd/Pelvis - IV Contrast Only; Complete Time: 15:52 rt 06/26 15:16 Order name: CT Head Brain wo Cont; Complete Time: 15:52 rt 06/26 12:44 Order name: IV Saline Lock; Complete Time: 13:25 rt 06/26 12:44 Order name: Labs collected and sent; Complete Time: 13:25 rt 06/26 12:44 Order name: Accucheck; Complete Time: 16:46 rt 06/26 12:44 Order name: Cardiac monitoring; Complete Time: 13:39 rt 06/26 12:44 Order name: IV Saline Lock - Large Bore; Complete Time: 13:25 rt 06/26 12:44 Order name: O2 Per Protocol; Complete Time: 13:08 rt 06/26 12:44 Order name: O2 Sat Monitoring; Complete Time: 13: rt 06/26 12:44 Order name: Vital Signs; Complete Time: :08 rt EC:58 Rate is 93 beats/min. Rhythm is regular, Normal Sinus Rhythm with Right bundle branch rt block. QRS [place] is Normal. [place] interval is normal. QRS interval is normal. QT interval is normal. No Q waves. T waves are Normal. No ST changes noted. Interpreted by me. Administered Medications: 13:31 Drug: NS 0.9% IV 1000 ml IV at 1 bolus Per protocol; 1000 mL bolus Route: IV; Rate: 1 me1 bolus; Site: right antecubital; 17:59 Follow up: Response: No adverse reaction; IV Status: Completed infusion me1 13:31 Drug: Rocephin IV 2 grams IV at calculated rate once; Given slow IV push per pharmarcy me1 instructions Route: IV; Rate: calculated rate; Site: right antecubital; 14:32 Follow up: Response: No adverse reaction; IV Status: Completed infusion me1 14:32 Drug: Ondansetron IVP 4 mg IVP once; over 2 minutes Route: IVP; Site: right antecubital;me1 15:03 Follow up: Response: No adverse reaction; Nausea is decreased me1 15:04 Drug: diphenhydrAMINE IVP 25 mg IVP once Route: IVP; Site: right antecubital; me1 16:44 Follow up: Response: No adverse reaction; Marked relief of symptoms me1 15:09 Drug: Acetaminophen PO 1000 mg PO once Route: PO; me1 16:44 Follow up: Response: No adverse reaction; Temperature is decreased me1 Disposition Summary: 06/26/24 16:40 Hospitalization Ordered Notes: Hospitalization Status: Inpatient Admission rt Provider: Kalin Lara rt Location: Telemetry/MedSurg (Inpatient) rt Condition: Fair rt Problem: new rt Symptoms: have improved rt Bed/Room Type: Standard rt Room Assignment: 213(06/26/24 17:24) eb Diagnosis - Pyelonephritis acute rt - Sepsis, unspecified organism rt Forms: - Medication Reconciliation Form rt - SBAR form rt - Leadership Thank You Letter rt Signatures: Dispatcher [employer] Ayala Valdivia eb Avery Moyer MD MD rt Mikaela Zaidi, RN RN me1 Aaron Holden RN RN tm6 Corrections: (The following items were deleted from the chart) 17:24 16:40 rt eb
--- NOTE | 2024-06-26 16:40 | ER ---
Nurse's Notes [facility] Name: Francie Cota Age: 83 yrs Sex: Female : 1940 Arrival Date: 06/26/2024 Time: 11:57 Bed 15 Private MD: Diagnosis: Pyelonephritis acute;Sepsis, unspecified organism Presentation: 06/26 12:12 Chief complaint: Patient states: Has possibly had a UTI since May. Abdominal pain, tm6 difficulty urinating, sometimes burning when urinating, nausea, fever. Coronavirus screen: Vaccine status: Patient reports receiving the 2nd dose of the covid vaccine. Ebola Screen: Patient negative for fever greater than or equal to 101.5 degrees Fahrenheit, and additional compatible Ebola Virus Disease symptoms Patient denies exposure to infectious person. Patient denies travel to an Ebola-affected area in the 21 days before illness onset. No symptoms or risks identified at this time. Initial Sepsis Screen: Does the patient meet any 2 criteria? HR > 90 bpm. Does the patient have a suspected source of infection? No. Patient's initial sepsis screen is negative. Risk Assessment: Do you want to hurt yourself or someone else? Patient reports no desire to harm self or others. Onset of symptoms was May 27, 2024. 12:12 Method Of Arrival: Ambulatory tm6 12:12 Acuity: CHAD 3 tm6 Triage Assessment: 12:14 General: Appears in no apparent distress. Behavior is calm, cooperative. Pain: tm6 Complains of pain in abdomen and pelvis Pain currently is 8 out of 10 on a pain scale. Pain began May. EENT: No signs and/or symptoms were reported regarding the EENT system. Neuro: Level of Consciousness is awake, alert, obeys commands, Oriented to person, place, time, situation. Cardiovascular: Patient's skin is warm and dry. Respiratory: Airway is patent Respiratory effort is even, unlabored, Respiratory pattern is regular, symmetrical. GI: Abdomen is round Reports lower abdominal pain, upper abdominal pain, nausea. : Reports burning with urination, inability to void. Derm: No signs and/or symptoms reported regarding the dermatologic system. Musculoskeletal: No signs and/or symptoms reported regarding the musculoskeletal system. 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 - Infectious Disease History:: Denies. - Social history:: Smoking status: Patient denies any tobacco usage or history of. Patient uses alcohol, occasionally. - Family history:: not pertinent. Screenin:27 [facility] ED Fall Risk Assessment (Adult) History of falling in the last 3 months, me1 including since admission No falls in past 3 months (0 pts) Confusion or Disorientation No (0 pts) Intoxicated or Sedated No (0 pts) Impaired Gait No (0 pts) Mobility Assist Device Used No (0 pt) Altered Elimination No (0 pt) Score/Fall Risk Level 0 - 2 = Low Risk Maintained a safe environment, Provided non-skid footwear, Hourly rounding (assess needs \\T\\ fall precautionary measures) done. Abuse screen: Denies threats or abuse. Nutritional screening: No deficits noted. Tuberculosis screening: No symptoms or risk factors identified. Assessment: 12:27 General: Appears uncomfortable, ill, well groomed, well developed, well nourished, me1 Behavior is calm, cooperative, appropriate for age, Reports fever for 12-24 hours, Has possibly had a UTI since May. Abdominal pain, difficulty urinating, sometimes burning when urinating, nausea, fever. Pain: Complains of pain in pelvis and abdomen Pain does not radiate. Pain currently is 8 out of 10 on a pain scale. Quality of pain is described as pressure, Pain began gradually, Is continuous. Neuro: Level of Consciousness is awake, alert, obeys commands, Oriented to person, place, time, situation, Appropriate for age. Cardiovascular: Patient's skin is warm and dry. Respiratory: Airway is patent Respiratory effort is even, unlabored, Respiratory pattern is regular, symmetrical. GI: Reports lower abdominal pain, nausea. : Reports burning with urination, pain in suprapubic area with urination, difficulty urinating. EENT: No signs and/or symptoms were reported regarding the EENT system. Derm: Skin is intact, is healthy with good turgor, Skin is pink, warm \\T\\ dry. Musculoskeletal: No signs and/or symptoms reported regarding the musculoskeletal system. 15:00 General: Patient feels "itchy" like she is having a reaction to something. Dr ami Moyer notified. Rec'd order for benadryl. 15:05 General: When medicating patient noted to be hot to touch. Temp 102.[address] ami Moyer notified. . 17:57 General:. me1 Vital Signs: 12:11 BP 118 / 71; Pulse 97; Resp 19; Temp 98(O); Pulse Ox 95% on R/A; Weight 83.91 kg; tm6 Height 5 ft. 1 in. ; Pain 8/10; 12:32 BP 156 / 72; Pulse 98; Resp 16; Pulse Ox 96% ; me1 13:15 BP 127 / 87; Pulse 92; Resp 19; Pulse Ox 98% on R/A; me1 14:00 BP 130 / 86; Pulse 97; Resp 16; Pulse Ox 97% ; me1 15:00 BP 140 / 90; Pulse 115; Resp 19; Pulse Ox 95% on R/A; me1 15:09 Temp 102.5(O); me1 16:00 BP 130 / 73; Pulse 125; Resp 24; Pulse Ox 95% ; me1 16:46 Temp 101.2(O); me1 17:00 BP 123 / 59; Pulse 120; Resp 24; Pulse Ox 93% ; me1 17:30 BP 113 / 70; Pulse 116; Resp 18; Pulse Ox 100% on R/A; me1 18:30 BP 105 / 59; Pulse 109; Resp 19; Temp 99; Pulse Ox 96% on R/A; me1 12:11 Body Mass Index 34.96 (83.91 kg, 154.94 cm) tm6 12:11 Pain Scale: Adult tm6 ED Course: 12:00 Patient arrived in ED. mr 12:08 Avery Moyer MD is Attending Physician. rt 12:14 Triage completed. tm6 12:14 Arm band placed on right wrist. tm6 12:22 Mikaela Zaidi, ABY is Primary Nurse. me1 12:27 Patient has correct armband on for positive identification. Bed in low position. Call [facility] light in reach. Side rails up X 1. Provided Education on: POC. Verbalized understanding. . Client placed on continuous cardiac and pulse oximetry monitoring. NIBP monitoring applied. Pulse ox on. NIBP on. 12:27 No provider procedures requiring assistance completed. me1 13:08 Urinalysis w/ reflexes Sent. me1 13:08 Urine collected: straight cath specimen, cloudy, quoc colored, Amount Returned: 220mL. me1 13:21 Initial lab(s) drawn, by me, sent to lab. First set of blood cultures drawn by me. me1 13:25 CBC with Diff Sent. me1 13:25 CMP Sent. me1 13:25 Lipase Sent. me1 13:25 Ptt, Activated Sent. me1 13:25 Protime (+inr) Sent. me1 13:25 Lactate w/ 2H reflex if indic. Sent. me1 13:25 Blood Culture Adult (2) Sent. me1 13:25 Inserted saline lock: 22 gauge in right antecubital area, using aseptic technique. me1 13:34 Second set of blood cultures drawn by me. me1 15:38 CT Abd/Pelvis - IV Contrast Only In Process Unspecified. EDMS 15:38 CT Head Brain wo Cont In Process Unspecified. EDMS 16:39 Kalin Lara MD is Hospitalizing Provider. rt 16:46 Urine Culture Sent. me1 17:57 Patient admitted, IV remains in place. me1 Administered Medications: 13:31 Drug: NS 0.9% IV 1000 ml IV at 1 bolus Per protocol; 1000 mL bolus Route: IV; Rate: 1 me1 bolus; Site: right antecubital; 17:59 Follow up: Response: No adverse reaction; IV Status: Completed infusion me1 13:31 Drug: Rocephin IV 2 grams IV at calculated rate once; Given slow IV push per pharmarcy me1 instructions Route: IV; Rate: calculated rate; Site: right antecubital; 14:32 Follow up: Response: No adverse reaction; IV Status: Completed infusion me1 14:32 Drug: Ondansetron IVP 4 mg IVP once; over 2 minutes Route: IVP; Site: right antecubital;me1 15:03 Follow up: Response: No adverse reaction; Nausea is decreased me1 15:04 Drug: diphenhydrAMINE IVP 25 mg IVP once Route: IVP; Site: right antecubital; me1 16:44 Follow up: Response: No adverse reaction; Marked relief of symptoms me1 15:09 Drug: Acetaminophen PO 1000 mg PO once Route: PO; me1 16:44 Follow up: Response: No adverse reaction; Temperature is decreased me1 Medication: 12:27 VIS not applicable for this client. me1 Outcome: 16:40 Decision to Hospitalize by Provider. rt 17:57 Admitted to Med/surg accompanied by tech, via stretcher, room 213, with chart, Report me1 called to faxed, receipt confirmed with Julia. 17:57 Condition: stable 17:57 Instructed on the need for admit, 19:08 Patient left the ED. me1 Signatures: Dispatcher [employer] EDMS Francie Garcia, Reg Reg mr Avery Moyer MD MD rt Mikaela Zaidi RN RN me1 Aaron Holden RN RN tm6 Corrections: (The following items were deleted from the chart) 12:22 12:12 Chief complaint: Patient states: Has possibly had a UTI since May. Abdominal me1 pain, difficulty urinating, sometimes burning when urinating, nausea, fever tm6
[2024-06-26] MEDS ORDERED: MORPHINE 4 MG/ML SYR IV PRN (17:06)
[2024-06-26] MEDS ORDERED: HYDROCODONE/APAP 10/325 TAB PO PRN (17:10)
[2024-06-26] MEDS ORDERED: HYDRALAZINE HCL 20 MG/ML VIAL IV PRN (17:12)
[2024-06-26] MEDS: carvediloL 3.125 MG TAB PO SCH (18:00)
[2024-06-26] MEDS: NA CHLORIDE 0.9% 1,000 ML IV SCH (21:53)
[2024-06-26] MEDS: FERROUS SULFATE 325 MG TAB PO SCH (21:54)
[2024-06-27 04:44] LABS: Absolute Monocytes 2.4 K/uL (0.1-1.3); Absolute Neutrophil 13.3 K/uL (1.8-8.0); Basophils % 0.3 % (0-1.3); Hematocrit 33.4 % (36.0-45.0); Hemoglobin 11.1 g/dL (12.0-15.0); Lymphocytes % 5.8 % (15.3-44.8); MCH 28.9 pg (27.0-35.0); MCHC 33.2 g/dL (32.0-36.0); MCV 86.9 fL (80-100); MPV 10.3 fL (7.6-11.3); Monocytes % 14.3 % (3.3-12.3); Neutrophils % 79.6 % (41.7-73.7); Platelets 151 thou/uL (152-406); RBC Red Blood Cell Count 3.84 M/uL (3.86-4.86); Red Cell Distribution Width 16.2 % (12.1-15.2)
[2024-06-27 05:06] LABS: Albumin/Globulin Ratio 0.8 (1.1-1.8); Anion Gap 10.7 mEq/L (5.0-15.0); Bilirubin Total 0.7 mg/dL (0.2-1.0); Globulin 3.7 g/dL (2.3-3.5); Potassium 3.7 mEq/L (3.5-5.1); Protein, Total 6.7 g/dL (6.4-8.2)
[2024-06-27 05:16] LABS: Band Neutrophils 30 % (0-1); Blood Morphology Comment NOT SEEN (NOT SEEN); Differential Total Cells Count 100; Lymphocytes 4 % (15-42); Monocytes 9 % (0-10); Platelet Estimate ADEQ; Reactive Lymphocytes 2 %; Segmented Neutrophils 55 % (40-80)
[2024-06-27 07:14] LABS: PT Prothrombin Time 13.2 SECONDS (9.4-12.5); PTT, Activated Partial Thromb 25.5 SECONDS (24.3-36.9); Protime INR 1.18
[2024-06-27] MEDS: ESCITALOPRAM 20 MG TAB PO SCH (09:06)
[2024-06-27] MEDS: LEVOTHYROXINE SOD 0.05 MG TABLET PO SCH (09:06)
[2024-06-27] MEDS: PANTOPRAZOLE 40MG TABLET PO SCH (09:06)
[2024-06-27] MEDS: CEFTRIAXONE 1,000 MG in NA CHLORIDE 0.9% 50 ML IVPB SCH (09:06)
[2024-06-27] MEDS: ASCORBIC ACID 500 MG TABLET PO SCH (09:06)
[2024-06-27] MEDS: ROSUVASTATIN 10 MG TAB PO SCH (09:06)
[2024-06-27] MEDS: POTASSIUM 25 MEQ EFFERV TAB PO ONE (09:06)
--- NOTE | 2024-06-27 09:48 | P.HP ---
Certification for Inpatient Patient admitted to: Inpatient With expected LOS: >2 Midnights Patient will require the following post-hospital care: None Practitioner: I am a practitioner with admitting privileges, knowledge of patient current condition, hospital course, and medical plan of care. Services: Services provided to patient in accordance with Admission requirements found in Title 42 Section 412.3 of the Code of Federal Regulations Patient History Date of Service: 06/26/24 Reason for admission: Abdominal pain with nausea and vomiting and right flank tenderness History of Present Illness: Patient is an 83-year-old female who came the hospital with abdominal pain with nausea and vomiting. Patient was also having back pain and patient had right flank tenderness. Patient has been having dysuria. Patient had UTI on and off for the last month. Patient came into the emergency room for further evaluation. patient will be admitted to the hospital for further evaluation. Patient had CT scan in the emergency room which revealed pyelonephritis. Patient has decreased urinary stream. Patient's pelvic floor musculature is decreased as well. At this time, patient will be admitted to the hospital for treatment with IV fluids and IV antibiotics. Patient will be admitted for inpatient hospitalization. Allergies adhesive tape Allergy (Verified 10/16/16 22:48) Itching/Hives/Rash Sulfa (Sulfonamide Antibiotics) Allergy (Verified 10/16/16 22:48) Unknown Home Medications: Escitalopram Oxalate 1 tab PO DAILY 10/16/16 Ezetimibe [Zetia*] 1 tab PO DAILY 10/16/16 Hydrocodone/Acetaminophen [Hydrocodone-Acetamin 10-325 mg] 1 each PO PRN PRN 10/16/16 Levothyroxine [Synthroid*] 1 tab PO DAILY 10/16/16 Rosuvastatin Calcium [Crestor] 1 tab PO DAILY 10/16/16 Temazepam [Restoril*] 1 cap PO BEDTIME 10/16/16 Pantoprazole Sodium [Protonix] 40 mg PO DAILY #30 tablet. 10/17/16 Ascorbic Acid/Ascorbate Sodium [Vitamin C 500 mg Tablet Chew] 1,000 tab PO DAILY 12/24/23 Diphenhydramine [Benadryl*] 50 mg PO BEDTIME 12/24/23 Mv-Mn/Iron/Folic Acid/Herb 190 [Vitamin D3 Complete Caplet] PO 12/24/23 Cefdinir [Cefdinir*] 300 mg PO BID #14 cap 12/25/23 Doxycycline Hyclate 100 mg PO BID #14 tab 12/25/23 Ferrous Gluconate 324 mg PO BID #60 tab 12/25/23 carvediloL [Coreg*] 3.125 mg PO BID 6AM 6PM #60 tab 12/25/23 predniSONE [Deltasone] 20 mg PO DAILY #5 tab 12/25/23 - Past Medical/Surgical History Has patient received pneumonia vaccine in the past: Yes -: hyperlipedemia -: hypothyroidism -: depression -: back fusion -: hysterectomy - Social History Smoking Status: Never smoker Alcohol use: No CD- Drugs: No Caffeine use: No Place of Residence: Home Review of Systems 10-point ROS is otherwise unremarkable Physical Examination - Vital Signs Temperature: 98.4 F Blood Pressure: 122/55 Pulse: 93 Respirations: 16 Pulse Ox (%): 90 - Physical Exam General: Alert, In no apparent distress, Oriented x3, Obese HEENT: Atraumatic, PERRLA, Mucous membr. moist/pink, EOMI, Sclerae nonicteric Neck: Supple, 2+ carotid pulse no bruit, No LAD, Without JVD or thyroid abnormality Respiratory: Clear to auscultation bilaterally, Normal air movement Cardiovascular: Regular rate/rhythm, Normal S1 S2, No gallops, No murmurs Gastrointestinal: Normal bowel sounds, Soft and benign, Non-distended, No tenderness, No rebound, No guarding, Tenderness Musculoskeletal: No clubbing, No swelling, No tenderness Integumentary: No rashes Neurological: Normal speech, Normal tone, Sensation intact, Cranial nerves 3-12 intact, Normal affect, Abnormal gait, Abnormal strength Lymphatics: No axilla or inguinal lymphadenopathy - Studies Laboratory Data (last 24 hrs) 06/26/24 06/26/24 06/26/24 13:21 13:21 13:21 WBC 13.40 H Hgb 12.8 Hct 38.7 Plt Count 179 PT 12.4 INR 1.11 APTT 26.4 Sodium 133 L Potassium 3.8 BUN 18 Creatinine 0.85 Glucose 140 H Total Bilirubin 1.1 H AST 35 ALT 30 Alkaline Phosphatase 104 Lipase 15 Assessment & Plan - Problems (Diagnosis) (1) Pyelonephritis Current Visit: Yes Status: Acute (2) Nausea & vomiting Onset Date: 10/17/16 Current Visit: No Status: Acute (3) Depression Current Visit: No Status: Chronic Qualifiers: Depression Type: unspecified Qualified Code(s): F32.9 - Major depressive disorder, single episode, unspecified (4) Fatty liver disease, nonalcoholic Current Visit: No Status: Chronic (5) Hyperlipidemia Current Visit: No Status: Chronic Qualifiers: Hyperlipidemia type: mixed hyperlipidemia Qualified Code(s): E78.2 - Mixed hyperlipidemia (6) Hypertension Current Visit: No Status: Chronic Qualifiers: Hypertension type: essential hypertension Qualified Code(s): I10 - Essential (primary) hypertension (7) Hypothyroidism Current Visit: No Status: Chronic Qualifiers: Hypothyroidism type: acquired Qualified Code(s): E03.9 - Hypothyroidism, unspecified - Plan plan: 1. Continue with IV fluids 2. Continue with IV antibiotics 3. Continue monitoring labs 4. Out of bed and ambulating with physical therapy 5. Await for culture results 6. GI and DVT prophylaxis Discharge Plan: Home Plan to discharge in: Greater than 2 days - Advance Directives Does patient have a Living Will: Yes Does patient have a Durable POA for Healthcare: Yes - Code Status/Comfort Care Code Status Assessed: Yes Code Status: Full Code Critical Care: No Time Spent Managing PTS Care (In Minutes): 45
[2024-06-27] MEDS: ACETAMINOPHEN 500 MG TAB PO PRN (10:15)
[2024-06-27] MEDS: ONDANSETRON 4 MG/2 ML VIAL IV PRN (10:15)
[2024-06-27] MEDS ORDERED: MORPHINE 2 MG/ML SYR IV PRN (11:50)
--- NOTE | 2024-06-27 14:19 | P.PN ---
Subjective Date of Service: 06/27/24 Chief Complaint: Abdominal pain with nausea and vomiting and right flank tenderness Pt is resting comfortably in bed. she complains of right flank pain. Pt is getting rocephin. No other complaints. Review of Systems General: Unremarkable Eyes: Unremarkable ENT: Unremarkable Respiratory: Unremarkable Cardiovascular: Unremarkable Gastrointestinal: Unremarkable Genitourinary: Other (right flank pain) Musculoskeletal: Unremarkable Integumentary: Unremarkable Neurological: Unremarkable Lymphatics: Unremarkable Physical Examination - Vital Signs Temperature: 98.5 F Blood Pressure: 113/56 Pulse: 86 Respirations: 16 Pulse Ox (%): 92 - Physical Exam General: Alert, In no apparent distress, Oriented x3 HEENT: Atraumatic, Normocephalic, PERRLA Neck: Supple, 2+ carotid pulse no bruit, JVD not distended Respiratory: Clear to auscultation bilaterally, Normal air movement Cardiovascular: No edema, Normal pulses, Regular rate/rhythm, Normal S1 S2 Capillary refill: <2 Seconds Gastrointestinal: Normal bowel sounds, Soft and benign, Non-distended Musculoskeletal: No clubbing, No swelling Integumentary: No rashes, No breakdown, No significant lesion Neurological: Normal gait, Normal speech, Normal strength at 5/5 x4 extr, Normal tone, Sensation intact Lymphatics: No axilla or inguinal lymphadenopathy Assessment And Plan - Plan Acute right pyelonephritis: Will continue rocephin and f/u urine cx. Will place downing catheter. Nausea and vomiting: Will continue IVF and prn antiemetics HLD: statin Htn: Continue home med. Hypothyroidism: synthroid. Fatty liver disease, Non-alcoholic: W Depression: Continue home med Deconditioning: Continue PT DVT ppx: SCD Code: full Dispo: Pending hospital course.
--- NOTE | 2024-06-27 17:00 | EKG ---
Test Date: 2024-06-26 Test Time: 13:32:35 Blood Bank Calendar Control Clerk: HILLARY MEASUREMENT RESULTS: Intervals: Rate: 93 TN: 164 QRSD: 138 QT: 382 QTc: 474 [place]: P: 48 TN: 164 QRS: 38 T: 7 INTERPRETIVE STATEMENTS: Normal sinus rhythm Right bundle branch block Abnormal ECG Compared to ECG 12/23/2023 19:48:47 No significant changes Electronically Signed On 06-27-24 16:58:27 CDT by Pineda Steen
--- NOTE | 2024-06-27 19:48 | RAD REPORT ---
EXAM DESCRIPTION: [place] Single View06/27/2024 7:34 pm CLINICAL HISTORY: Shortness of breath COMPARISON: January 2024 FINDINGS: Mild left upper lobe opacity Remainder of the lungs appear clear. Heart is normal size IMPRESSION: Mild left upper lobe opacity may represent confluence of pulmonary vessels or a mild inf iltrate
[2024-06-28 05:41] LABS: Absolute Basophils 0.1 K/uL (0-0.5); Absolute Lymphocytes (CBC) 1.1 K/uL (0.7-4.9); Absolute Monocytes 1.9 K/uL (0.1-1.3); Absolute Neutrophil 9.4 K/uL (1.8-8.0); Basophils % 0.5 % (0-1.3); Eosinophils % 0.2 % (0-4.4); Hematocrit 31.7 % (36.0-45.0); Hemoglobin 10.5 g/dL (12.0-15.0); MCH 28.5 pg (27.0-35.0); MCV 86.5 fL (80-100); MPV 10.5 fL (7.6-11.3); Neutrophils % 75.3 % (41.7-73.7); Platelets 134 thou/uL (152-406); RBC Red Blood Cell Count 3.67 M/uL (3.86-4.86)
[2024-06-28 06:02] LABS: Albumin 2.6 g/dL (3.4-5.0); Albumin/Globulin Ratio 0.7 (1.1-1.8); Anion Gap 7.7 mEq/L (5.0-15.0); Bilirubin Total 0.5 mg/dL (0.2-1.0); Globulin 3.8 g/dL (2.3-3.5); Magnesium 1.9 mg/dL (1.6-2.4); Potassium 3.7 mEq/L (3.5-5.1); Protein, Total 6.4 g/dL (6.4-8.2)
[2024-06-28 06:06] LABS: Phosphorus 1.5 mg/dL (2.5-4.9)
[2024-06-28] MEDS: POTASS/SODIUM PHOSPHATE 1 PKT POWD.PACK PO SCH (07:00)
[2024-06-28] MEDS ORDERED: SODIUM PHOSPHATE 15 MM in NA CHLORIDE 0.9% 250 ML IV ONE (09:00)
[2024-06-28] MEDS: Meropenem 1,000 MG in NA CHLORIDE 0.9% 100 ML IV SCH ×2 (09:06→17:09)
[2024-06-28] MEDS: SODIUM PHOSPHATE 30 MM in NA CHLORIDE 0.9% 500 ML IV SCH (11:16)
--- NOTE | 2024-06-28 12:15 | P.PN ---
Subjective Date of Service: 06/28/24 Chief Complaint: Abdominal pain with nausea and vomiting and right flank tenderness Pt is resting comfortably in bed. she complains of pain in left upper quadrant, over the stomach area. It comes on after eating. Pt denies any peptic ulcer disease. Urine cx is growing ESBL E. coli. No other complaints. Review of Systems General: Unremarkable Eyes: Unremarkable ENT: Unremarkable Respiratory: Unremarkable Cardiovascular: Unremarkable Gastrointestinal: Abdominal Pain Genitourinary: Unremarkable Musculoskeletal: Unremarkable Integumentary: Unremarkable Neurological: Unremarkable Lymphatics: Unremarkable Physical Examination - Vital Signs Temperature: 100.4 F Blood Pressure: 133/68 Pulse: 88 Respirations: 20 Pulse Ox (%): 92 - Physical Exam General: Alert, In no apparent distress, Oriented x3 HEENT: Atraumatic, Normocephalic, PERRLA Neck: Supple, 2+ carotid pulse no bruit, JVD not distended Respiratory: Clear to auscultation bilaterally, Normal air movement Cardiovascular: No edema, Normal pulses, Regular rate/rhythm, Normal S1 S2 Capillary refill: <2 Seconds Gastrointestinal: Normal bowel sounds, Soft and benign, Non-distended Musculoskeletal: No clubbing, No swelling, No contractures Integumentary: No rashes, No breakdown, No significant lesion Neurological: Normal gait, Normal speech, Normal strength at 5/5 x4 extr, Normal tone, Sensation intact Lymphatics: No axilla or inguinal lymphadenopathy - Studies Microbiology Data (last 24 hrs): 06/26/24 13:06 Catheterized Urine [place] Count - Final >100,000 CFU/ML. 06/26/24 13:06 Catheterized Urine - Final Escherichia Coli Esbl Assessment And Plan - Plan Acute right pyelonephritis: Will continue merrem. Urine cx is growing ESBL E.coli. Will place downing catheter. Nausea and vomiting: Will continue IVF and prn antiemetics Hyponatremia: Na is 133. Will continue IVF and trend Na level. HLD: statin Htn: Continue home med. Hypothyroidism: synthroid. Fatty liver disease, Non-alcoholic: Noted Depression: Continue home med Deconditioning: Continue PT DVT ppx: SCD Code: full Dispo: Pending hospital course.
[2024-06-28] MEDS: METOPROLOL TARTRATE 5 MG/5 ML INJ IV PRN (21:28)
[2024-06-28] MEDS: Mupirocin NASAL 2 APPL/1 GM TUBE NAS SCH (21:29)
[2024-06-29] MEDS: LEVOTHYROXINE SOD 0.05 MG TABLET PO SCH (06:10)
[2024-06-29 06:33] LABS: Magnesium 1.9 mg/dL (1.6-2.4); Phosphorus 2.1 mg/dL (2.5-4.9)
[2024-06-29 07:32] VITALS: BMI 35.0
[2024-06-29] MEDS: ARFORMOTEROL TARTRATE 15 MCG/2 ML VIAL.NEB NEB SCH (08:45)
[2024-06-29] MEDS: POTASS/SODIUM PHOSPHATE 1 PKT POWD.PACK PO SCH (09:47)
--- NOTE | 2024-06-29 11:12 | P.PN ---
Date of Service: 06/29/24 Subjective Date of Service: 06/29/24 Chief Complaint: Urine infection with Severe sepsis Pt is resting comfortably in bed. Urine cx is growing ESBL E. coli. States she is feeling better. Excited for PT eval. No other complaints. Review of Systems General: Unremarkable Eyes: Unremarkable ENT: Unremarkable Respiratory: Unremarkable Cardiovascular: Unremarkable Gastrointestinal: Abdominal Pain Genitourinary: Unremarkable Musculoskeletal: Unremarkable Integumentary: Unremarkable Neurological: Unremarkable Lymphatics: Unremarkable Physical Examination - Vital Signs reviewed - Physical Exam General: Alert, In no apparent distress, Oriented x3 HEENT: Atraumatic, Normocephalic, PERRLA Neck: Supple, 2+ carotid pulse no bruit, JVD not distended Respiratory: Clear to auscultation bilaterally, upper aiway wheeze present. Normal air movement Cardiovascular: No edema, Normal pulses, Regular rate/rhythm, Normal S1 S2 Capillary refill: <2 Seconds Gastrointestinal: Normal bowel sounds, Soft and benign, Non-distended Musculoskeletal: No clubbing, No swelling, No contractures Integumentary: No rashes, No breakdown, No significant lesion Neurological: Normal gait, Normal speech, Normal strength at 5/5 x4 extr, Normal tone, Sensation intact Lymphatics: No axilla or inguinal lymphadenopathy - Studies Microbiology Data (last 24 hrs): 06/26/24 13:06 Catheterized Urine [place] Count - Final >100,000 CFU/ML. 06/26/24 13:06 Catheterized Urine - Final Escherichia Coli Esbl Assessment And Plan - Plan Acute right pyelonephritis: severe sepsis Continue merrem. Urine cx and Blood cx is growing ESBL E.coli. Urinary retention Will place downing catheter. clear yellow Nausea and vomiting: Will continue IVF and prn antiemetics Resolved. Hyponatremia: Na is 133. NS stopped. Pt drinking a lot of water. Monitor and trend Fluid restrict prn HLD: statin Htn: Continue home med. Hypothyroidism: synthroid. Fatty liver disease, Non-alcoholic: Noted Depression: Continue home med Deconditioning: Continue PT DVT ppx: SCD Code: full Dispo: Pending hospital course. time spent 30min <Maral He - Last Filed: 06/29/24 11:12> Pt seen and examined. I agree with the note by the BEAD FORMING MACHINE SET UP OPERATOR.Continue iv merrem . onsite case manager is setting up home iv abx infusion. Continue other home meds. <Scott Negro - Last Filed: 06/29/24 21:17>
--- NOTE | 2024-06-29 11:24 | P.PN ---
Date of Service: 06/29/24 Subjective Date of Service: 06/29/24 Chief Complaint: Urine infection with Severe sepsis Pt is resting comfortably in bed. Urine cx is growing ESBL E. coli. States she is feeling better. Excited for PT eval. No other complaints. Review of Systems General: Unremarkable Eyes: Unremarkable ENT: Unremarkable Respiratory: Unremarkable Cardiovascular: Unremarkable Gastrointestinal: Abdominal Pain Genitourinary: Unremarkable Musculoskeletal: Unremarkable Integumentary: Unremarkable Neurological: Unremarkable Lymphatics: Unremarkable Physical Examination - Vital Signs reviewed - Physical Exam General: Alert, In no apparent distress, Oriented x3 HEENT: Atraumatic, Normocephalic, PERRLA Neck: Supple, 2+ carotid pulse no bruit, JVD not distended Respiratory: Clear to auscultation bilaterally, upper aiway wheeze present. Normal air movement Cardiovascular: No edema, Normal pulses, Regular rate/rhythm, Normal S1 S2 Capillary refill: <2 Seconds Gastrointestinal: Normal bowel sounds, Soft and benign, Non-distended Musculoskeletal: No clubbing, No swelling, No contractures Integumentary: No rashes, No breakdown, No significant lesion Neurological: Normal gait, Normal speech, Normal strength at 5/5 x4 extr, Normal tone, Sensation intact Lymphatics: No axilla or inguinal lymphadenopathy - Studies Microbiology Data (last 24 hrs): 06/26/24 13:06 Catheterized Urine [place] Count - Final >100,000 CFU/ML. 06/26/24 13:06 Catheterized Urine - Final Escherichia Coli Esbl Assessment And Plan - Plan Acute right pyelonephritis: severe sepsis Continue merrem. Urine cx and Blood cx is growing ESBL E.coli. Midline placed to Left upper arm. HH for SN/PT/bath aide ordered. Urinary retention Will place downing catheter. clear yellow Nausea and vomiting: Will continue IVF and prn antiemetics Resolved. Hyponatremia: Na is 133. NS stopped. Pt drinking a lot of water. Monitor and trend Fluid restrict prn HLD: statin Htn: Continue home med. Hypothyroidism: synthroid. Fatty liver disease, Non-alcoholic: Noted Depression: Continue home med Deconditioning: Continue PT DVT ppx: SCD Code: full Dispo: Pending hospital course. time spent 30min <Maral He - Last Filed: 06/29/24 11:23> Pt seen and examined. I agree with the note by the MORTGAGE LOAN CLOSER. Will continue iv merrem. Will do trial void today. if unable to urinate will replace downing catheter. Will dc pt with merrem 1 gm iv BID to complete 2 weeks of treatment. Consulted PT for deconditioning. Her daughter refused SNF placement. She wants to be discharged to home. <Scott Negro - Last Filed: 06/29/24 14:03>
[2024-06-29] MEDS: IPRATROPIUM BROM 0.5MG/2.5ML NEB SCH (13:00)
[2024-06-29] MEDS ORDERED: IPRATROPIUM BROM 0.5MG/2.5ML NEB PRN (13:40)
[2024-06-29 16:42] LABS: Absolute Basophils 0.1 K/uL (0-0.5); Absolute Eosinophils 0.2 K/uL (0-0.5); Absolute Lymphocytes (CBC) 1.2 K/uL (0.7-4.9); Absolute Monocytes 1.6 K/uL (0.1-1.3); Absolute Neutrophil 4.2 K/uL (1.8-8.0); Basophils % 0.8 % (0-1.3); Eosinophils % 2.6 % (0-4.4); Hematocrit 28.9 % (36.0-45.0); Hemoglobin 9.8 g/dL (12.0-15.0); MCHC 33.9 g/dL (32.0-36.0); MCV 85.6 fL (80-100); MPV 10.1 fL (7.6-11.3); Monocytes % 21.9 % (3.3-12.3); Neutrophils % 57.7 % (41.7-73.7); Platelets 156 thou/uL (152-406); RBC Red Blood Cell Count 3.37 M/uL (3.86-4.86)
[2024-06-29 16:43] LABS: Anion Gap 11.3 mEq/L (5.0-15.0)
[2024-06-29 16:45] LABS: Potassium 3.3 mEq/L (3.5-5.1)
[2024-06-29 22:07] LABS: Blood Morphology Comment NOT SEEN (NOT SEEN); Differential Total Cells Count 100; Eosinophils 2 % (0-3); Lymphocytes 12 % (15-42); Monocytes 24 % (0-10); Platelet Estimate ADEQ; Segmented Neutrophils 62 % (40-80)
[2024-06-30 05:47] LABS: Absolute Basophils 0.1 K/uL (0-0.5); Absolute Eosinophils 0.2 K/uL (0-0.5); Absolute Lymphocytes (CBC) 1.6 K/uL (0.7-4.9); Absolute Monocytes 1.7 K/uL (0.1-1.3); Absolute Neutrophil 4.4 K/uL (1.8-8.0); Basophils % 0.6 % (0-1.3); Hematocrit 29.1 % (36.0-45.0); Hemoglobin 9.7 g/dL (12.0-15.0); Lymphocytes % 19.5 % (15.3-44.8); MCH 28.6 pg (27.0-35.0); MCHC 33.3 g/dL (32.0-36.0); MCV 86.1 fL (80-100); MPV 10.4 fL (7.6-11.3); Monocytes % 21.6 % (3.3-12.3); Neutrophils % 55.3 % (41.7-73.7); Platelets 176 thou/uL (152-406); RBC Red Blood Cell Count 3.39 M/uL (3.86-4.86); Red Cell Distribution Width 15.7 % (12.1-15.2)
[2024-06-30 06:44] LABS: Albumin 2.5 g/dL (3.4-5.0); Albumin/Globulin Ratio 0.6 (1.1-1.8); Anion Gap 11.2 mEq/L (5.0-15.0); Bilirubin Total 0.5 mg/dL (0.2-1.0); Magnesium 1.9 mg/dL (1.6-2.4); Potassium 3.2 mEq/L (3.5-5.1); Protein, Total 6.5 g/dL (6.4-8.2)
[2024-06-30 09:28] LABS: Ferritin 168.8 ng/mL (8-252); Phosphorus 1.9 mg/dL (2.5-4.9)
[2024-06-30] MEDS: SOD FERRIC GLUC COMPLX/SUCROSE 250 MG in NA CHLORIDE 0.9% 250 ML IV SCH (10:42)
[2024-06-30] MEDS: POTASSIUM CL SA 10 MEQ TAB PO SCH ×2 (10:49→16:00)
--- NOTE | 2024-06-30 12:30 | P.DS ---
Admission Date: 06/26/24 Discharge Date: 06/30/24 Reason for Admission: Abdominal pain with nausea and vomiting and right flank tenderness Procedures: Midline for jail antibiotics. Physical therapy evaluation. Brief History of Present Illness: Patient is an 83-year-old female who came the hospital with abdominal pain with nausea and vomiting. Patient was also having back pain and patient had right flank tenderness. Patient has been having dysuria. Patient had UTI on and off for the last month. Patient came into the emergency room for further evaluation. patient will be admitted to the hospital for further evaluation. Patient had CT scan in the emergency room which revealed pyelonephritis. Patient has decreased urinary stream. Patient's pelvic floor musculature is decreased as well. At this time, patient will be admitted to the hospital for treatment with IV fluids and IV antibiotics. Patient will be admitted for inpatient hospitalization. Hospital Course: Ms. Cota did well over the course of her hospitalization. She did initially have some urinary retention necessitating Sandoval placement. She had some bladder training and is now able to void with very little posterior void residual. A midline was placed for prolonged IV antibiotics for ESBL E. coli bacteria. Patient will go home with home health, bath aide, and a bedside commode. She declined SNF placement at this time. She participated with physical therapy while inpatient . She does have iron deficiency and would prefer IV iron as p.o. iron gives her unsatisfactory side effects. 1 dose of IV iron administered while awaiting home health antibiotic teaching for patient and family. She should follow-up with her PCP for a repeat Chem-7 to check kidney function and possibly outpatient IV iron infusion set up <Maral He - Last Filed: 06/30/24 12:31> Admission Date: 06/26/24 Discharge Date: 06/30/24 Hospital Course: Pt seen and examined. I agree with the note by the OIL WELL LOGGER. Pt is complains of diarrhea, likely due to iron infusion. Will check C diff. Pt will continue merrem 1gm iv BID for 11 more days. Follow up with PCP in clinic. <Scott Negro - Last Filed: 06/30/24 14:01> Disposition: [facility] Discharge Condition: GOOD Vital Signs/Physical Exam: Temp Pulse Resp BP Pulse Ox 97.3 F 72 22 H 163/77 H 93 06/30/24 08:00 06/30/24 08:00 06/30/24 08:00 06/30/24 08:00 06/30/24 08:00 General: Alert, In no apparent distress, Oriented x3 HEENT: Atraumatic, Normocephalic Neck: Supple Respiratory: Normal air movement Cardiovascular: No edema, Normal pulses, Regular rate/rhythm, Normal S1 S2 Capillary refill: <2 Seconds Gastrointestinal: Soft and benign Musculoskeletal: No clubbing Integumentary: No rashes Neurological: Normal speech, Normal tone, Normal affect Lymphatics: No axilla or inguinal lymphadenopathy External genitalia: Deferred Rectal: Deferred Laboratory Data at Discharge: WBC 8.00 thou/uL (4.3-10.9) 06/30/24 05:26 Hgb 9.7 g/dL (12.0-15.0) L 06/30/24 05:26 Hct 29.1 % (36.0-45.0) L 06/30/24 05:26 Plt Count 176 thou/uL (152-406) 06/30/24 05:26 PT 13.2 SECONDS (9.4-12.5) H 06/27/24 04:23 INR 1.18 06/27/24 04:23 APTT 25.5 SECONDS (24.3-36.9) 06/27/24 04:23 Sodium 137 mEq/L (136-145) 06/30/24 06:05 Potassium 3.2 mEq/L (3.5-5.1) L 06/30/24 06:05 BUN 9 mg/dL (7-18) 06/30/24 06:05 Creatinine 0.57 mg/dL (0.55-1.02) 06/30/24 06:05 Glucose 123 mg/dL (74-106) H 06/30/24 06:05 Phosphorus 1.9 mg/dL (2.5-4.9) L 06/30/24 06:05 Magnesium 1.9 mg/dL (1.6-2.4) 06/30/24 06:05 Total Bilirubin 0.5 mg/dL (0.2-1.0) 06/30/24 06:05 AST 180 U/L (15-37) H 06/30/24 06:05 ALT 150 U/L (13-56) H 06/30/24 06:05 Alkaline Phosphatase 105 U/L (45-117) 06/30/24 06:05 Lipase 15 U/L (13-75) 06/26/24 13:21 <He,Maral Deuce - Last Filed: 06/30/24 12:31> Vital Signs/Physical Exam: Temp Pulse Resp BP Pulse Ox 98.0 F 74 20 130/67 93 06/30/24 12:00 06/30/24 12:00 06/30/24 12:00 06/30/24 12:00 06/30/24 12:00 Laboratory Data at Discharge: WBC 8.00 thou/uL (4.3-10.9) 06/30/24 05:26 Hgb 9.7 g/dL (12.0-15.0) L 06/30/24 05:26 Hct 29.1 % (36.0-45.0) L 06/30/24 05:26 Plt Count 176 thou/uL (152-406) 06/30/24 05:26 PT 13.2 SECONDS (9.4-12.5) H 06/27/24 04:23 INR 1.18 06/27/24 04:23 APTT 25.5 SECONDS (24.3-36.9) 06/27/24 04:23 Sodium 137 mEq/L (136-145) 06/30/24 06:05 Potassium 3.2 mEq/L (3.5-5.1) L 06/30/24 06:05 BUN 9 mg/dL (7-18) 06/30/24 06:05 Creatinine 0.57 mg/dL (0.55-1.02) 06/30/24 06:05 Glucose 123 mg/dL (74-106) H 06/30/24 06:05 Phosphorus 1.9 mg/dL (2.5-4.9) L 06/30/24 06:05 Magnesium 1.9 mg/dL (1.6-2.4) 06/30/24 06:05 Total Bilirubin 0.5 mg/dL (0.2-1.0) 06/30/24 06:05 AST 180 U/L (15-37) H 06/30/24 06:05 ALT 150 U/L (13-56) H 06/30/24 06:05 Alkaline Phosphatase 105 U/L (45-117) 06/30/24 06:05 Lipase 15 U/L (13-75) 06/26/24 13:21 <Scott Negro - Last Filed: 06/30/24 14:01> Diet: AHA Activity: Fall precautions <Maral He Deuce - Last Filed: 06/30/24 12:31> <Scott Negro - Last Filed: 06/30/24 14:01> Home Medications: Escitalopram Oxalate 1 tab PO DAILY 10/16/16 Ezetimibe [Zetia*] 1 tab PO DAILY 10/16/16 Levothyroxine [Synthroid*] 1 tab PO DAILY 10/16/16 Rosuvastatin Calcium [Crestor] 1 tab PO DAILY 10/16/16 Temazepam [Restoril*] 1 cap PO BEDTIME 10/16/16 Pantoprazole Sodium [Protonix] 40 mg PO DAILY #30 tablet. 10/17/16 Ascorbic Acid/Ascorbate Sodium [Vitamin C 500 mg Tablet Chew] 1,000 tab PO DAILY 12/24/23 Diphenhydramine [Benadryl*] 50 mg PO BEDTIME 12/24/23 Mv-Mn/Iron/Folic Acid/Herb 190 [Vitamin D3 Complete Caplet] PO 12/24/23 Cefdinir [Cefdinir*] 300 mg PO BID #14 cap 12/25/23 Doxycycline Hyclate 100 mg PO BID #14 tab 12/25/23 Ferrous Gluconate 324 mg PO BID #60 tab 12/25/23 carvediloL [Coreg*] 3.125 mg PO BID 6AM 6PM #60 tab 12/25/23 predniSONE [Deltasone] 20 mg PO DAILY #5 tab 12/25/23 Physician Discharge Instructions: Ms. Cota did well over the course of her hospitalization. She did initially have some urinary retention necessitating Sandoval placement. She had some bladder training and is now able to void with very little posterior void residual. A midline was placed for prolonged IV antibiotics for ESBL E. coli bacteria. Patient will go home with home health, bath aide, and a bedside commode. She declined SNF placement at this time. She participated with physical therapy while inpatient . She does have iron deficiency and would prefer IV iron as p.o. iron gives her unsatisfactory side effects. 1 dose of IV iron administered while awaiting home health antibiotic teaching for patient and family. She should follow-up with her PCP for a repeat Chem-7 to check kidney function and possibly outpatient IV iron infusion set up Continue merrem 1gm iv BID for 11 more days. Followup: SHREYA BARRERA [Primary Care Provider] - 1-2 Weeks Kyaw Mccollum [ACTIVE - CAN ADMIT] -
[2024-06-30 14:42] VITALS: O2SAT 93
[2024-06-30] MEDS: POTASSIUM CL SA 10 MEQ TAB PO ONE (16:00)
[2024-06-30 17:45] VITALS: BP 145/69; TEMP 98
== END 2024-06-30 17:37 | disposition home health service (06) | DRG 872 ==
LOC: ER 11:57 → ERHOLD 17:06 → 2ND 17:53
PROVIDERS: ADMIT Hospitalist; ATTEND Hospitalist
PROC: 02HV33Z Insertion of Infusion Device into Superior Vena Cava, Percutaneous Approach (ICD-10-PCS; principal; 2024-06-28)
PROC: 0T9B70Z Drainage of Bladder with Drainage Device, Via Natural or Artificial Opening (ICD-10-PCS; 2024-06-29)
DX: A41.51 Sepsis due to Escherichia coli [E. coli] (principal); Z16.24 Resistance to multiple antibiotics; N10 Acute pyelonephritis; Z16.12 Extended spectrum beta lactamase (ESBL) resistance; E87.1 Hypo-osmolality and hyponatremia; R65.20 Severe sepsis without septic shock; E78.2 Mixed hyperlipidemia; E88.810 Metabolic syndrome; E03.9 Hypothyroidism, unspecified; E66.9 Obesity, unspecified; F32.A Depression, unspecified; K76.0 Fatty (change of) liver, not elsewhere classified; K44.9 Diaphragmatic hernia without obstruction or gangrene; I10 Essential (primary) hypertension; R33.9 Retention of urine, unspecified; Z88.2 Allergy status to sulfonamides; Z68.34 Body mass index [BMI] 34.0-34.9, adult; Z79.52 Long term (current) use of systemic steroids; Z79.02 Long term (current) use of antithrombotics/antiplatelets; Z79.890 Hormone replacement therapy; Z79.899 Other long term (current) drug therapy; Z90.710 Acquired absence of both cervix and uterus
CPT/HCPCS: 36415; 70450; 71045; 74177; 80048; 80053; 81001; 82728; 83540; 83605; 83690; 83735; 84100; 85025; 85610; 85730; 87040; 87077; 87086; 87088; 87186; 87205; 93005; 94640; 96361; 96365; 96375; 97116; 97161; 97530; 99285; J0696; J1200; J2185; J2405; J2916; J7030; J7040; J7050; J7605; J7644; Q9967